=== PATIENT | male | born 1940 | race Caucasian/White ===

== ENCOUNTER 2018-06-11 14:05 | Emergency (ER) | payer OTHER ==
[~2018-06-11] VITALS: Ht 165.1 cm; Wt 79.4 kg
[~2018-06-11 14:05] MED LIST: ATOR10TA; CLOP75TA28; DOCU-94; DOXY150C2; ENOX30IN5; HYDR-1421
[2018-06-11] MEDS ORDERED: SODIUM CHLORIDE 0.9% 500 ML IVB ONE (14:16)
[2018-06-11] MEDS ORDERED: KETOROLAC TROMETH 30 MG/ML 1ML VIAL IV ONE (14:30)
[2018-06-11 14:33] LABS: Urine Bacteria FEW /hpf (None Seen); Urine Blood 3+ /uL (Negative); Urine Specific Gravity 1.007 (1.001-1.035); Urine WBC 1 /hpf (0 - 3)
[2018-06-11 14:42] LABS: Basophils # (auto) 0 uL; Basophils % (auto) 0.6 % (0.0-2.0); Eosinophils # (auto) 0.1 uL; Eosinophils % (auto) 1.5 % (0.0-7.0); Hematocrit 50.4 % (41.0-53.0); Hemoglobin 16.9 g/dL (13.5-17.5); Lymphocytes # (auto) 0.7 uL; Lymphocytes % (auto) 8.3 % (10.0-50.0); Mean Corpuscular Hemoglobin 31.2 pg (28.0-32.0); Mean Corpuscular Hgb Conc. 33.5 g/dL (32.0-36.0); Mean Corpuscular Volume 93.1 fL (80.0-100.0); Monocytes # (auto) 0.7 uL; Monocytes % (auto) 8.5 % (0.0-12.0); Neutrophils % (auto) 81.1 % (37.0-80.0); Nucleated Red Blood Cells % 0.1 %; Platelet Count (auto) 184 10^3/uL (140-450); Red Blood Cells 5.41 10^6/uL (4.5-5.90); Red Cell Distribution Width 13.6 % (11.8-14.3); White Blood Cell 8.7 10^3/uL (4.4-10.8)
[2018-06-11 14:59] LABS: Albumin 3.7 g/dL (3.4-5.0); BUN/Creatinine Ratio 11.9; Calcium 8.7 mg/dL (8.5-10.1); Potassium 4.3 mmol/L (3.5-5.1)
[2018-06-11 15:02] LABS: Bilirubin, Total 0.5 mg/dL (0.2-1.0); Total Protein 7.4 g/dL (6.4-8.2)
[2018-06-11 15:15] VITALS: BP 149/74
== END 2018-06-11 17:08 | disposition home or self-care (01) ==
LOC: ER 14:05
DX: N20.9 Urinary calculus, unspecified (principal); E78.5 Hyperlipidemia, unspecified; I10 Essential (primary) hypertension; Z79.01 Long term (current) use of anticoagulants; Z79.899 Other long term (current) drug therapy; Z86.73 Personal history of transient ischemic attack (TIA), and cerebral infarction without residual deficits; Z96.698 Presence of other orthopedic joint implants; Z96.643 Presence of artificial hip joint, bilateral
CPT/HCPCS: 36415; 74176; 80053; 81001; 82150; 83690; 85025; 94761; 96374; 99284; J1885; J7040; 96361

== ENCOUNTER 2020-09-28 10:26 | Inpatient (IN) | payer OTHER ==
[~2020-09-28] VITALS: Ht 165.1 cm; Wt 68.0 kg
[2020-09-28] MEDS ORDERED: ONDANSETRON HCL 4 MG/2 ML VIAL IV ONE (11:00)
[2020-09-28] MEDS ORDERED: KETOROLAC TROMETH 30 MG/ML 1ML VIAL IV ONE (11:00)
[2020-09-28] MEDS ORDERED: SODIUM CHLORIDE 0.9% 1,000 ML IVB ONE (11:00)
[2020-09-28 11:46] LABS: Albumin 3.8 g/dL (3.4-5.0); Calcium 8.2 mg/dL (8.5-10.1); Potassium 4.7 mmol/L (3.5-5.1)
[2020-09-28 11:50] LABS: Bilirubin, Total 0.7 mg/dL (0.2-1.0)
[2020-09-28 12:20] LABS: Basophils # (auto) 0 10 ^3/uL (0-0.2); Basophils % (auto) 0.3 % (0.0-2.0); Eosinophils # (auto) 0 10 ^3/uL (0-0.8); Eosinophils % (auto) 0.4 % (0.0-7.0); Hematocrit 46.5 % (41.0-53.0); Hemoglobin 16.5 g/dL (13.5-17.5); Lymphocytes % (auto) 10.2 % (10.0-50.0); Mean Corpuscular Hemoglobin 32.4 pg (28.0-32.0); Mean Corpuscular Hgb Conc. 35.5 g/dL (32.0-36.0); Mean Corpuscular Volume 91.3 fL (80.0-100.0); Monocytes # (auto) 0.9 10 ^3/uL (0-1.3); Monocytes % (auto) 8.8 % (0.0-12.0); Neutrophils % (auto) 80.3 % (37.0-80.0); Nucleated Red Blood Cells % 0.1 %; Platelet Count (auto) 158 10^3/uL (140-450); Red Blood Cells 5.09 10^6/uL (4.5-5.90); Red Cell Distribution Width 13.9 % (11.8-14.3); White Blood Cell 9.9 10^3/uL (4.4-10.8)
[2020-09-28 12:24] LABS: Urine Bacteria NONE SEEN /hpf (None Seen); Urine Blood 2+ /uL (Negative); Urine Specific Gravity 1.028 (1.001-1.035); Urine WBC 2 /hpf (0 - 3)
[2020-09-28] MEDS ORDERED: MORPHINE SULF INJ 2 MG/ML SYRINGE 1ML IV PRN ×2 (13:30)
[2020-09-28] MEDS ORDERED: ACETAMINOPHEN 325 MG TAB PO PRN (13:30)
[2020-09-28] MEDS ORDERED: HYDROcodone-ACET 5/325MG TAB PO PRN (13:30)
[2020-09-28] MEDS ORDERED: ONDANSETRON HCL 4 MG/2 ML VIAL IV PRN (13:30)
[2020-09-28] MEDS ORDERED: TAMSULOSIN HYDROCHLORIDE 0.4 MG CAP PO ONE (13:30)
[2020-09-28] MEDS ORDERED: NITROGLYCERIN 0.4 MG SL TAB SL PRN (13:30)
[2020-09-28] MEDS ORDERED: MANNITOL FTV 25% 12.5 GM/50 ML 50 ML IV ONE ×2 (13:30→14:45)
[2020-09-28] MEDS ORDERED: PHE100C PO (14:01)
[2020-09-28] MEDS: SODIUM CHLORIDE 0.9% 1,000 ML IV SCH ×2 (14:03→17:17)
[2020-09-28] MEDS ORDERED: TAM04C PO (17:09)
[2020-09-28] MEDS ORDERED: HYDR1TAB97 PO (17:09)
[2020-09-28] MEDS ORDERED: ACET325T10 PO (17:09)
[2020-09-28 17:20] VITALS: BP 129/75
[2020-09-28] MEDS ORDERED: ATORVASTATIN 20 MG TAB PO SCH (22:00)
[2020-09-29] MEDS ORDERED: PHENYTOIN SODIUM 100 MG CAP PO SCH (10:00)
[2020-09-29] MEDS ORDERED: CLOPIDOGREL BISULFATE 75 MG TAB PO SCH (10:00)
== END 2020-09-28 21:15 | disposition home or self-care (01) | DRG 694 ==
LOC: ER 10:26 → OVERFLOW 13:28 → CENTRAL 14:47
PROVIDERS: ADMIT Internal Medicine; ATTEND Internal Medicine
DX: N13.2 Hydronephrosis with renal and ureteral calculous obstruction (principal); J98.11 Atelectasis; N18.30 Chronic kidney disease, stage 3 unspecified; Z20.822 Contact with and (suspected) exposure to COVID-19; N40.0 Benign prostatic hyperplasia without lower urinary tract symptoms; I12.9 Hypertensive chronic kidney disease with stage 1 through stage 4 chronic kidney disease, or unspecified chronic kidney disease; G40.909 Epilepsy, unspecified, not intractable, without status epilepticus; K57.30 Diverticulosis of large intestine without perforation or abscess without bleeding; N28.1 Cyst of kidney, acquired; K44.9 Diaphragmatic hernia without obstruction or gangrene; Z90.89 Acquired absence of other organs; Z86.73 Personal history of transient ischemic attack (TIA), and cerebral infarction without residual deficits; Z79.02 Long term (current) use of antithrombotics/antiplatelets; Z79.899 Other long term (current) drug therapy
CPT/HCPCS: 36415; 74176; 80053; 81001; 83690; 85025; 85049; 87426; 96361; 96374; 96375; G0378; J1885; J2405

== ENCOUNTER 2022-06-25 12:21 | Inpatient (IN) | payer OTHER ==
[~2022-06-25] VITALS: Ht 172.7 cm; Wt 77.2 kg
[~2022-06-25 12:21] MED LIST changes: +ACET325T10 PO; -DOCU-94; -DOXY150C2; -ENOX30IN5; -HYDR-1421; +HYDR1TAB97 PO; +PHE100C PO; +TAM04C PO
[2022-06-25 13:03] LABS: Basophils # (auto) 0.1 10 ^3/uL (0-0.2); Basophils % (auto) 0.5 % (0.0-2.0); Eosinophils # (auto) 0 10 ^3/uL (0-0.8); Eosinophils % (auto) 0.3 % (0.0-7.0); Hematocrit 48.1 % (41.0-53.0); Hemoglobin 16.1 g/dL (13.5-17.5); Lymphocytes % (auto) 7.1 % (10.0-50.0); Mean Corpuscular Hemoglobin 31.4 pg (28.0-32.0); Mean Corpuscular Hgb Conc. 33.4 g/dL (32.0-36.0); Mean Corpuscular Volume 93.8 fL (80.0-100.0); Monocytes # (auto) 0.8 10 ^3/uL (0-1.3); Monocytes % (auto) 5.5 % (0.0-12.0); Neutrophils # (auto) 12.3 10 ^3/uL (1.6-8.6); Neutrophils % (auto) 86.6 % (37.0-80.0); Red Blood Cells 5.13 10^6/uL (4.5-5.90); Red Cell Distribution Width 14.7 % (11.8-14.3); White Blood Cell 14.2 10^3/uL (4.4-10.8)
[2022-06-25 13:24] LABS: INR 1.08 (0.9-1.15); Partial Thromboplastin Time 23.9 sec (24.6-33.4)
[2022-06-25 13:35] LABS: Albumin 3.6 g/dL (3.4-5.0); Calcium 8.6 mg/dL (8.5-10.1); Potassium 4.7 mmol/L (3.5-5.1)
[2022-06-25 13:40] LABS: BUN/Creatinine Ratio 29.6 (10.0-20.0); Bilirubin, Total 0.5 mg/dL (0.2-1.0); Total Protein 6.5 g/dL (6.4-8.2)
[2022-06-25] MEDS ORDERED: cefTRIAXone 1GM/50ML D5W 50 ML IV ONE (16:30)
[2022-06-25] MEDS ORDERED: ONDANSETRON HCL 4 MG/2 ML VIAL IV PRN (17:00)
[2022-06-25] MEDS ORDERED: ACETAMINOPHEN 500 MG TAB PO PRN (17:00)
[2022-06-25] MEDS ORDERED: NITROGLYCERIN 0.4 MG SL TAB SL PRN (17:00)
[2022-06-25] MEDS ORDERED: hydrALAZINE HCL 20 MG/ML VL IV PRN (17:00)
[2022-06-25] MEDS ORDERED: MORPHINE SULFATE INJ 2 MG/ml SYRG IV PRN (17:00)
[2022-06-25] MEDS ORDERED: ACETAMINOPHEN 325 MG TAB PO PRN (17:00)
[2022-06-25 18:24] LABS: Urine Bacteria MOD /hpf (None Seen); Urine Blood 3+ /uL (Negative); Urine WBC 10 /hpf (0 - 3)
[2022-06-25 18:28] LABS: Urine Specific Gravity 1.023 (1.001-1.035)
[2022-06-25] MEDS: D5W/SOD CHLO 0.9% 1,000 ML IV SCH (20:12)
[2022-06-26] MEDS: D5W/SOD CHLO 0.9% 1,000 ML IV SCH ×2 (06:20→09:36)
[2022-06-26] MEDS: FAMOTIDINE 20 MG TAB PO SCH (09:35)
[2022-06-26] MEDS: cefTRIAXone 1GM/50ML D5W 50 ML IV SCH (09:35)
[2022-06-26 11:23] LABS: Urine Bacteria FEW /hpf (None Seen); Urine Blood 3+ /uL (Negative); Urine Specific Gravity 1.009 (1.001-1.035); Urine WBC 6 /hpf (0 - 3)
[2022-06-26] MEDS ORDERED: IOHEXOL 300 MG/ML 100ML BOTTLE IJ ONE (13:19)
[2022-06-26] MEDS ORDERED: TAMSULOSIN HYDROCHLORIDE 0.4 MG CAP PO ONE (15:15)
[2022-06-26] MEDS ORDERED: FINASTERIDE 5 MG TAB PO ONE (15:15)
[2022-06-26] MEDS ORDERED: FINA5TAB4 PO (15:50)
[2022-06-26] MEDS ORDERED: MORPHINE SULFATE INJ 2 MG/ml SYRG IV PRN (17:15)
[2022-06-26] MEDS ORDERED: PHEN50CH4 OR (18:07)
[2022-06-26] MEDS: CARBIDOPA W LEVODOPA 10/100mg TABLET PO SCH (22:00)
[2022-06-26] MEDS ORDERED: LORazepam 2MG/ML-1ML VIAL IV ONE (23:30)
[2022-06-27] MEDS ORDERED: MELATONIN 5 MG TAB PO ONE (00:30)
[2022-06-27] MEDS ORDERED: diphenhdrAMINE HCL 50 MG/1 ML VL IV ONE (02:00)
[2022-06-27 07:44] LABS: Basophils # (auto) 0.1 10 ^3/uL (0-0.2); Basophils % (auto) 0.8 % (0.0-2.0); Eosinophils # (auto) 0.1 10 ^3/uL (0-0.8); Eosinophils % (auto) 1.6 % (0.0-7.0); Hematocrit 41.2 % (41.0-53.0); Hemoglobin 14.4 g/dL (13.5-17.5); Lymphocytes # (auto) 1.2 10 ^3/uL (0.4-5.4); Lymphocytes % (auto) 13.3 % (10.0-50.0); Mean Corpuscular Hemoglobin 32.1 pg (28.0-32.0); Mean Corpuscular Hgb Conc. 34.9 g/dL (32.0-36.0); Mean Corpuscular Volume 91.8 fL (80.0-100.0); Monocytes # (auto) 1.1 10 ^3/uL (0-1.3); Monocytes % (auto) 12.9 % (0.0-12.0); Neutrophils # (auto) 6.2 10 ^3/uL (1.6-8.6); Neutrophils % (auto) 71.4 % (37.0-80.0); Nucleated Red Blood Cells % 0.2 %; Red Blood Cells 4.49 10^6/uL (4.5-5.90); Red Cell Distribution Width 14.5 % (11.8-14.3); White Blood Cell 8.7 10^3/uL (4.4-10.8)
[2022-06-27 08:01] LABS: INR 1.12 (0.9-1.15); Partial Thromboplastin Time 27.5 sec (24.6-33.4)
[2022-06-27 08:05] LABS: Calcium 8.4 mg/dL (8.5-10.1); Potassium 4.1 mmol/L (3.5-5.1)
[2022-06-27] MEDS: D5W/SOD CHLO 0.9% 1,000 ML IV SCH (09:00)
[2022-06-27] MEDS: cefTRIAXone 1GM/50ML D5W 50 ML IV SCH (09:00)
[2022-06-27] MEDS: FAMOTIDINE 20 MG TAB PO SCH (09:30)
[2022-06-27] MEDS: CARBIDOPA W LEVODOPA 10/100mg TABLET PO SCH (09:30)
[2022-06-27 09:43] VITALS: BP 97/55
[2022-06-27] MEDS ORDERED: FINASTERIDE 5 MG TAB PO SCH (10:00)
[2022-06-27] MEDS ORDERED: KEP500T PO (13:11)
[2022-06-27] MEDS ORDERED: CIPR-173 PO (13:11)
[2022-06-27 14:05] VITALS: BP 116/74
== END 2022-06-27 16:28 | disposition home or self-care (01) | DRG 101 ==
LOC: EDBD 12:21 → ER 12:21 → EDSEX 12:21 → TELE 16:57 → TELE-WESTW 06-26 16:09
PROVIDERS: ADMIT Hospitalist; ATTEND Hospitalist
DX: G40.909 Epilepsy, unspecified, not intractable, without status epilepticus (principal); N39.0 Urinary tract infection, site not specified; S00.83XA Contusion of other part of head, initial encounter; F03.90 Unspecified dementia, unspecified severity, without behavioral disturbance, psychotic disturbance, mood disturbance, and anxiety; I10 Essential (primary) hypertension; E78.5 Hyperlipidemia, unspecified; G20 Parkinson's disease; I25.10 Atherosclerotic heart disease of native coronary artery without angina pectoris; Z96.643 Presence of artificial hip joint, bilateral; N40.1 Benign prostatic hyperplasia with lower urinary tract symptoms; M19.09 Primary osteoarthritis, other specified site; R32 Unspecified urinary incontinence; R29.6 Repeated falls; W19.XXXA Unspecified fall, initial encounter; X58.XXXA Exposure to other specified factors, initial encounter; Z82.49 Family history of ischemic heart disease and other diseases of the circulatory system; Z86.73 Personal history of transient ischemic attack (TIA), and cerebral infarction without residual deficits; Z87.442 Personal history of urinary calculi; Z79.899 Other long term (current) drug therapy; Y92.009 Unspecified place in unspecified non-institutional (private) residence as the place of occurrence of the external cause; Z87.891 Personal history of nicotine dependence
CPT/HCPCS: 36415; 70450; 70486; 70551; 71045; 72125; 72192; 74178; 80048; 80053; 80185; 81001; 84484; 85025; 85379; 85610; 85730; 87086; 87426; 93306; 97163; G0378; J0696; J7060

== ENCOUNTER 2022-08-11 13:53 | Inpatient (IN) | payer OTHER ==
[~2022-08-11] VITALS: Ht 165.1 cm; Wt 76.9 kg
[~2022-08-11 13:53] MED LIST changes: +CIPR-173 PO; +FINA5TAB4 PO; +KEP500T PO; -PHE100C PO
[2022-08-11 15:14] LABS: Basophils # (auto) 0 10 ^3/uL (0-0.2); Basophils % (auto) 0.6 % (0.0-2.0); Eosinophils # (auto) 0.3 10 ^3/uL (0-0.8); Eosinophils % (auto) 4.6 % (0.0-7.0); Hematocrit 47.6 % (41.0-53.0); Hemoglobin 15.9 g/dL (13.5-17.5); Lymphocytes # (auto) 1.1 10 ^3/uL (0.4-5.4); Lymphocytes % (auto) 16.7 % (10.0-50.0); Mean Corpuscular Hgb Conc. 33.4 g/dL (32.0-36.0); Mean Corpuscular Volume 92.7 fL (80.0-100.0); Monocytes # (auto) 0.7 10 ^3/uL (0-1.3); Monocytes % (auto) 11.4 % (0.0-12.0); Neutrophils # (auto) 4.4 10 ^3/uL (1.6-8.6); Neutrophils % (auto) 66.7 % (37.0-80.0); Nucleated Red Blood Cells % 0.1 %; Red Blood Cells 5.14 10^6/uL (4.5-5.90); Red Cell Distribution Width 13.3 % (11.8-14.3); White Blood Cell 6.6 10^3/uL (4.4-10.8)
[2022-08-11 15:34] LABS: Calcium 8.9 mg/dL (8.5-10.1); Magnesium 2.6 mg/dL (1.6-2.6); Potassium 4.9 mmol/L (3.5-5.1)
[2022-08-11 15:37] LABS: BUN/Creatinine Ratio 19.4 (10.0-20.0); Bilirubin, Total 0.8 mg/dL (0.2-1.0); Total Protein 7.2 g/dL (6.4-8.2)
[2022-08-11 15:41] LABS: INR 1.03 (0.9-1.15); Partial Thromboplastin Time 28.2 sec (24.6-33.4)
[2022-08-11] MEDS ORDERED: HYDROcodone-ACET 5/325MG TAB PO PRN (22:00)
[2022-08-11] MEDS ORDERED: ONDANSETRON HCL 4 MG/2 ML VIAL IV PRN (22:00)
[2022-08-11] MEDS ORDERED: ACETAMINOPHEN 500 MG TAB PO PRN (22:00)
[2022-08-11] MEDS ORDERED: DOCUSATE SOD 100 MG CAP PO PRN (22:00)
[2022-08-11] MEDS ORDERED: NITROGLYCERIN 0.4 MG SL TAB SL PRN (23:15)
[2022-08-11] MEDS ORDERED: MORPHINE SULFATE INJ 2 MG/ml SYRG IV PRN (23:15)
[2022-08-11] MEDS: SODIUM CHLORIDE 0.9% 1,000 ML IV SCH (23:32)
[2022-08-11] MEDS: ATORVASTATIN 20 MG TAB PO SCH (23:32)
[2022-08-12 06:15] LABS: Basophils # (auto) 0 10 ^3/uL (0-0.2); Basophils % (auto) 0.6 % (0.0-2.0); Eosinophils # (auto) 0.4 10 ^3/uL (0-0.8); Eosinophils % (auto) 5.9 % (0.0-7.0); Hematocrit 44.9 % (41.0-53.0); Hemoglobin 15.2 g/dL (13.5-17.5); Lymphocytes # (auto) 1.4 10 ^3/uL (0.4-5.4); Lymphocytes % (auto) 22.8 % (10.0-50.0); Mean Corpuscular Hemoglobin 31.3 pg (28.0-32.0); Mean Corpuscular Hgb Conc. 33.8 g/dL (32.0-36.0); Mean Corpuscular Volume 92.4 fL (80.0-100.0); Monocytes # (auto) 0.9 10 ^3/uL (0-1.3); Neutrophils # (auto) 3.5 10 ^3/uL (1.6-8.6); Neutrophils % (auto) 56.7 % (37.0-80.0); Nucleated Red Blood Cells % 0.3 %; Red Blood Cells 4.85 10^6/uL (4.5-5.90); Red Cell Distribution Width 12.8 % (11.8-14.3); White Blood Cell 6.2 10^3/uL (4.4-10.8)
[2022-08-12 06:40] LABS: Potassium 4.3 mmol/L (3.5-5.1)
[2022-08-12 06:48] LABS: Albumin 3.3 g/dL (3.4-5.0); Bilirubin, Total 0.6 mg/dL (0.2-1.0); Calcium 8.4 mg/dL (8.5-10.1); Total Protein 6.6 g/dL (6.4-8.2)
[2022-08-12] MEDS: ASPirin 81 mg TAB PO SCH (09:41)
[2022-08-12] MEDS: levETIRAcetam 500 MG TAB PO SCH ×2 (09:41→21:35)
[2022-08-12] MEDS: SODIUM CHLORIDE 0.9% 1,000 ML IV SCH (14:40)
[2022-08-12 17:35] VITALS: BP 124/74
[2022-08-12 19:14] LABS: Hepatitis C Antibody Negative (Negative)
[2022-08-12] MEDS: ATORVASTATIN 20 MG TAB PO SCH (21:35)
[2022-08-12 22:00] VITALS: BP 105/52
[2022-08-13 05:00] VITALS: BP 112/76
[2022-08-13] MEDS: SODIUM CHLORIDE 0.9% 1,000 ML IV SCH (07:20)
[2022-08-13 09:00] VITALS: BP 130/72
[2022-08-13] MEDS: levETIRAcetam 500 MG TAB PO SCH (09:06)
[2022-08-13] MEDS: ASPirin 81 mg TAB PO SCH (09:06)
[2022-08-13 13:00] VITALS: BP 103/62
== END 2022-08-13 14:28 | disposition home or self-care (01) | DRG 69 ==
LOC: ER 13:53 → TELE 23:10 → TELE-WESTW 08-12 15:29
PROVIDERS: ADMIT Nurse Practitioner Family; ATTEND Internal Medicine
DX: G45.9 Transient cerebral ischemic attack, unspecified (principal); I62.03 Nontraumatic chronic subdural hemorrhage; I10 Essential (primary) hypertension; G20 Parkinson's disease; E78.5 Hyperlipidemia, unspecified; G40.909 Epilepsy, unspecified, not intractable, without status epilepticus; R26.81 Unsteadiness on feet; Z86.73 Personal history of transient ischemic attack (TIA), and cerebral infarction without residual deficits; Z87.442 Personal history of urinary calculi
CPT/HCPCS: 36415; 70450; 71045; 80053; 82962; 83735; 83880; 84484; 85025; 85610; 85730; 86803; 87340; 93005; G0378

== ENCOUNTER 2022-08-24 19:41 | Emergency (ER) | payer OTHER ==
[~2022-08-24] VITALS: Ht 165.1 cm; Wt 74.9 kg
[~2022-08-24 19:41] MED LIST changes: -ACET325T10 PO; -CIPR-173 PO; -HYDR1TAB97 PO; -TAM04C PO
[2022-08-24 21:11] LABS: Albumin 3.5 g/dL (3.4-5.0); Calcium 8.5 mg/dL (8.5-10.1); Potassium 4.1 mmol/L (3.5-5.1)
[2022-08-24 21:15] LABS: BUN/Creatinine Ratio 19.6 (10.0-20.0); Bilirubin, Total 0.4 mg/dL (0.2-1.0); Total Protein 6.8 g/dL (6.4-8.2)
[2022-08-24 21:20] LABS: Basophils # (auto) 0 10 ^3/uL (0-0.2); Basophils % (auto) 0.5 % (0.0-2.0); Eosinophils # (auto) 0.3 10 ^3/uL (0-0.8); Eosinophils % (auto) 5.6 % (0.0-7.0); Hematocrit 46.2 % (41.0-53.0); Hemoglobin 15.7 g/dL (13.5-17.5); Lymphocytes # (auto) 1.6 10 ^3/uL (0.4-5.4); Lymphocytes % (auto) 25.8 % (10.0-50.0); Mean Corpuscular Hemoglobin 31.5 pg (28.0-32.0); Mean Corpuscular Hgb Conc. 34.1 g/dL (32.0-36.0); Mean Corpuscular Volume 92.3 fL (80.0-100.0); Monocytes % (auto) 15.9 % (0.0-12.0); Neutrophils # (auto) 3.3 10 ^3/uL (1.6-8.6); Neutrophils % (auto) 52.2 % (37.0-80.0); Nucleated Red Blood Cells % 0.2 %; Red Cell Distribution Width 12.8 % (11.8-14.3); White Blood Cell 6.2 10^3/uL (4.4-10.8)
[2022-08-24 21:32] LABS: INR 1.07 (0.9-1.15); Partial Thromboplastin Time 27.1 sec (24.6-33.4)
[2022-08-24 22:00] VITALS: BP 148/81
== END 2022-08-24 22:46 | disposition home or self-care (01) ==
LOC: ER 19:41
DX: I62.03 Nontraumatic chronic subdural hemorrhage (principal); E78.5 Hyperlipidemia, unspecified; I10 Essential (primary) hypertension; Z86.73 Personal history of transient ischemic attack (TIA), and cerebral infarction without residual deficits; Z87.442 Personal history of urinary calculi
CPT/HCPCS: 36415; 70450; 80053; 85025; 85610; 85730

== ENCOUNTER 2023-10-01 18:43 | Emergency (ER) | payer OTHER ==
[~2023-10-01] VITALS: Ht 165.1 cm; Wt 72.7 kg
[~2023-10-01 18:43] MED LIST changes: -ATOR10TA; +ATOR10TA PO; +AUG875T PO; +BACL10TA PO; -CLOP75TA28; +CLOP75TA28 PO; +TRAM50TA2 PO
[2023-10-01] MEDS ORDERED: MAGN100T6 OR (22:19)
[2023-10-01] MEDS ORDERED: DOCU-96 PO (22:24)
[2023-10-01] MEDS: FLEET ENEMA(ADULT) 135 ML PR ONE (23:08)
[2023-10-01 23:30] VITALS: BP 142/76; PULSE 76; RESP 18; TEMP 98.3; O2SAT 97
== END 2023-10-01 23:55 | disposition home or self-care (01) ==
LOC: EDBD 18:43 → ER 18:43
DX: K59.00 Constipation, unspecified (principal); I10 Essential (primary) hypertension; E78.5 Hyperlipidemia, unspecified; Z86.73 Personal history of transient ischemic attack (TIA), and cerebral infarction without residual deficits; Z87.442 Personal history of urinary calculi; Z98.890 Other specified postprocedural states; Z79.899 Other long term (current) drug therapy
CPT/HCPCS: 74018

== ENCOUNTER 2023-12-15 07:59 | Day surgery (SDC) | payer OTHER ==
[~2023-12-15] VITALS: Ht 165.1 cm; Wt 74.4 kg
[2023-12-15] VITALS (12 sets, daily range): BP systolic 109–139; BP diastolic 56–81; PULSE 55–74; RESP 12–18; TEMP 98.4; O2SAT 94–95
[~2023-12-15 07:59] MED LIST changes: -AUG875T PO; +DOCU-96 PO; +MAGN100T6 OR
[2023-12-15] MEDS ORDERED: IODIXANOL 320MG/ML 100ML BTL IV ONE (08:00)
[2023-12-15] MEDS ORDERED: HEPARIN SODIUM (PORCINE) 5000 UNITS/ML 1ML VIAL ONE (09:03)
[2023-12-15] MEDS ORDERED: ANGIOMAX 250 MG VIAL IV ONE (09:03)
[2023-12-15] MEDS ORDERED: LIDOCAINE 2%HCL (LOCAL ANESTH.) INJ 20ML MDV ONE (09:04)
[2023-12-15] MEDS ORDERED: VERAPAMIL 2.5MG/ML INJ 2ML VIAL IV ONE (09:04)
[2023-12-15] MEDS ORDERED: fentaNYL CITRATE 100 MCG/2 ML VL ONE (09:04)
[2023-12-15] MEDS ORDERED: MIDAZOLAM HCL 2MG/2ML 2ml VIAL (1mg/ml) ONE (09:04)
[2023-12-15] MEDS ORDERED: SODIUM CHL 0.9% 50 ML ONE (09:04)
[2023-12-19] MEDS ORDERED: ASPI81CH59 PO (13:35)
[2024-01-03] MEDS ORDERED: TAMS0.4C39 PO (13:35)
[2024-01-04] MEDS ORDERED: MET25T PO (13:35)
[2024-01-07] MEDS ORDERED: ATOR-507 PO (13:35)
== END 2023-12-15 15:00 | disposition home or self-care (01) ==
LOC: CATH 07:59
PROVIDERS: ATTEND Internal Medicine
DX: I25.10 Atherosclerotic heart disease of native coronary artery without angina pectoris (principal); R94.39 Abnormal result of other cardiovascular function study; E78.5 Hyperlipidemia, unspecified; Z79.01 Long term (current) use of anticoagulants; Z79.82 Long term (current) use of aspirin; Z79.899 Other long term (current) drug therapy
CPT/HCPCS: 93454; C1725; C1769; C1887; C1894; J0583; J2250; J3010; Q9967; 99152; 99153

== ENCOUNTER 2024-01-11 06:59 | Inpatient (IN) | payer OTHER ==
[~2024-01-11] VITALS: Ht 165.1 cm; Wt 72.6 kg
[2024-01-11 01:00] VITALS: BP 139/78; PULSE 73; RESP 20; TEMP 97; O2SAT 93
[~2024-01-11 06:59] MED LIST changes: +ASPI81CH59 PO; +ATOR-507 PO; +MET25T PO; +TAMS0.4C39 PO
[2024-01-11 07:37] LABS: Basophils # (auto) 0 10 ^3/uL (0-0.2); Basophils % (auto) 0.3 % (0.0-2.0); Eosinophils # (auto) 0.4 10 ^3/uL (0-0.8); Hematocrit 35.7 % (41.0-53.0); Lymphocytes # (auto) 1.7 10 ^3/uL (0.4-5.4); Lymphocytes % (auto) 18.5 % (10.0-50.0); Mean Corpuscular Hemoglobin 31.4 pg (28.0-32.0); Mean Corpuscular Hgb Conc. 33.6 g/dL (32.0-36.0); Mean Corpuscular Volume 93.4 fL (80.0-100.0); Neutrophils % (auto) 66.2 % (37.0-80.0); Platelet Count (auto) 271 10^3/uL (140-450); Red Blood Cells 3.82 10^6/uL (4.5-5.90); Red Cell Distribution Width 14.1 % (11.8-14.3); White Blood Cell 9.1 10^3/uL (4.4-10.8)
[2024-01-11] MEDS: IOHEXOL 350 MG/ML 100ML IJ ONE (08:06)
[2024-01-11] MEDS: FUROSEMIDE 40 MG/4 ML VIAL IV ONE (10:19)
[2024-01-11] MEDS ORDERED: ACETAMINOPHEN 325 MG TAB PO PRN (14:45)
[2024-01-11] MEDS ORDERED: MORPHINE SULFATE INJ 2 MG/ml SYRG IV PRN ×2 (14:45)
[2024-01-11] MEDS ORDERED: NITROGLYCERIN 0.4 MG SL TAB SL PRN (14:45)
[2024-01-11] MEDS ORDERED: ONDANSETRON HCL 4 MG/2 ML VIAL IV PRN (14:45)
[2024-01-11 14:55] LABS: Chloride 109 mmol/L (98-107); Potassium 4.1 mmol/L (3.5-5.1); Sodium 140 mmol/L (136-145)
[2024-01-11 14:56] LABS: Anion Gap 9 (5-15); Carbon Dioxide 22 mmol/L (20-31)
[2024-01-11 14:57] LABS: Calcium 9.4 mg/dL (8.7-10.4)
[2024-01-11 15:01] LABS: Glucose 111 mg/dL (74-106)
[2024-01-11 15:02] LABS: BUN/Creatinine Ratio 17.6 (10.0-20.0); Blood Urea Nitrogen 18 mg/dL (9-23)
[2024-01-11] MEDS: cefTRIAXone 1GM/50ML D5W 50 ML IV SCH (16:43)
[2024-01-11] MEDS: AZITHROMYCIN 500MG/ 250ML 250 ML IV ONE (16:44)
[2024-01-11] MEDS: FUROSEMIDE 40 MG/4 ML VIAL IV SCH (17:21)
[2024-01-11] MEDS: FINASTERIDE 5 MG TAB PO SCH (17:21)
[2024-01-11] MEDS: HYDROcodone-ACET 5/325MG TAB PO PRN (20:01)
[2024-01-11 21:45] VITALS: BP 129/79; PULSE 76; RESP 20; TEMP 97.6; O2SAT 94
[2024-01-12] VITALS (7 sets, daily range): BP systolic 109–139; BP diastolic 63–80; PULSE 70–83; RESP 16–20; TEMP 97–98; O2SAT 93–98
[2024-01-12] MEDS: ATORVASTATIN 20 MG TAB PO SCH (00:29)
[2024-01-12] MEDS: DOCUSATE SOD 100 MG CAP PO SCH (00:30)
[2024-01-12] MEDS: levETIRAcetam 500 MG TAB PO SCH (00:30)
[2024-01-12 05:55] LABS: Basophils # (auto) 0.1 10 ^3/uL (0-0.2); Basophils % (auto) 0.5 % (0.0-2.0); Eosinophils # (auto) 0.5 10 ^3/uL (0-0.8); Eosinophils % (auto) 4.7 % (0.0-7.0); Hematocrit 39.2 % (41.0-53.0); Hemoglobin 13.3 g/dL (13.5-17.5); Lymphocytes # (auto) 1.9 10 ^3/uL (0.4-5.4); Lymphocytes % (auto) 18.4 % (10.0-50.0); Mean Corpuscular Hemoglobin 31.6 pg (28.0-32.0); Monocytes # (auto) 1.1 10 ^3/uL (0-1.3); Monocytes % (auto) 10.4 % (0.0-12.0); Neutrophils # (auto) 6.8 10 ^3/uL (1.6-8.6); Nucleated Red Blood Cells % 0.1 %; Platelet Count (auto) 296 10^3/uL (140-450); Red Blood Cells 4.21 10^6/uL (4.5-5.90); Red Cell Distribution Width 14.1 % (11.8-14.3); White Blood Cell 10.4 10^3/uL (4.4-10.8)
[2024-01-12 06:08] LABS: INR 1.11 (0.9-1.15); Partial Thromboplastin Time 26.2 SEC (24.5-34.5); Prothrombin Time 11.7 sec (9.3-11.8)
[2024-01-12 06:16] LABS: Triglycerides 94 mg/dL (< 150)
[2024-01-12 06:17] LABS: LDL Cholesterol 60 mg/dL (< 100)
[2024-01-12 06:18] LABS: Cholesterol 124 mg/dL (< 200); HDL Cholesterol 50 mg/dL (40-59)
[2024-01-12 06:23] LABS: Alanine Aminotransferase 26 U/L (7-40); Albumin 4.3 g/dL (3.2-4.8); Alkaline Phosphatase 103 U/L (46-116); Anion Gap 10 (5-15); Aspartate Aminotransferase 24 U/L (13-40); BUN/Creatinine Ratio 16.7 (10.0-20.0); Blood Urea Nitrogen 17 mg/dL (9-23); Calcium 9.3 mg/dL (8.7-10.4); Carbon Dioxide 26 mmol/L (20-31); Chloride 105 mmol/L (98-107); Glucose 102 mg/dL (74-106); Magnesium 2.2 mg/dL (1.6-2.6); Potassium 3.6 mmol/L (3.5-5.1); Sodium 141 mmol/L (136-145)
[2024-01-12 06:24] LABS: Bilirubin, Total 0.9 mg/dL (0.2-1.0); Total Protein 6.8 g/dL (5.7-8.2)
[2024-01-12] MEDS: ENOXAPARIN SOD 40 MG/0.4 ML SYRINGE SC SCH (10:11)
[2024-01-12] MEDS: CLOPIDOGREL BISULFATE 75 MG TAB PO SCH (10:11)
[2024-01-12] MEDS: AZITHROMYCIN 500MG/ 250ML 250 ML IV SCH (10:12)
[2024-01-13] VITALS (8 sets, daily range): BP systolic 102–117; BP diastolic 63–75; PULSE 60–83; RESP 17–18; TEMP 97.9–99; O2SAT 92–96
[2024-01-13 03:34] LABS: Urine Bacteria None Seen /hpf (None Seen); Urine WBC None Seen /hpf (0 - 3)
[2024-01-13 03:39] LABS: Urine Blood Negative /uL (Negative); Urine Clarity Clear (Clear); Urine Color STRAW (Yellow); Urine Protein, UAD Negative (Negative); Urine Specific Gravity 1.008 (1.001-1.035); Urine Urobilinogen Normal (Negative)
[2024-01-13 03:53] LABS: Amphetamine Screen, Urine Neg (NEGATIVE); Barbiturate Scree,Urine Neg (NEGATIVE); Benzodiazephine Screen, Urine Neg (NEGATIVE); Cocaine Screen, Urine Neg (NEGATIVE); Opiate Scree,Urine Neg (NEGATIVE)
[2024-01-13 03:54] LABS: Cannabinoid Screen, Urine Neg (NEGATIVE); Phencyclidine Screen, Urine Neg (NEGATIVE)
[2024-01-13] MEDS ORDERED: AUG875T PO (16:02)
== END 2024-01-13 22:10 | disposition home health service (06) | DRG 177 ==
LOC: ER 06:59 → TELE 14:34 → TELE-WESTW 14:34
PROVIDERS: ADMIT Internal Medicine; ATTEND Internal Medicine
DX: J15.69 Pneumonia due to other Gram-negative bacteria (principal); I50.33 Acute on chronic diastolic (congestive) heart failure; I11.0 Hypertensive heart disease with heart failure; J15.9 Unspecified bacterial pneumonia; I25.10 Atherosclerotic heart disease of native coronary artery without angina pectoris; G40.909 Epilepsy, unspecified, not intractable, without status epilepticus; E78.5 Hyperlipidemia, unspecified; F03.90 Unspecified dementia, unspecified severity, without behavioral disturbance, psychotic disturbance, mood disturbance, and anxiety; Z95.1 Presence of aortocoronary bypass graft; Z86.73 Personal history of transient ischemic attack (TIA), and cerebral infarction without residual deficits; Z85.828 Personal history of other malignant neoplasm of skin; Z87.442 Personal history of urinary calculi; Z96.649 Presence of unspecified artificial hip joint; Z79.899 Other long term (current) drug therapy
CPT/HCPCS: 36415; 71045; 71275; 80048; 80053; 80061; 80307; 81001; 82306; 82607; 83036; 83735; 83880; 84443; 84484; 85025; 85379; 85610; 85730; 93005; 93306; 96365; 96366; 96375; 97110; 97116; 97163; 97530; 99291; G0378

== ENCOUNTER 2024-01-29 05:36 | Inpatient (IN) | payer OTHER ==
[2024-01-28 20:00] VITALS: PULSE 87; RESP 18; O2SAT 95
[~2024-01-29] VITALS: Ht 165.1 cm; Wt 73.6 kg
[~2024-01-29 05:36] MED LIST changes: -ATOR10TA PO; +AUG875T PO; -MAGN100T6 OR
[2024-01-29 06:18] LABS: Basophils # (auto) 0 10 ^3/uL (0-0.2); Basophils % (auto) 0.5 % (0.0-2.0); Eosinophils # (auto) 0.5 10 ^3/uL (0-0.8); Eosinophils % (auto) 6.6 % (0.0-7.0); Hematocrit 41.6 % (41.0-53.0); Hemoglobin 13.7 g/dL (13.5-17.5); Lymphocytes # (auto) 1.8 10 ^3/uL (0.4-5.4); Lymphocytes % (auto) 25.1 % (10.0-50.0); Mean Corpuscular Hemoglobin 29.8 pg (28.0-32.0); Mean Corpuscular Volume 90.4 fL (80.0-100.0); Monocytes % (auto) 14.5 % (0.0-12.0); Neutrophils # (auto) 3.7 10 ^3/uL (1.6-8.6); Neutrophils % (auto) 53.3 % (37.0-80.0); Platelet Count (auto) 265 10^3/uL (140-450); Red Cell Distribution Width 14.1 % (11.8-14.3)
[2024-01-29 06:37] LABS: Alanine Aminotransferase 13 U/L (7-40); Albumin 4.4 g/dL (3.2-4.8); Alkaline Phosphatase 138 U/L (46-116); Anion Gap 9 (5-15); Aspartate Aminotransferase 19 U/L (13-40); BUN/Creatinine Ratio 21.4 (10.0-20.0); Bilirubin, Total 0.6 mg/dL (0.2-1.0); Blood Urea Nitrogen 22 mg/dL (9-23); Calcium 9.6 mg/dL (8.7-10.4); Carbon Dioxide 25 mmol/L (20-31); Chloride 106 mmol/L (98-107); Glucose 117 mg/dL (74-106); Potassium 4.5 mmol/L (3.5-5.1); Sodium 140 mmol/L (136-145); Total Protein 7.1 g/dL (5.7-8.2)
[2024-01-29] MEDS: MORPHINE SULFATE 4 MG/ML SYR/VIAL ONE (06:59)
[2024-01-29] MEDS: ONDANSETRON HCL 4 MG/2 ML VIAL ONE (06:59)
[2024-01-29] MEDS: ONDANSETRON HCL 4 MG/2 ML VIAL IV ONE (07:00)
[2024-01-29] MEDS: MORPHINE SULFATE 4 MG/ML SYR/VIAL IV ONE (07:01)
[2024-01-29 07:08] VITALS: PULSE 83; RESP 17; O2SAT 94
[2024-01-29 07:30] VITALS: PULSE 78; RESP 14; O2SAT 96
[2024-01-29] MEDS: MAALOX PLUS or MAALOX 30 ML PO ONE (10:11)
[2024-01-29] MEDS: LIDOCAINE VISCOUS 2% 15ML UD PO ONE (10:11)
[2024-01-29] MEDS: DONNATAL 5ml ORAL Elix (BELLADONNA ALK-PHENOBARB) PO ONE (10:12)
[2024-01-29] MEDS ORDERED: NITROGLYCERIN 0.4 MG SL TAB SL PRN (13:15)
[2024-01-29] MEDS ORDERED: MORPHINE SULFATE INJ 2 MG/ml SYRG IV PRN (13:15)
[2024-01-29] MEDS: IOHEXOL 300 MG/ML 100ML BOTTLE IJ ONE (14:05)
[2024-01-29 17:32] VITALS: BP 131/81; PULSE 90; RESP 18; O2SAT 94
[2024-01-29] MEDS: TAMSULOSIN HYDROCHLORIDE 0.4 MG CAP PO SCH (17:59)
[2024-01-29] MEDS: FINASTERIDE 5 MG TAB PO SCH (17:59)
[2024-01-29 20:00] VITALS: PULSE 85; PULSE 87; RESP 18; O2SAT 95
[2024-01-29] MEDS: ONDANSETRON HCL 4 MG/2 ML VIAL IV PRN (20:09)
[2024-01-29] MEDS: MORPHINE SULFATE INJ 2 MG/ml SYRG IV PRN (20:17)
[2024-01-29 21:00] VITALS: BP 118/81; PULSE 87; RESP 18; TEMP 98.1; O2SAT 95
[2024-01-29] MEDS: levETIRAcetam 500 MG TAB PO SCH (21:31)
[2024-01-29] MEDS: METOPROLOL TARTRATE 25 MG TAB PO SCH (21:42)
[2024-01-30 01:00] VITALS: BP 118/75; PULSE 85; RESP 18; TEMP 98.2; O2SAT 95
[2024-01-30 05:00] VITALS: BP 115/73; PULSE 78; RESP 18; TEMP 97.7; O2SAT 95
[2024-01-30 09:00] VITALS: BP 104/72; PULSE 87; RESP 18; TEMP 97.7; O2SAT 94
[2024-01-30] MEDS: ATORVASTATIN 20 MG TAB PO SCH (10:15)
[2024-01-30] MEDS: ASPirin 81 mg TAB PO SCH (10:17)
[2024-01-30] MEDS: ENOXAPARIN SOD 40 MG/0.4 ML SYRINGE SC SCH (10:18)
[2024-01-30] MEDS: FAMOTIDINE (10MG/ML) 2ML VL IV SCH (10:18)
[2024-01-30 13:00] VITALS: BP 96/63; PULSE 74; RESP 18; TEMP 97.4; O2SAT 93
[2024-01-30] MEDS ORDERED: GASTROGRAFIN 120 ML SOL ONE (13:39)
[2024-01-30 17:00] VITALS: BP 104/75; PULSE 78; RESP 17; TEMP 97.5; O2SAT 92
[2024-01-30 21:00] VITALS: BP 111/71; PULSE 84; RESP 16; TEMP 98.4; O2SAT 97
[2024-01-30] MEDS: GOLYTELY 4L KIT PO ONE (23:01)
[2024-01-31] VITALS (7 sets, daily range): BP systolic 104–124; BP diastolic 57–81; PULSE 72–82; RESP 18–20; TEMP 36.4; O2SAT 93–96
[2024-01-31 06:23] LABS: Anion Gap 4 (5-15); Carbon Dioxide 27 mmol/L (20-31); Chloride 109 mmol/L (98-107); Potassium 4.7 mmol/L (3.5-5.1); Sodium 140 mmol/L (136-145)
[2024-01-31 06:24] LABS: Calcium 8.9 mg/dL (8.7-10.4)
[2024-01-31 06:29] LABS: BUN/Creatinine Ratio 13.1 (10.0-20.0); Blood Urea Nitrogen 13 mg/dL (9-23); Glucose 88 mg/dL (74-106)
== END 2024-01-31 17:15 | disposition home or self-care (01) | DRG 390 ==
LOC: ER 05:36 → OVERFLOW 13:06 → WEST WING 17:15
PROVIDERS: ADMIT Hospitalist; ATTEND Hospitalist
DX: K56.600 Partial intestinal obstruction, unspecified as to cause (principal); K59.00 Constipation, unspecified; I10 Essential (primary) hypertension; I25.10 Atherosclerotic heart disease of native coronary artery without angina pectoris; Z87.442 Personal history of urinary calculi; Z79.02 Long term (current) use of antithrombotics/antiplatelets; Z79.82 Long term (current) use of aspirin; Z95.1 Presence of aortocoronary bypass graft; Z86.73 Personal history of transient ischemic attack (TIA), and cerebral infarction without residual deficits; Z82.49 Family history of ischemic heart disease and other diseases of the circulatory system; Z79.899 Other long term (current) drug therapy
CPT/HCPCS: 36415; 71045; 74176; 74177; 74250; 80048; 80053; 83690; 84484; 85025; 93005; 99291; G0378; J2405; J3490

== ENCOUNTER 2024-03-26 18:55 | Inpatient (IN) | payer MEDICARE, OTHER ==
[~2024-03-26] VITALS: Ht 165.1 cm; Wt 76.8 kg
[~2024-03-26 18:55] MED LIST changes: -AUG875T PO; -BACL10TA PO
[2024-03-26] MEDS: SODIUM CHLORIDE 0.9% 1,000 ML IVB ONE (19:30)
[2024-03-26 20:03] LABS: Basophils # (auto) 0 10 ^3/uL (0-0.2); Basophils % (auto) 0.5 % (0.0-2.0); Eosinophils # (auto) 0.1 10 ^3/uL (0-0.8); Eosinophils % (auto) 1.6 % (0.0-7.0); Hematocrit 43.3 % (41.0-53.0); Hemoglobin 14.2 g/dL (13.5-17.5); Lymphocytes # (auto) 1.5 10 ^3/uL (0.4-5.4); Lymphocytes % (auto) 27.9 % (10.0-50.0); Mean Corpuscular Hemoglobin 27.3 pg (28.0-32.0); Mean Corpuscular Hgb Conc. 32.8 g/dL (32.0-36.0); Mean Corpuscular Volume 83.1 fL (80.0-100.0); Monocytes # (auto) 0.7 10 ^3/uL (0-1.3); Monocytes % (auto) 12.8 % (0.0-12.0); Neutrophils # (auto) 3.1 10 ^3/uL (1.6-8.6); Neutrophils % (auto) 57.2 % (37.0-80.0); Nucleated Red Blood Cells % 0.4 %; Platelet Count (auto) 225 10^3/uL (140-450); Red Blood Cells 5.21 10^6/uL (4.5-5.90); Red Cell Distribution Width 16.1 % (11.8-14.3); White Blood Cell 5.5 10^3/uL (4.4-10.8)
--- NOTE | 2024-03-26 20:16 | ED.PDOC ---
GI ASSESSMENT HPI Comments 83-year-old male who came to ER due to abdominal pain. Patient has history of hernia repair, states few hours ago ago he developed diffuse abdominal pain with bilateral pains associated with the nausea and vomiting. Persistence and worsening of abdominal pain prompted patient to come to the ER. Chief Complaint: Abdominal Pain Time Seen by MD: 20:15 Primary Care Provider: JAZZ Barnes Notes: Nurses Notes Allergies: Coded Allergies: NO KNOWN ALLERGIES (Unverified , 12/10/23) Home Meds Active Scripts Docusate Sodium (Dulcolax Stool Softener) 100 Mg Cap, 100 MG PO BID for 3 Days, #6 CAP Prov:JAMIN BETH MD 10/01/23 Levetiracetam (KEPPRA TABLET) 500 Mg Tb, 500 MG PO BID, #120 TAB Prov:CORDELIA BARON MD 06/27/22 Finasteride (Finasteride) 5 Mg Tab, 1 TAB PO QPM, #90 TAB 1 Refill Prov:CORDELIA BARON MD 06/26/22 Reported Medications Aspirin (Aspirin Low Dose) 81 Mg Chw, 1 TAB PO DAILY for 90 Days, #90 01/12/24 Tamsulosin Hcl (Tamsulosin Hcl) 0.4 Mg Cap, 1 CAP PO DAILY for 90 Days, #90 01/12/24 Metoprolol Tartrate (Lopressor) 25 Mg Tb, 1 TAB PO BID for 30 Days, #60 0 Refills 01/12/24 Atorvastatin Calcium (Lipitor) 40 Mg Tab, 1 TAB PO DAILY for 90 Days, #90 01/12/24 Tramadol Hcl (Tramadol Hcl) 50 Mg Tab, 50 MG PO TID PRN for PAIN SCALE 1 THRU 6, MG 01/24/23 Clopidogrel Bisulfate (Plavix) 75 Mg Tab, 75 MG PO DAILY for CHEST PAIN 10/12/11 Information Source: Patient Mode of Arrival: Wheelchair Duration: Since onset Prehospital treatment: None Quality: Aching Vomitus: Watery Stool: Normal Severity: Moderate Recent: None Recent Hx of: Abdominal Surgery Pain Location: Diffuse Associated sign and symptoms: Nausea, Vomiting, Abdominal Pain Past Medical History PAST MEDICAL HISTORY: Cancer, CVA, High Lipids, HTN, Kidney Stones, [place], Seizures, TIA Surgical History: CABG, Hernia Repair, Tonsillectomy Family History Family History: Reviewed,noncontributory to illness, Family hx of Kidney maira Social History Smoker: Non-Smoker Alcohol: Rarely Drugs: Denies Drug Use Lives In: Home Constitutional: denies: chills, diaphoresis, fatigue, fever, malaise, sweats, weakness, others EENTM: denies: blurred vision, double vision, ear bleeding, ear discharge, ear drainage, ear pain, ear ringing, eye pain, eye redness, hearing loss, mouth pain, mouth swelling, nasal discharge, nose bleeding, nose congestion, nose pain, photophobia, tearing, throat pain, throat swelling, voice changes, others Respiratory: denies: cough, hemoptysis, orthopnea, SOB at rest, shortness of breath, SOB with excertion, stridor, wheezing, others Cardiovascular: denies: chest pain, dizzy spells, diaphoresis, Dyspnea on exert ion, edema, irregular heart beat, left arm pain, lightheadedness, palpitations, PND, syncope, others Gastrointestinal: reports: abdominal pain, nausea, vomiting; denies: abdomen distended, blood streaked bowels, constipated, diarrhea, dysphagia, difficulty swallowing, hematemesis, melena, poor appetite, poor fluid intake, rectal bleeding, rectal pain, others Genitourinary: reports: flank pain; denies: burning, dysuria, frequency, hematuria, incontinence, penile discharge, penile sore, pain, testicle pain, t esticle swelling, urgency, others Neurological: denies: dizziness, fainting, headache, left sided numbness, left sided weakness, numbness, paresthesia, pre-existing deficit, right sided numbness, right sided weakness, seizure, speech problems, tingling, tremors, weakness, others Musculoskeletal: denies: back pain, gout, joint pain, joint swelling, muscle pain, muscle stiffness, neck pain, others Integumetry: denies: bruises, change in color, change in hair/nails, dryness, laceration, lesions, lumps, rash, wounds, others Allergic/Immunocompromised: denies: Difficulty Healing, Frequent Infections, Hives, Itching, others Hematologic/Lymphatic: denies: anemia, blood clots, easy bleeding, easy bruising, swollen glands, others Endocrine: denies: excessive hunger, excessive sweating, excessive thirst, excessive urination, flushing, intolerance to cold, intolerance to heat, unexplained weight gain, unexplained weight loss, others Psychiatric: denies: anxiety, bipolar disorder, depression, hopeless, panic disorder, schizophrenia, sleepless, suicidal, others Physical Exam General Appearance: No Apparent Distress, Normal HEENT: Normal ENT Inspection, Pharynx Normal, TMs Normal Neck: Full Range of Motion, Non-Tender, Normal, Normal Inspection Respiratory: Chest Non-Tender, Lungs Clear, No Accessory Muscle Use, No Respiratory Distress, Normal Breath Sounds Cardiovascular: No Edema, No JVD, No Murmur, No Gallop, Normal Peripheral Pulses, Regular Rate/Rhythm Breast Exam: Deferred Gastrointestinal: No Organomegaly, Non Tender, No Pulsatile Mass, Normal Bowel Sounds, Soft Genitalia: Deferred Pelvic: Deferred Rectal: Deferred Extremities: No calf tenderness, Normal capillary refill, Normal inspection, Normal range of motion, Non-tender, No pedal edema Musculoskeletal : Apperance: Normal Neurologic: Alert, clay roaster II-XII nml as Tested, No Motor Deficits, Normal Affect, Normal Mood, No Sensory Deficits Cerebellar Function: Normal Reflexes: Normal Skin: Dry, Normal Color, Warm Lymphatic: No Adenopathy Was a procedure done? Was a procedure done?: No GI differential Dx Differential Diagnosis: Constipation, Diverticular disease, Gastritis/PUD, Gastroenteritis, Hernia, Pancreatitis, Urinary Obstruction, UTI, Urolithiasis, Electrolyte Imbalance X-Ray, Labs, Meds, VS Vital Signs Date Time Temp Pulse Resp B/P (MAP) Pulse Ox O2 Delivery O2 Flow Rate FiO2 03/26/24 23:12 80 16 139/79 03/26/24 21:45 80 18 147/83 03/26/24 20:53 97.6 77 20 147/83 (104) 96 97.6 03/26/24 19:47 97.5 75 16 119/74 (89) 98 Lab Test 03/26/24 20:30 03/26/24 19:44 Range/Units Urine Color Yellow Yellow Urine Clarity Clear Clear Urine pH 5.0 5.0-9.0 Urine Specific [place] 1.021 1.001-1.035 Urine Protein Trace H Negative Urine Ketones Trace Negative Urine Blood Negative Negative /uL Urine Nitrite Negative Negative Urine Bilirubin Negative Negative Urine Urobilinogen Normal Negative mg/dL Urine Leukocyte Esterase Negative Negative /uL Urine RBC <1 0 - 3 /hpf Urine WBC 1 0 - 3 /hpf Urine Squamous Epithelial Cells Few <5 /hpf Urine Bacteria None seen None Seen /hpf Urine Mucus Few None Seen Urine Glucose Normal Normal mg/dL White Blood Count 5.5 4.4-10.8 10^3/uL Red Blood Count 5.21 4.5-5.90 10^6/uL Hemoglobin 14.2 13.5-17.5 g/dL Hematocrit 43.3 41.0-53.0 % Mean Corpuscular Volume 83.1 80.0-100.0 fL Mean Corpuscular Hemoglobin 27.3 L 28.0-32.0 pg Mean Corpuscular Hemoglobin Concent 32.8 32.0-36.0 g/dL Red Cell Distribution Width 16.1 H 11.8-14.3 % Platelet Count 225 140-450 10^3/uL Mean Platelet Volume 8.0 6.9-10.8 fL Neutrophils (%) (Auto) 57.2 37.0-80.0 % Lymphocytes (%) (Auto) 27.9 10.0-50.0 % Monocytes (%) (Auto) 12.8 H 0.0-12.0 % Eosinophils (%) (Auto) 1.6 0.0-7.0 % Basophils (%) (Auto) 0.5 0.0-2.0 % Neutrophils # (Auto) 3.1 1.6-8.6 10 ^3/uL Lymphocytes # (Auto) 1.5 0.4-5.4 10 ^3/uL Monocytes # (Auto) 0.7 0-1.3 10 ^3/uL Eosinophils # (Auto) 0.1 0-0.8 10 ^3/uL Basophils # (Auto) 0 0-0.2 10 ^3/uL Nucleated Red Blood Cells 0.4 % Sodium Level 135 L 136-145 mmol/L Potassium Level 4.0 3.5-5.1 mmol/L Chloride Level 100 98-107 mmol/L Carbon Dioxide Level 25 20-31 mmol/L Anion Gap 10 5-15 Blood Urea Nitrogen 21 9-23 mg/dL Creatinine 1.11 0.700-1.30 mg/dL Glomerular Filtration Rate Calc 66 >90 mL/min BUN/Creatinine Ratio 18.9 10.0-20.0 Serum Glucose 161 H 74-106 mg/dL Calcium Level 9.7 8.7-10.4 mg/dL Total Bilirubin 1.0 0.2-1.0 mg/dL Aspartate Amino Transferase (AST) 24 13-40 U/L Alanine Aminotransferase (ALT) 26 7-40 U/L Alkaline Phosphatase 113 46-116 U/L Total Protein 7.1 5.7-8.2 g/dL Albumin 4.6 3.2-4.8 g/dL Lipase 54 H 12-53 U/L Current Medications Medications (Trade) Dose Ordered Sig/Edin Route Start Time Stop Time Status Last Admin Sodium Chloride 1,000 ml @ 1,000 mls/hr Q1H ONCE IVB 03/26/24 19:30 03/26/24 20:29 DC 03/26/24 19:30 Morphine Sulfate 4 mg ONCE ONCE IV 03/26/24 20:00 03/26/24 20:01 DC 03/26/24 21:45 Ondansetron HCl (Zofran) 4 mg ONCE ONCE IV 03/26/24 20:00 03/26/24 20:01 DC 03/26/24 21:45 ORDERING PHYSICIAN: BEKA CASTRO MD PROCEDURE(s): ABPLIV - CT AB PEL WITH IV CON ONLY REASON: abd pain ORDER NUMBER(s): [id number], ACCESSION NUMBER(s): [id number] CLINICAL HISTORY: abd pain TECHNIQUE: CT of the abdomen and pelvis was performed with intravenous contrast. This exam was performed according to our departmental dose optimization program. Up-to-date CT equipment and radiation dose reduction techniques are utilized as appropriate. COMPARISON: CT CT AB PEL WITH IV CON ONLY on DOS: 01/29/24 FINDINGS: Lower Thorax: Linear bibasilar scarring and/or atelectasis. Mild elevation of the left hemidiaphragm. Wall thickening of the lower esophagus. Prior median sternotomy partially imaged. At least [id number] coronary artery calcifications partially imaged. Normal-sized heart. Liver and Biliary system: Very mild nodular contour of the liver. Major portal veins are patent. Normal-sized liver. Linear hypodense scarring in the right lobe of the liver is unchanged. Gallbladder is normal caliber. No biliary ductal dilatation. Spleen: Unremarkable. Adrenal Glands and Kidneys: Normal adrenal glands. Tiny nonobstructing bilateral renal calculi. There is scarring in the lower pole left kidney. There are bilateral renal cysts. There are left renal sinus cysts. No hydronephrosis. Pancreas and Retroperitoneum: Mildly atrophic pancreas. A few mildly prominent left retroperitoneal lymph nodes. Aorta and Major Vessels: Mild ectasia of the abdominal aorta. Aortoiliac vessels are patent containing [id number] mixed atherosclerotic plaque. Bowel, Mesentery and Peritoneal space: Normal caliber large bowel. Mild ascites. Disproportionate fluid distention of a left and central small bowel loop measuring up to 3.3 cm on series 2, image 39. . There Appears to be 2 segments of decompressed/ kinked small-bowel adjacent to each other in the left abdomen near a calcification on series 2, image 48. There is edema of the supplying mesentery of the dilated small bowel loops. There is mild ascites. The bowel loops proximal and distal to this segment is decompressed. There is mesh repair of the left anterior abdominal wall. There is no free air or drainable abscess. No pneumatosis intestinalis. Pelvis: Bilateral hip arthroplasties demonstrate hardware artifact which limited evaluation of the pelvis. Urinary bladder is mildly distended. No grossly enlarged pelvic lymph nodes. Abdominal wall and Osseous Structures: Bilateral hip arthroplasties in place. Chronic right inferior pubic ramus fracture deformity. There is bony demineralization. Moderate multilevel lower thoracic and lumbar spondylosis. No destructive osseous lesion. IMPRESSION: 1. Disproportionate fluid distention of a proximal to mid small bowel loop in the left and mid abdomen. There appears to be 2 segments of decompressed/ kinked small-bowel adjacent to each other in the left abdomen near a calcific ation in the mesentery. Concern for small bowel obstruction, which could be closed loop. 2. Edema of the supplying mesentery of the dilated small bowel loops and mild ascites. Developing ischemia not excluded. No free air or pneumatosis intestinalis. 3. Tiny nonobstructing bilateral renal calculi. 4. Mild wall thickening of the lower esophagus which could reflect esophagitis. Time of 1ST Reevaluation: 20:13 Reevaluation 1ST: Unchanged Time of 2ND Reevaluation: 23:16 Reevaluation 2ND: Unchanged Patient Education/Counseling: Diagnosis, Treatment Family Education/Counseling: No Family Present Departure 1 Departure Time of Disposition: 23:17 Impression: Primary Impression: SBO (small bowel obstruction) Disposition: ADMITTED INPATIENT Admit to: Med Surg Condition: Guarded Critical Care Note Critical Care Time?: Yes (35 min-critical care time only) Critical care comment: Total critical care time: Approximately 36 minutes Due to a high probability of clinically significant, life threatening deterioration, the patient required my highest level of preparedness to intervene emergently and I personally spent this critical care time directly and personally managing the patient. This critical care time included obtaining a history; examining the patient; pulse oximetry; ordering and review of studies; arranging urgent treatment with development of a management plan; evaluation of patient's response to treatment; frequent reassessment; and, discussions with other providers. This critical care time was performed to assess and manage the high probability of imminent, life-threatening deterioration that could result in multi-organ failure. It was exclusive of separately billable procedures and treating other patients. Stability Stability form required: No Heart Score Heart Score: Heart Score Response (Comments) Value History N/A 0 EKG N/A 0 Age N/A 0 Risk Factors N/A 0 Troponin N/A 0 Total 0 I personally scribed for BEKA CASTRO MD ([email or web address]) on 03/26/24 at 20:16. Electronically submitted by Rito Martinez ([email or web address]). I personally scribed for BEKA CASTRO MD ([email or web address]) on 03/26/24 at 23:15. Electronically submitted by Rito Martinez ([email or web address]). BEKA CASTRO MD Mar 26, 2024 20:16
[2024-03-26 20:21] LABS: Alanine Aminotransferase 26 U/L (7-40); Albumin 4.6 g/dL (3.2-4.8); Alkaline Phosphatase 113 U/L (46-116); Anion Gap 10 (5-15); Aspartate Aminotransferase 24 U/L (13-40); BUN/Creatinine Ratio 18.9 (10.0-20.0); Blood Urea Nitrogen 21 mg/dL (9-23); Calcium 9.7 mg/dL (8.7-10.4); Carbon Dioxide 25 mmol/L (20-31); Chloride 100 mmol/L (98-107); Total Protein 7.1 g/dL (5.7-8.2)
[2024-03-26 20:32] LABS: Urine Bacteria None Seen /hpf (None Seen)
[2024-03-26 21:02] LABS: Glucose 161 mg/dL (74-106); Lipase 54 U/L (12-53); Sodium 135 mmol/L (136-145)
[2024-03-26 21:04] LABS: Urine Blood Negative /uL (Negative); Urine Clarity Clear (Clear); Urine Color Yellow (Yellow); Urine Mucus FEW (None Seen); Urine Protein, UAD TRACE (Negative); Urine Specific Gravity 1.021 (1.001-1.035); Urine Squamous Epithelial Cell FEW /hpf (<5); Urine Urobilinogen Normal (Negative); Urine WBC 1 /hpf (0 - 3)
[2024-03-26] MEDS: MORPHINE SULFATE 4 MG/ML SYR/VIAL IV ONE (21:45)
[2024-03-26] MEDS: ONDANSETRON HCL 4 MG/2 ML VIAL IV ONE (21:45)
[2024-03-26] MEDS: IOHEXOL 300 MG/ML 100ML BOTTLE IJ ONE (22:28)
--- NOTE | 2024-03-26 23:12 | DVH ---
CLINICAL HISTORY: abd pain TECHNIQUE: CT of the abdomen and pelvis was performed with intravenous contrast. This exam was perfor med according to our departmental dose optimization program. Up-to-date CT equipment and radiation do se reduction techniques are utilized as appropriate. COMPARISON: CT CT AB PEL WITH IV CON ONLY on DOS: 01/29/24 FINDINGS: Lower Thorax: Linear bibasilar scarring and/or atelectasis. Mild elevation of the left hemidiaphragm. Wall thickening of the lower esophagus. Prior median sternotomy partially imaged. At least mild-to-m oderate coronary artery calcifications partially imaged. Normal-sized heart. Liver and Biliary system: Very mild nodular contour of the liver. Major portal veins are patent. Nor mal-sized liver. Linear hypodense scarring in the right lobe of the liver is unchanged. Gallbladder i s normal caliber. No biliary ductal dilatation. Spleen: Unremarkable. Adrenal Glands and Kidneys: Normal adrenal glands. Tiny nonobstructing bilateral renal calculi. There is scarring in the lower pole left kidney. There are bilateral renal cysts. There are left renal si nus cysts. No hydronephrosis. Pancreas and Retroperitoneum: Mildly atrophic pancreas. A few mildly prominent left retroperitoneal l ymph nodes. Aorta and Major Vessels: Mild ectasia of the abdominal aorta. Aortoiliac vessels are patent containi ng vctd-di-sbygyroc mixed atherosclerotic plaque. Bowel, Mesentery and Peritoneal space: Normal caliber large bowel. Mild ascites. Disproportionate flu id distention of a left and central small bowel loop measuring up to 3.3 cm on series 2, image 39. . There Appears to be 2 segments of decompressed/ kinked small-bowel adjacent to each other in the lef t abdomen near a calcification on series 2, image 48. There is edema of the supplying mesentery of th e dilated small bowel loops. There is mild ascites. The bowel loops proximal and distal to this segm ent is decompressed. There is mesh repair of the left anterior abdominal wall. There is no free air o r drainable abscess. No pneumatosis intestinalis. Pelvis: Bilateral hip arthroplasties demonstrate hardware artifact which limited evaluation of the pe lvis. Urinary bladder is mildly distended. No grossly enlarged pelvic lymph nodes. Abdominal wall and Osseous Structures: Bilateral hip arthroplasties in place. Chronic right inferior pubic ramus fracture deformity. There is bony demineralization. Moderate multilevel lower thoracic an d lumbar spondylosis. No destructive osseous lesion. IMPRESSION: 1. Disproportionate fluid distention of a proximal to mid small bowel loop in the left and mid abdome n. There appears to be 2 segments of decompressed/ kinked small-bowel adjacent to each other in the left abdomen near a calcification in the mesentery. Concern for small bowel obstruction, which could be closed loop. 2. Edema of the supplying mesentery of the dilated small bowel loops and mild ascites. Developing isc hemia not excluded. No free air or pneumatosis intestinalis. 3. Tiny nonobstructing bilateral renal calculi. 4. Mild wall thickening of the lower esophagus which could reflect esophagitis. Critical Result: Small-bowel obstruction, possible closed loop Awaiting call back from BEKA CASTRO at 03/26/2024 11:08 PM ..
[2024-03-27 01:43] LABS: Lactic Acid w/Reflex 2.3 mmol/L (0.4-2.0)
[2024-03-27] MEDS: MORPHINE SULFATE 4 MG/ML SYR/VIAL IV ONE (05:00)
[2024-03-27] MEDS: ONDANSETRON HCL 4 MG/2 ML VIAL IV ONE (05:01)
[2024-03-27 06:50] VITALS: PULSE 86; RESP 23; O2SAT 98
[2024-03-27 08:00] VITALS: PULSE 76; RESP 18; O2SAT 92
--- NOTE | 2024-03-27 08:43 | DVH ---
CHEST RADIOGRAPH Indication: NGT placement Technique: Single frontal view of the chest was obtained Comparison: XY CHEST PORTABLE on DOS: 01/29/24 FINDINGS: Lines and Tubes: There is an enteric catheter which courses below the left hemidiaphragm and terminat es in the region of the proximal stomach. Lungs: Left basilar opacity. Pleura: No effusion. No pneumothorax. Cardiomediastinal contours: Unremarkable Bones: No acute osseous abnormality. The patient is status post median sternotomy. IMPRESSION: 1. Enteric catheter terminates in the region of the proximal stomach. 2. Left basilar opacity.
[2024-03-27] MEDS: MORPHINE SULFATE INJ 2 MG/ml SYRG IV PRN (13:02)
--- NOTE | 2024-03-27 13:34 | DVHINCON2 ---
Date of service: Mar 27, 2024 Family History: Alcoholism G8 FATHER FH: chronic kidney disease G8 MOTHER Allergies: Coded Allergies: NO KNOWN ALLERGIES (Unverified , 12/10/23) Home Meds Active Scripts Docusate Sodium (Dulcolax Stool Softener) 100 Mg Cap, 100 MG PO BID for 3 Days, #6 CAP Prov:JAMIN BETH MD 10/01/23 Levetiracetam (KEPPRA TABLET) 500 Mg Tb, 500 MG PO BID, #120 TAB Prov:CORDELIA BARON MD 06/27/22 Finasteride (Finasteride) 5 Mg Tab, 1 TAB PO QPM, #90 TAB 1 Refill Prov:CORDELIA BARON MD 06/26/22 Reported Medications Aspirin (Aspirin Low Dose) 81 Mg Chw, 1 TAB PO DAILY for 90 Days, #90 01/12/24 Tamsulosin Hcl (Tamsulosin Hcl) 0.4 Mg Cap, 1 CAP PO DAILY for 90 Days, #90 01/12/24 Metoprolol Tartrate (Lopressor) 25 Mg Tb, 1 TAB PO BID for 30 Days, #60 0 Refills 01/12/24 Atorvastatin Calcium (Lipitor) 40 Mg Tab, 1 TAB PO DAILY for 90 Days, #90 01/12/24 Tramadol Hcl (Tramadol Hcl) 50 Mg Tab, 50 MG PO TID PRN for PAIN SCALE 1 THRU 6, MG 01/24/23 Clopidogrel Bisulfate (Plavix) 75 Mg Tab, 75 MG PO DAILY for CHEST PAIN 10/12/11 Current Medications Current Medications Medications (Trade) Dose Ordered Sig/Edin Route PRN Reason Start Time Stop Time Status Last Admin Morphine Sulfate 2 mg Q3HPRN PRN IV SEVERE PAIN (7-10 PAIN SCALE) 03/27/24 12:45 03/27/24 13:02 Vital Signs Vital Signs Date Time Temp Pulse Resp B/P (MAP) Pulse Ox O2 Delivery O2 Flow Rate FiO2 03/27/24 13:02 80 19 147/87 03/27/24 06:50 98 Room Air* 0 21 03/26/24 20:53 97.6 97.6 Labs/Diagnostic Data Labs Test 03/27/24 02:47 03/26/24 20:30 03/26/24 19:44 Range/Units Lactic Acid Level 2.0 0.4-2.0 mmol/L Urine Color Yellow Yellow Urine Clarity Clear Clear Urine pH 5.0 5.0-9.0 Urine Specific [place] 1.021 1.001-1.035 Urine Protein Trace H Negative Urine Ketones Trace Negative Urine Blood Negative Negative /uL Urine Nitrite Negative Negative Urine Bilirubin Negative Negative Urine Urobilinogen Normal Negative mg/dL Urine Leukocyte Esterase Negative Negative /uL Urine RBC <1 0 - 3 /hpf Urine WBC 1 0 - 3 /hpf Urine Squamous Epithelial Cells Few <5 /hpf Urine Bacteria None seen None Seen /hpf Urine Mucus Few None Seen Urine Glucose Normal Normal mg/dL White Blood Count 5.5 4.4-10.8 10^3/uL Red Blood Count 5.21 4.5-5.90 10^6/uL Hemoglobin 14.2 13.5-17.5 g/dL Hematocrit 43.3 41.0-53.0 % Mean Corpuscular Volume 83.1 80.0-100.0 fL Mean Corpuscular Hemoglobin 27.3 L 28.0-32.0 pg Mean Corpuscular Hemoglobin Concent 32.8 32.0-36.0 g/dL Red Cell Distribution Width 16.1 H 11.8-14.3 % Platelet Count 225 140-450 10^3/uL Mean Platelet Volume 8.0 6.9-10.8 fL Neutrophils (%) (Auto) 57.2 37.0-80.0 % Lymphocytes (%) (Auto) 27.9 10.0-50.0 % Monocytes (%) (Auto) 12.8 H 0.0-12.0 % Eosinophils (%) (Auto) 1.6 0.0-7.0 % Basophils (%) (Auto) 0.5 0.0-2.0 % Neutrophils # (Auto) 3.1 1.6-8.6 10 ^3/uL Lymphocytes # (Auto) 1.5 0.4-5.4 10 ^3/uL Monocytes # (Auto) 0.7 0-1.3 10 ^3/uL Eosinophils # (Auto) 0.1 0-0.8 10 ^3/uL Basophils # (Auto) 0 0-0.2 10 ^3/uL Nucleated Red Blood Cells 0.4 % Sodium Level 135 L 136-145 mmol/L Potassium Level 4.0 3.5-5.1 mmol/L Chloride Level 100 98-107 mmol/L Carbon Dioxide Level 25 20-31 mmol/L Anion Gap 10 5-15 Blood Urea Nitrogen 21 9-23 mg/dL Creatinine 1.11 0.700-1.30 mg/dL Glomerular Filtration Rate Calc 66 >90 mL/min BUN/Creatinine Ratio 18.9 10.0-20.0 Serum Glucose 161 H 74-106 mg/dL Calcium Level 9.7 8.7-10.4 mg/dL Total Bilirubin 1.0 0.2-1.0 mg/dL Aspartate Amino Transferase (AST) 24 13-40 U/L Alanine Aminotransferase (ALT) 26 7-40 U/L Alkaline Phosphatase 113 46-116 U/L Total Protein 7.1 5.7-8.2 g/dL Albumin 4.6 3.2-4.8 g/dL Lipase 54 H 12-53 U/L Assessment [id number] R/O SBO, ILEUS NO BM FLATUS+ KEEP NPO NG CLOSE OBSERVATION CONSIDER EMERGENT SURGERY BASED ON ONGOING EVAL CARDIAC CLEARANCE HIGH RISK FOR SURGERY Plan discussed with: Other RUFUS CHOE MD Mar 27, 2024 13:33
[2024-03-27] MEDS ORDERED: NITROGLYCERIN 0.4 MG SL TAB SL PRN (16:00)
[2024-03-27] MEDS: SODIUM CHLORIDE 0.9% 1,000 ML IV SCH (16:00)
[2024-03-27] MEDS ORDERED: MORPHINE SULFATE INJ 2 MG/ml SYRG IV PRN ×2 (16:00)
--- NOTE | 2024-03-27 16:28 | DVHHP2 ---
History of Present Illness Reason for Visit: No pain nausea vomiting for 1 day History of Present Illness 83-year-old male with known history of coronary artery disease status post one- vessel CABG, previous history of recurrent abdominal hernia and inguinal hernia surgery x4, seizure disorder who initially presented to the hospital with abdominal pain nausea vomiting found to have small-bowel obstruction. Surgical evaluation was done by Dr. French there is no evidence of any ischemia clinically. Medicine team was asked to admit the patient. Patient denies any fever chills, complaining of abdominal pain. Patient and patient's stated morphine is not working. Patient stated that he has BM and passing flatus. 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 Allergies: Coded Allergies: NO KNOWN ALLERGIES (Unverified , 12/10/23) Medications Current Medications Medications Dose Ordered Sig/Edin Route Start Time Stop Time Status Last Admin Dose Admin Morphine Sulfate 2 mg Q3HPRN PRN IV 03/27/24 12:45 03/27/24 15:36 2 MG Sodium Chloride 1,000 ml @ 60 mls/hr [id number] IV 03/27/24 16:00 UNV Ondansetron HCl 4 mg Q4HP PRN IV 03/27/24 16:00 UNV Enoxaparin Sodium 40 mg DAILY SC 03/28/24 10:00 UNV Morphine Sulfate 2 mg Q4HPRN PRN IV 03/27/24 16:00 UNV Nitroglycerin 0.4 mg Q5MINP PRN SL 03/27/24 16:00 UNV Morphine Sulfate 2 mg Q30M PRN IV 03/27/24 16:00 UNV Piperacillin Sod/ Tazobactam Sod 100 ml @ 25 mls/hr Q6HR IV 03/27/24 18:00 UNV Exam Vital Signs Vital Signs Date Time Temp Pulse Resp B/P (MAP) Pulse Ox O2 Delivery O2 Flow Rate FiO2 03/27/24 16:06 85 16 157/90 03/27/24 14:00 98 03/27/24 08:00 97.7 97.7 03/27/24 08:00 Room Air* 0 21 Exam HEENT pupils are reactive Neck is supple CV is S1-S2 regular rate and rhythm Respiratory diminished BS on bases GI sluggish bowel sounds , positive distention positive tenderness with minimal guarding no rigidity Extremity no edema 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 Labs/Xrays Labs Test 03/27/24 02:47 03/26/24 20:30 03/26/24 19:44 Range/Units Lactic Acid Level 2.0 0.4-2.0 mmol/L Urine Color Yellow Yellow Urine Clarity Clear Clear Urine pH 5.0 5.0-9.0 Urine Specific [place] 1.021 1.001-1.035 Urine Protein Trace H Negative Urine Ketones Trace Negative Urine Blood Negative Negative /uL Urine Nitrite Negative Negative Urine Bilirubin Negative Negative Urine Urobilinogen Normal Negative mg/dL Urine Leukocyte Esterase Negative Negative /uL Urine RBC <1 0 - 3 /hpf Urine WBC 1 0 - 3 /hpf Urine Squamous Epithelial Cells Few <5 /hpf Urine Bacteria None seen None Seen /hpf Urine Mucus Few None Seen Urine Glucose Normal Normal mg/dL White Blood Count 5.5 4.4-10.8 10^3/uL Red Blood Count 5.21 4.5-5.90 10^6/uL Hemoglobin 14.2 13.5-17.5 g/dL Hematocrit 43.3 41.0-53.0 % Mean Corpuscular Volume 83.1 80.0-100.0 fL Mean Corpuscular Hemoglobin 27.3 L 28.0-32.0 pg Mean Corpuscular Hemoglobin Concent 32.8 32.0-36.0 g/dL Red Cell Distribution Width 16.1 H 11.8-14.3 % Platelet Count 225 140-450 10^3/uL Mean Platelet Volume 8.0 6.9-10.8 fL Neutrophils (%) (Auto) 57.2 37.0-80.0 % Lymphocytes (%) (Auto) 27.9 10.0-50.0 % Monocytes (%) (Auto) 12.8 H 0.0-12.0 % Eosinophils (%) (Auto) 1.6 0.0-7.0 % Basophils (%) (Auto) 0.5 0.0-2.0 % Neutrophils # (Auto) 3.1 1.6-8.6 10 ^3/uL Lymphocytes # (Auto) 1.5 0.4-5.4 10 ^3/uL Monocytes # (Auto) 0.7 0-1.3 10 ^3/uL Eosinophils # (Auto) 0.1 0-0.8 10 ^3/uL Basophils # (Auto) 0 0-0.2 10 ^3/uL Nucleated Red Blood Cells 0.4 % Sodium Level 135 L 136-145 mmol/L Potassium Level 4.0 3.5-5.1 mmol/L Chloride Level 100 98-107 mmol/L Carbon Dioxide Level 25 20-31 mmol/L Anion Gap 10 5-15 Blood Urea Nitrogen 21 9-23 mg/dL Creatinine 1.11 0.700-1.30 mg/dL Glomerular Filtration Rate Calc 66 >90 mL/min BUN/Creatinine Ratio 18.9 10.0-20.0 Serum Glucose 161 H 74-106 mg/dL Calcium Level 9.7 8.7-10.4 mg/dL Total Bilirubin 1.0 0.2-1.0 mg/dL Aspartate Amino Transferase (AST) 24 13-40 U/L Alanine Aminotransferase (ALT) 26 7-40 U/L Alkaline Phosphatase 113 46-116 U/L Total Protein 7.1 5.7-8.2 g/dL Albumin 4.6 3.2-4.8 g/dL Lipase 54 H 12-53 U/L Assessment/Plan Assessment/Plan 83-year-old male with known history of coronary artery disease status post one- vessel CABG, seizure disorder, previous history of multiple inguinal hernia surgery presented to the hospital with the abdominal pain nausea vomiting found to have 1. Small bowel obstruction 2. Abdominal pain nausea vomiting discontinue 1. 3. Coronary artery disease status post one-vessel CABG 4. Seizure disorder 5. Hypertension -NPO, NG tube to low wall suctioning, broad-spectrum IV antibiotics, IV fluids -cardiac evaluation for preop for possibly surgical intervention for SBO. -general surgical consultation appreciated. Plan discussed with: Patient, Spouse My Orders Orders - CHEIKH GUIDRY MD Procedure Category Date Status Time Morphine Sulfate PHA 03/27/24 In Process Injection 12:45 Admit ADMIT 03/27/24 Transmitted 15:57 Code Status CODE 03/27/24 Transmitted 15:57 Sodium Chloride 0.9% PHA 03/27/24 Logged 16:00 Ondansetron Hcl PHA 03/27/24 Logged (Zofran) 16:00 Enoxaparin Sodium PHA 03/28/24 Logged (Lovenox) 10:00 Complete Blood Count LAB 03/28/24 Verified 04:00 Comprehensive LAB 03/28/24 Verified Metabolic Panel 04:00 Npo (Nothing By DIET 03/27/24 Transmitted Mouth) Diet Dinner Condition: Stable [facility] 03/27/24 In Process 15:57 Morphine Sulfate [facility] 03/27/24 Logged Injection 16:00 Nitroglycerin [facility] 03/27/24 Logged Sublingual (Ntrostat 16:00 Morphine Sulfate [facility] 03/27/24 Logged Injection 16:00 Notify Of Changes [facility] 03/27/24 In Process From Base 15:57 Hand Outside Cutter For [facility] 03/27/24 In Process 24 Hours 15:57 Emergency Dysrhythmia [facility] 03/27/24 In Process Protocol 15:57 Rhythm Strips Once [facility] 03/27/24 In Process Every Shift 15:57 Oxygen By Nasal RT 03/27/24 Transmitted Cannula 15:57 Piperacillin-Tazob [facility] 03/27/24 Logged 3.375gm (Zosyn 3.375g 18:00 Levetiracetam 500 [facility] 03/27/24 Logged Mg/100ml (Levetiraceta 22:00 Date of Service: Mar 27, 2024 Billing Provider: CHEIKH GUIDRY MD Common Visit Codes: NOT BILLABLE CHEIKH GUIDRY MD Mar 27, 2024 16:28
[2024-03-27] MEDS ORDERED: ONDANSETRON HCL 4 MG/2 ML VIAL IV PRN (16:30)
--- NOTE | 2024-03-27 16:55 | DVHINCON2 ---
Date Seen: Mar 27, [address] French Reason for Consultation Cardiac clearance requested History of Present Illness 83-year-old gentleman well known to this institution. Comes in with a history of abdominal pain. He was found to have what appears to be a small bowel obstruction. Given features that were notably abnormal he has been also being ruled out for mesenteric ischemia. Possible emergency surgery will be performed for which cardiac evaluation was requested.He denies any history of chest pain or shortness of breath. Past Medical History He has past medical history is clearly delineated. He is status post coronary bypass grafting of a single-vessel back in November. He was transferred to [place] after a failed PCI to the LAD. He also has a past medical history of hypertension hyperlipidemia history of seizure disorder. History of previous hernia repair.No recent episodes of chest pain angina or congestive heart failure Past Surgical History Hernia repair. Bypass surgery. Family History: Alcoholism G8 FATHER FH: chronic kidney disease G8 MOTHER Allergies: Coded Allergies: NO KNOWN ALLERGIES (Unverified , 12/10/23) Home Meds Active Scripts Docusate Sodium (Dulcolax Stool Softener) 100 Mg Cap, 100 MG PO BID for 3 Days, #6 CAP Prov:JAMIN BETH MD 10/01/23 Levetiracetam (KEPPRA TABLET) 500 Mg Tb, 500 MG PO BID, #120 TAB Prov:CORDELIA BARON MD 06/27/22 Finasteride (Finasteride) 5 Mg Tab, 1 TAB PO QPM, #90 TAB 1 Refill Prov:CORDELIA BARON MD 06/26/22 Reported Medications Aspirin (Aspirin Low Dose) 81 Mg Chw, 1 TAB PO DAILY for 90 Days, #90 01/12/24 Tamsulosin Hcl (Tamsulosin Hcl) 0.4 Mg Cap, 1 CAP PO DAILY for 90 Days, #90 01/12/24 Metoprolol Tartrate (Lopressor) 25 Mg Tb, 1 TAB PO BID for 30 Days, #60 0 Refills 01/12/24 Atorvastatin Calcium (Lipitor) 40 Mg Tab, 1 TAB PO DAILY for 90 Days, #90 01/12/24 Tramadol Hcl (Tramadol Hcl) 50 Mg Tab, 50 MG PO TID PRN for PAIN SCALE 1 THRU 6, MG 01/24/23 Clopidogrel Bisulfate (Plavix) 75 Mg Tab, 75 MG PO DAILY for CHEST PAIN 10/12/11 Current Medications Current Medications Medications (Trade) Dose Ordered Sig/Edin Route PRN Reason Start Time Stop Time Status Last Admin Morphine Sulfate 2 mg Q3HPRN PRN IV SEVERE PAIN (7-10 PAIN SCALE) 03/27/24 12:45 03/27/24 16:28 DC 03/27/24 15:36 Sodium Chloride 1,000 ml @ 60 mls/hr [id number] IV 03/27/24 16:00 UNV Ondansetron HCl (Zofran) 4 mg Q4HP PRN IV NAUSEA / VOMITING 03/27/24 16:00 UNV Enoxaparin Sodium (Lovenox) 40 mg DAILY SC 03/28/24 10:00 UNV Morphine Sulfate 2 mg Q4HPRN PRN IV SEVERE PAIN (7-10 PAIN SCALE) 03/27/24 16:00 UNV Nitroglycerin (Ntrostat Sublingual) 0.4 mg Q5MINP PRN SL FOR CHEST PAIN 03/27/24 16:00 UNV Morphine Sulfate 2 mg Q30M PRN IV FOR CHEST PAIN 03/27/24 16:00 UNV Piperacillin Sod/ Tazobactam Sod 100 ml @ 25 mls/hr Q6HR IV 03/27/24 18:00 UNV Levetiracetam 100 ml @ 400 mls/hr BID IV 03/27/24 22:00 UNV Hydromorphone HCl (Dilaudid Injection) 0.25 mg Q4HPRN PRN IV SEVERE PAIN (7-10 PAIN SCALE) 03/27/24 16:30 UNV Ondansetron HCl (Zofran) 4 mg Q4HPRN PRN IV NAUSEA / VOMITING 03/27/24 16:30 UNV Review of Systems No constitutional symptoms of fevers chills or weight loss. Cardiac and respiratory as noted above. ENT with a noted history of previous strokes and seizure disorders. GI negative. Musculoskeletal endocrine hematologic and oncologic negative. Dermatologic negative. Vital Signs Vital Signs Date Time Temp Pulse Resp B/P (MAP) Pulse Ox O2 Delivery O2 Flow Rate FiO2 03/27/24 16:06 85 16 157/90 03/27/24 14:00 98 03/27/24 08:00 97.7 97.7 03/27/24 08:00 Room Air* 0 21 Physical Exam Vital signs are as noted. On physical examination he is awake and responsive no acute distress. HEENT examination is otherwise unremarkable orally well hydrated. No jugular distention no bruits. Lungs reveal good air entry no rales or rhonchi. Heart exam reveals regular S1-S2 soft S4. Abdominal examination reveals a tender abdomen. Diminished bowel sounds. Extremities reveal adequate perfusion without clubbing cyanosis no edema. Neurologically intact. Integumentary is otherwise within normal limits. Labs/Diagnostic Data Labs Test 03/27/24 02:47 03/26/24 20:30 03/26/24 19:44 Range/Units Lactic Acid Level 2.0 0.4-2.0 mmol/L Urine Color Yellow Yellow Urine Clarity Clear Clear Urine pH 5.0 5.0-9.0 Urine Specific [place] 1.021 1.001-1.035 Urine Protein Trace H Negative Urine Ketones Trace Negative Urine Blood Negative Negative /uL Urine Nitrite Negative Negative Urine Bilirubin Negative Negative Urine Urobilinogen Normal Negative mg/dL Urine Leukocyte Esterase Negative Negative /uL Urine RBC <1 0 - 3 /hpf Urine WBC 1 0 - 3 /hpf Urine Squamous Epithelial Cells Few <5 /hpf Urine Bacteria None seen None Seen /hpf Urine Mucus Few None Seen Urine Glucose Normal Normal mg/dL White Blood Count 5.5 4.4-10.8 10^3/uL Red Blood Count 5.21 4.5-5.90 10^6/uL Hemoglobin 14.2 13.5-17.5 g/dL Hematocrit 43.3 41.0-53.0 % Mean Corpuscular Volume 83.1 80.0-100.0 fL Mean Corpuscular Hemoglobin 27.3 L 28.0-32.0 pg Mean Corpuscular Hemoglobin Concent 32.8 32.0-36.0 g/dL Red Cell Distribution Width 16.1 H 11.8-14.3 % Platelet Count 225 140-450 10^3/uL Mean Platelet Volume 8.0 6.9-10.8 fL Neutrophils (%) (Auto) 57.2 37.0-80.0 % Lymphocytes (%) (Auto) 27.9 10.0-50.0 % Monocytes (%) (Auto) 12.8 H 0.0-12.0 % Eosinophils (%) (Auto) 1.6 0.0-7.0 % Basophils (%) (Auto) 0.5 0.0-2.0 % Neutrophils # (Auto) 3.1 1.6-8.6 10 ^3/uL Lymphocytes # (Auto) 1.5 0.4-5.4 10 ^3/uL Monocytes # (Auto) 0.7 0-1.3 10 ^3/uL Eosinophils # (Auto) 0.1 0-0.8 10 ^3/uL Basophils # (Auto) 0 0-0.2 10 ^3/uL Nucleated Red Blood Cells 0.4 % Sodium Level 135 L 136-145 mmol/L Potassium Level 4.0 3.5-5.1 mmol/L Chloride Level 100 98-107 mmol/L Carbon Dioxide Level 25 20-31 mmol/L Anion Gap 10 5-15 Blood Urea Nitrogen 21 9-23 mg/dL Creatinine 1.11 0.700-1.30 mg/dL Glomerular Filtration Rate Calc 66 >90 mL/min BUN/Creatinine Ratio 18.9 10.0-20.0 Serum Glucose 161 H 74-106 mg/dL Calcium Level 9.7 8.7-10.4 mg/dL Total Bilirubin 1.0 0.2-1.0 mg/dL Aspartate Amino Transferase (AST) 24 13-40 U/L Alanine Aminotransferase (ALT) 26 7-40 U/L Alkaline Phosphatase 113 46-116 U/L Total Protein 7.1 5.7-8.2 g/dL Albumin 4.6 3.2-4.8 g/dL Lipase 54 H 12-53 U/L CT scans already delineated reveal thickening of the mesentery suggestive of possible ischemia with dilated loops of bowel. EKG shows sinus rhythm with nonspecific changes. Recent echocardiogram shows normal LV function with moderate aortic and mitral insufficiency. No evidence for heart failure at this time. Assessment Small-bowel obstruction. Rule out ischemic bowel. Coronary artery disease status post coronary bypass grafting. Hyperlipidemia. History of seizure disorder. History of stroke. Plan/Recommendation Given his history of asymptomatic cardiac status without angina congestive heart failure and/or progression of CAD status post recent coronary bypass grafting of a single-vessel consisting of a left internal mammary artery to the LAD, he should be well protected from a cardiac standpoint. Monitor perioperatively his blood pressure and fluid status. patient appears to be at least at moderate risk For surgery given his history of CAD and current general condition albeit left ventricular function is normal.Under the circumstances I would suggest proceeding with surgery as deemed necessary by Gastroenterology for the treatment of small-bowel obstruction/ischemic bowel. Thank you for the opportunity of evaluating this patient I will be glad to follow along with you. Plan discussed with: Patient, Spouse Date of Service: Mar 27, 2024 Billing Provider: RACQUEL DIAZ Sr., MD Cardiology Common Codes: [id number] INP/OBS CARE (High) RACQUEL DIAZ Sr., MD Mar 27, 2024 16:55
[2024-03-27] MEDS: ONDANSETRON HCL 4 MG/2 ML VIAL IV PRN (17:23)
[2024-03-27] MEDS: HYDROMORPHONE HCL 1 MG/ML INJ IV PRN (17:24)
[2024-03-27] MEDS: PIPERACILLIN-TAZOB 3.375GM 100 ML IV ONE (17:55)
[2024-03-27 19:30] VITALS: PULSE 86; RESP 17; O2SAT 97
--- NOTE | 2024-03-27 19:58 | DVHINCON2 ---
DATE OF CONSULTATION: 03/27/2024 HISTORY OF PRESENT ILLNESS: This patient is 83 years old, unable to give adequate history. He is unable to remember his issues, but the main thing is he is complaining of abdominal pain that is ongoing. It was very sharp yesterday, he came to the hospital and being admitted for observation. He also had nausea, vomiting. No hematemesis or melena. No bleeding per rectum. PAST MEDICAL HISTORY: Significant for constipation. Also includes cancer, CEA, high lipids, hypertension, kidney stones, history of DE, seizures, TIA. PAST SURGICAL HISTORY: Significant for abdominal hernia surgery. Details are not clear and he does not remember where it was done, and he also has had maybe a knee surgery done in the past. Also includes CABG and as I mentioned, hernia repair, and tonsillectomy. PHYSICAL EXAMINATION: VITAL SIGNS: Currently, he is afebrile with stable signs. HEENT: With no evidence of pallor, cyanosis, or jaundice. NECK: Supple, nontender with no thyromegaly, lymphadenopathy. CHEST AND LUNGS: Clear. HEART: Within normal limits. ABDOMEN: Soft, but tender and difficult to evaluate because of his clinical condition, but apparently there is no rebound. NEUROLOGIC: Not assessed. EXTREMITIES: Unremarkable. CLINICAL IMPRESSION: Rule out bowel obstruction. CAT scan is suggesting a small-bowel obstruction and no free air or pneumatosis is noticed and clinical impression is possibly secondary to his previous surgeries, but the etiology is not clear. PLAN: Will be to keep him n.p.o., place him on NG to low continuous suction, close observation, and consider cardiac clearance in case surgery is indicated emergently based upon ongoing evaluation. MD GILDARDO Rios/JEAN-PAUL/PADILLA TID: [id number] RECEIPT: [id number] cc: Tee Roy MD
[2024-03-27] MEDS: levETIRAcetam 500 mg/100ml 100 ML IV SCH (21:43)
[2024-03-28] VITALS (8 sets, daily range): BP systolic 128–174; BP diastolic 81–96; PULSE 87–107; RESP 16–22; TEMP 97.5–98.5; O2SAT 92–97
[2024-03-28] MEDS: PIPERACILLIN-TAZOB 3.375GM 100 ML IV SCH (00:10)
[2024-03-28 06:57] LABS: Basophils # (auto) 0 10 ^3/uL (0-0.2); Eosinophils # (auto) 0 10 ^3/uL (0-0.8); Hemoglobin 13.9 g/dL (13.5-17.5); Mean Corpuscular Hemoglobin 26.6 pg (28.0-32.0); Mean Corpuscular Volume 82.5 fL (80.0-100.0); Neutrophils # (auto) 4.3 10 ^3/uL (1.6-8.6); Platelet Count (auto) 236 10^3/uL (140-450)
[2024-03-28 06:59] LABS: Basophils % (auto) 0.4 % (0.0-2.0); Hematocrit 43.2 % (41.0-53.0); Lymphocytes # (auto) 0.8 10 ^3/uL (0.4-5.4); Lymphocytes % (auto) 12.7 % (10.0-50.0); Mean Corpuscular Hgb Conc. 32.3 g/dL (32.0-36.0); Monocytes # (auto) 1.1 10 ^3/uL (0-1.3); Monocytes % (auto) 17.7 % (0.0-12.0); Neutrophils % (auto) 69.2 % (37.0-80.0); Red Blood Cells 5.23 10^6/uL (4.5-5.90); Red Cell Distribution Width 15.6 % (11.8-14.3); White Blood Cell 6.2 10^3/uL (4.4-10.8)
[2024-03-28 07:11] LABS: Alanine Aminotransferase 19 U/L (7-40); Albumin 4.4 g/dL (3.2-4.8); Alkaline Phosphatase 91 U/L (46-116); Anion Gap 11 (5-15); Aspartate Aminotransferase 19 U/L (13-40); BUN/Creatinine Ratio 16.8 (10.0-20.0); Bilirubin, Total 1.1 mg/dL (0.2-1.0); Blood Urea Nitrogen 20 mg/dL (9-23); Calcium 9.6 mg/dL (8.7-10.4); Carbon Dioxide 23 mmol/L (20-31); Chloride 104 mmol/L (98-107); Sodium 138 mmol/L (136-145); Total Protein 6.8 g/dL (5.7-8.2)
[2024-03-28 07:35] LABS: Glucose 188 mg/dL (74-106)
[2024-03-28] MEDS: ENOXAPARIN SOD 40 MG/0.4 ML SYRINGE SC SCH (11:07)
--- NOTE | 2024-03-28 13:54 | DVHPN2 ---
Progress Note Date Seen: Mar 28, 2024 Medical Necessity Reason Pt with a Central, PICC or Fol: No Objective vital signs Vital Sign Date Time Temp Pulse Resp B/P (MAP) Pulse Ox O2 Delivery O2 Flow Rate FiO2 03/28/24 13:05 98 19 134/84 03/28/24 09:00 98.4 96 98.4 03/28/24 08:00 Room Air* 0 96 21 Total Intake and Output 03/27/24 03/27/24 03/28/24 15:00 23:00 07:00 Intake Total 100 ml Output Total 600 ml 375 ml Balance -600 ml -275 ml medications Current Medications Medications Dose Ordered Sig/Edin Route Start Time Stop Time Status Last Admin Dose Admin Sodium Chloride 1,000 ml @ 60 mls/hr [id number] IV 03/27/24 16:00 03/27/24 16:00 60 MLS/HR Ondansetron HCl 4 mg Q4HP PRN IV 03/27/24 16:00 03/28/24 07:32 4 MG Enoxaparin Sodium 40 mg DAILY SC 03/28/24 10:00 03/28/24 11:07 40 MG Nitroglycerin 0.4 mg Q5MINP PRN SL 03/27/24 16:00 Piperacillin Sod/ Tazobactam Sod 100 ml @ 25 mls/hr Q8H IV 03/28/24 00:00 03/28/24 00:10 25 MLS/HR Levetiracetam 100 ml @ 400 mls/hr BID IV 03/27/24 22:00 03/28/24 11:09 400 MLS/HR Hydromorphone HCl 0.25 mg Q4HPRN PRN IV 03/27/24 16:45 03/28/24 13:05 0.25 MG Ondansetron HCl 4 mg Q4HPRN PRN IV 03/27/24 16:30 UNV laboratory and microbiology Laboratory Tests 03/28/24 06:00 Test 03/28/24 06:00 Range/Units Serum Glucose 188 H 74-106 mg/dL Problem List/Assessment/Plan Problem List/Assessment/Plan AFEBRILE VSS ABD SOFT LESS DISTENDED, LESS TENDER NO BM FLATUS + WBC WNL LACTATE DOWN PT PULLED NG TUBE REFUSING TO HAVE IT PUT BACK IN GASTROGRAFIN STUDY SMALL BOWEL FOLLOW MAT TO DETERMINE THE NEED FOR SURGERY CLEARED BY CARDIOLOGY FAMILY AND NURSE AT BEDSIDE Plan discussed with: Patient RUFUS CHOE MD Mar 28, 2024 13:54
--- NOTE | 2024-03-28 15:09 | DVH ---
Procedure: XY KUB ABDOMEN SINGLE VIEW Study Date and Requested Time: 03/28/2024 02:45 PM History: SBO Technique: 2 views of the abdomen pelvis available for evaluation. Comparison: XY KUB ABDOMEN SINGLE VIEW on DOS: 10/01/23 Findings/ Impression: Gas-filled distended small bowel loops measuring up to 5 cm. Correlate for bowel obstruction /ileus. No abnormal calcifications are noted. Surgical clips are noted over the left upper abdominal quadrant with postsurgical changes of hernia r epair overlying the left pelvis. Interstitial prominence of the lung bases. Partially visualized midline sternotomy wires with surgic al clips consistent with prior history of CABG. Moderate to severe degenerative changes of the lumbar spine.
--- NOTE | 2024-03-28 16:41 | DVHPN2 ---
Subjective Overnight events noted. Patient's NG tube is out. 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 Medications Current Medications Medications Dose Ordered Sig/Edin Route Start Time Stop Time Status Last Admin Dose Admin Sodium Chloride 1,000 ml @ 60 mls/hr [id number] IV 03/27/24 16:00 03/27/24 16:00 60 MLS/HR Ondansetron HCl 4 mg Q4HP PRN IV 03/27/24 16:00 03/28/24 07:32 4 MG Enoxaparin Sodium 40 mg DAILY SC 03/28/24 10:00 03/28/24 11:07 40 MG Nitroglycerin 0.4 mg Q5MINP PRN SL 03/27/24 16:00 Piperacillin Sod/ Tazobactam Sod 100 ml @ 25 mls/hr Q8H IV 03/28/24 00:00 03/28/24 00:10 25 MLS/HR Levetiracetam 100 ml @ 400 mls/hr BID IV 03/27/24 22:00 03/28/24 11:09 400 MLS/HR Hydromorphone HCl 0.25 mg Q4HPRN PRN IV 03/27/24 16:45 03/28/24 13:05 0.25 MG Ondansetron HCl 4 mg Q4HPRN PRN IV 03/27/24 16:30 UNV Laboratory Results Laboratory Tests 03/28/24 06:00 Chemistry Test 03/28/24 06:00 Albumin 4.4 g/dL (3.2-4.8) Calcium Level 9.6 mg/dL (8.7-10.4) Total Protein 6.8 g/dL (5.7-8.2) LFT Test 03/28/24 06:00 Alanine Aminotransferase (ALT) 19 U/L (7-40) Alkaline Phosphatase 91 U/L (46-116) Aspartate Amino Transferase (AST) 19 U/L (13-40) Total Bilirubin 1.1 mg/dL (0.2-1.0) H Urinalysis Test 03/26/24 20:30 Urine Color Yellow (Yellow) Urine Clarity Clear (Clear) Urine pH 5.0 (5.0-9.0) Urine Specific [place] 1.021 (1.001-1.035) Urine Protein Trace (Negative) H Urine Ketones Trace (Negative) Urine Blood Negative /uL (Negative) Urine Nitrite Negative (Negative) Urine Bilirubin Negative (Negative) Urine Urobilinogen Normal mg/dL (Negative) Urine Leukocyte Esterase Negative /uL (Negative) Urine RBC <1 /hpf (0 - 3) Urine WBC 1 /hpf (0 - 3) Urine Squamous Epithelial Cells Few /hpf (<5) Urine Bacteria None seen /hpf (None Seen) Urine Mucus Few (None Seen) Urine Glucose Normal mg/dL (Normal) Assessment/Plan Assessment/Plan 83-year-old male with known history of coronary artery disease status post one- vessel CABG, seizure disorder, previous history of multiple inguinal hernia surgery presented to the hospital with the abdominal pain nausea vomiting found to have 1. Small bowel obstruction 2. Abdominal pain nausea vomiting discontinue 1. 3. Coronary artery disease status post one-vessel CABG 4. Seizure disorder 5. Hypertension -NPO, NG tube to low wall suctioning, broad-spectrum IV antibiotics, IV fluids -cardiac evaluation for preop for possibly surgical intervention for SBO. -general surgical consultation appreciated. Plan discussed with: Patient, Other Date of Service: Mar 28, 2024 Billing Provider: CHEIKH GUIDRY MD Common Visit Codes: NOT BILLABLE CHEIKH GUIDRY MD Mar 28, 2024 16:41
[2024-03-29] VITALS (58 sets, daily range): BP systolic 80–209; BP diastolic 49–98; PULSE 80–95; RESP 15–22; TEMP 97.6–98.9; O2SAT 92–96
[2024-03-29] MEDS ORDERED: DexAMETHasone SOD PHOS 10MG/1ML VIAL INJ ONE (07:28)
[2024-03-29] MEDS ORDERED: fentaNYL CITRATE 100 MCG/2 ML VL ONE (07:28)
[2024-03-29] MEDS ORDERED: MIDAZOLAM HCL 2MG/2ML 2ml VIAL (1mg/ml) ONE (07:28)
[2024-03-29] MEDS ORDERED: GLYCOPYRROLATE 0.2 MG/ML 1ML VIAL ONE (07:28)
[2024-03-29] MEDS ORDERED: ePHEDrine SULFATE 50 MG/ML AMP ONE (07:28)
[2024-03-29] MEDS ORDERED: ROCURONIUM 10MG/ML 10ML VIAL IV ONE (07:28)
[2024-03-29] MEDS ORDERED: LIDOCAINE 2% (LOCAL ANESTH.) PF 5ml SDV ONE (07:28)
[2024-03-29] MEDS ORDERED: ONDANSETRON HCL 4 MG/2 ML VIAL ONE (07:28)
[2024-03-29] MEDS ORDERED: ETOMIDATE (2MG/ML) 20ML VIAL IV ONE (07:28)
[2024-03-29] MEDS ORDERED: PHENYLEPHRINE HCL 10 MG/ML VL ONE (07:28)
[2024-03-29 07:52] LABS: INR 1.31 (0.9-1.15); Prothrombin Time 13.6 sec (9.3-11.8)
[2024-03-29] MEDS: ceFAZolin 2 GM/D5W100ml 100 ML IV ONE (08:25)
[2024-03-29] MEDS ORDERED: fentaNYL CITRATE 5 ML ONE (09:08)
[2024-03-29] MEDS: NOREPINEPHRINE 8 MG/250ML KIT 250 ML IV ONE (09:14)
[2024-03-29] MEDS ORDERED: HYDROmorphone HCL 2 MG/ML VL/or syr ONE (09:40)
--- NOTE | 2024-03-29 10:37 | DVHOP2 ---
Operative Report [id number] SBO SEC ADHESIONS, SMALL BOWEL STRICTURE BOWEL ISCHEMIA E LAP SMALL BOWEL RESECTION AND ANASTOMOSIS LYSIS OF ADHESIONS EBL 50 CC NO DRAINS NO COMPLICATIONS SURG ASSIST [place] CONDITION CRITICAL TRANSFERRED TO ICU FAMILY AWARE RUFUS CHOE MD Mar 29, 2024 10:37
[2024-03-29] MEDS ORDERED: HYDROmorphone HCL 2 MG/ML VL/or syr IV PRN (11:00)
[2024-03-29] MEDS ORDERED: MIDAZOLAM HCL 2MG/2ML 2ml VIAL (1mg/ml) IV PRN (11:00)
[2024-03-29] MEDS ORDERED: fentaNYL CITRATE 100 MCG/2 ML VL IV PRN (11:00)
--- NOTE | 2024-03-29 11:22 | DVHOP ---
DATE OF SURGERY: 03/29/2024 PREOPERATIVE DIAGNOSIS: Bowel obstruction secondary to adhesions with small bowel stricturing as well located where the obstruction was. POSTOPERATIVE DIAGNOSIS: Bowel obstruction secondary to adhesions with small bowel stricturing as well located where the obstruction was. PROCEDURE: Exploratory laparotomy with bowel resection and primary anastomosis. SURGEON: Eran French MD. LICENSED MASS REAL ESTATE APPRAISER: Deejay. ANESTHESIA: General. BLOOD LOSS: Close to 50 mL. DRAINS: No drains were used. COMPLICATIONS: No complications were encountered. DESCRIPTION OF PROCEDURE: The patient was prepped and draped in the usual sterile fashion in a supine position and a vertical midline incision was applied, was taken down to the fascia. The abdomen was entered. There was a dark intra-abdominal bleed that was noted that was suctioned out and ischemic bowel was noted. A loop of ischemic bowel was noted close to the ileocecal junction and it was realized there was an adhesion of the omental tissue in the left upper quadrant that had allowed this to happen, and because of that, there was restriction of the small bowel in that location as well and even though that the obstruction was released and there was some circulation that was evident in the small bowel segment that had gotten ischemic, it was realized that because of the stricture, resection had to be undertaken and to be on the safe side, the ischemic portion of the small bowel also was included in the resection. A SAHRA stapling device was used to transect the proximal side, making sure it was done on the healthy bowel location and then distally also healthy small bowel location was found for transection using the Endo-SAHRA stapling device. The mesenteric tissues were taken down using LigaSure device as well as the stapling device as well and then the [id number] primary anastomosis was carried out using the stapling device as well after bringing the proximal and the distal bowel loops together. Suturing of the staple line on both sides with the silk suture and the openings were made proximally and distally to allow the stapling device to be introduced and it was then fired. The final opening was also secured with a stapling device as well, thereby establishing an adequate viable nonbleeding anastomosis. With this being done, reinforcing 3-0 silk suture was applied close to the anastomosis distal to the staple line and then the proximal was decompressed into the stomach. The NG tube was palpated and positioned properly and the fluid was seen going from the proximal bowel to the distal collapsed bowel as well, thereby ensuring adequacy of the anastomosis. With this being done, no further intervention was necessary. The entire abdominal cavity was thoroughly irrigated. Old blood that was seen, presumably from the mesenteric tissue from the ischemia, was removed as well. With this being done, the small bowel was replaced back into the abdomen in its anatomic location, with the anastomosis secured and the mesenteric tissue was brought together using Vicryl suture in a continuous running fashion and then the bowel was replaced back into the abdomen. Sponge count and needle count was reported correct. The fascia was brought together using a Maxon suture in a continuous running fashion and the skin incision was brought together using a stapling device. Dressing was applied. The patient tolerated the procedure well and was taken back to the recovery room in a stable condition. MD GILDARDO Rios/HERNAN/ARLEY TID: [id number] RECEIPT: [id number] cc: Tee Roy MD
[2024-03-29] MEDS: fentaNYL Drip 2500mCg/250mlNS 250 ML IV SCH (11:24)
[2024-03-29] MEDS: MIDAZOLAM DRIP 50 mg/50mL 50 ML IV SCH (11:38)
[2024-03-29 13:58] LABS: Base Excess -4.2 mmol/L (-2.0-3.0)
[2024-03-29] MEDS: NOREPINEPHRINE 8 MG/250ML KIT 250 ML IV SCH (15:34)
--- NOTE | 2024-03-29 16:40 | DVHPN2 ---
Subjective Overnight events noted. Patient is status post exploratory laparotomy with a bowel resection remains intubated and sedated. Reviewed: Care Plan Changes from previous H/P or p: No Changes Objective Vitals Vital Signs Date Time Temp Pulse Resp B/P (MAP) Pulse Ox O2 Delivery O2 Flow Rate FiO2 03/29/24 16:06 76/48 03/29/24 13:13 86 17 95 50 03/29/24 10:43 97.8 97.8 03/29/24 10:43 Mechanical Ventilator 03/29/24 08:00 0 Intake/Output Intake and Output 03/29/24 07:00 Intake Total 400 ml Output Total 500 ml Balance -100 ml Intake Oral 0 ml IV Total 400 ml Output Urine Total 500 ml Exam HEENT pupils are reactive Neck is supple CV is S1-S2 regular rate and rhythm Respiratory diminished breath sounds bases GI positive bowel sounds sluggish extremities no edema 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 Medications Current Medications Medications Dose Ordered Sig/Edin Route Start Time Stop Time Status Last Admin Dose Admin Sodium Chloride 1,000 ml @ 60 mls/hr [id number] IV 03/27/24 16:00 03/27/24 16:00 60 MLS/HR Ondansetron HCl 4 mg Q4HP PRN IV 03/27/24 16:00 03/28/24 07:32 4 MG Enoxaparin Sodium 40 mg DAILY SC 03/28/24 10:00 03/28/24 11:07 40 MG Nitroglycerin 0.4 mg Q5MINP PRN SL 03/27/24 16:00 Piperacillin Sod/ Tazobactam Sod 100 ml @ 25 mls/hr Q8H IV 03/28/24 00:00 03/29/24 00:16 25 MLS/HR Levetiracetam 100 ml @ 400 mls/hr BID IV 03/27/24 22:00 03/28/24 21:38 400 MLS/HR Hydromorphone HCl 0.25 mg Q4HPRN PRN IV 03/27/24 16:45 03/28/24 22:31 0.25 MG Ondansetron HCl 4 mg Q4HPRN PRN IV 03/27/24 16:30 UNV Midazolam HCl 50 ml @ 1 mls/hr Q24H IV 03/29/24 11:00 03/29/24 11:38 1 MLS/HR Fentanyl Citrate 250 ml @ 2.5 mls/hr Q24H IV 03/29/24 11:00 03/29/24 11:24 2.5 MLS/HR Norepinephrine Bitartrate 250 ml @ 3.75 mls/hr Q24H IV 03/29/24 13:45 03/29/24 15:34 3.75 MLS/HR Laboratory Results Laboratory Tests 03/28/24 06:00 Coagulation Test 03/29/24 07:22 Prothrombin Time 13.6 sec (9.3-11.8) H Prothrombin Time INR 1.31 (0.9-1.15) H Urinalysis Test 03/26/24 20:30 Urine Color Yellow (Yellow) Urine Clarity Clear (Clear) Urine pH 5.0 (5.0-9.0) Urine Specific [place] 1.021 (1.001-1.035) Urine Protein Trace (Negative) H Urine Ketones Trace (Negative) Urine Blood Negative /uL (Negative) Urine Nitrite Negative (Negative) Urine Bilirubin Negative (Negative) Urine Urobilinogen Normal mg/dL (Negative) Urine Leukocyte Esterase Negative /uL (Negative) Urine RBC <1 /hpf (0 - 3) Urine WBC 1 /hpf (0 - 3) Urine Squamous Epithelial Cells Few /hpf (<5) Urine Bacteria None seen /hpf (None Seen) Urine Mucus Few (None Seen) Urine Glucose Normal mg/dL (Normal) Blood Gas Results Test 03/29/24 13:45 Arterial Blood pH 7.374 (7.350-7.450) FiO2 % 50.0 Assessment/Plan Assessment/Plan 83-year-old male with known history of coronary artery disease status post one- vessel CABG, seizure disorder, previous history of multiple inguinal hernia surgery presented to the hospital with the abdominal pain nausea vomiting found to have 1. Small bowel obstruction with adhesions at the previous operative site status post exploratory laparotomy with bowel resection and primary end-to-end anastomosis 2. Acute hypoxic respiratory failure postop remain intubated and sedated 3. Coronary artery disease status post one-vessel CABG 4. Seizure disorder 5. Hypertension -continue vent support, daily ABG, chest x-ray broad-spectrum IV antibiotics, IV fluids -follow up Pulmonary recommendation -follow up General surgery -plan of care discussed with the patient's bedside RN. Plan discussed with: Other My Orders Orders - CHEIKH GUIDRY MD Procedure Category Date Status Time Norepinephrine 8 PHA 03/29/24 In Process Mg/250ml Kit 13:45 * Picc Line Consult CONS 03/29/24 Transmitted 13:46 PTPTT LAB 03/29/24 Logged 13:46 Date of Service: Mar 29, 2024 Billing Provider: CHEIKH GUIDRY MD Common Visit Codes: NOT BILLABLE CHEIKH GUIDRY MD Mar 29, 2024 16:40
[2024-03-29 18:58] LABS: INR 1.23 (0.9-1.15); Prothrombin Time 12.8 sec (9.3-11.8)
--- NOTE | 2024-03-29 23:51 | DVHINCON2 ---
Date of service: Mar 29, 2024 Referring Physician Tee Roy MD Reason for Consultation Ventilator management History of Present Illness An 83-year-old male with known PMHx including coronary artery disease status post one-vessel CABG, previous history of recurrent abdominal hernia and in guinal hernia surgery x4, seizure disorder who initially presented to ED on 03/27/24 with abdominal pain, nausea and vomiting; was found to have small-bowel obstruction. Surgical evaluation by Dr. French showed no evidence of ischemia clinically. Patient denied any fever or chills, c/o abdominal pain,stating morphine is not working. Patient stated he has BM and passing flatus. Patient was admitted for further care and pulmonary consultation is requested for evaluation and management of acute hypoxic respiratory failure requiring mechanical ventilator. Review of Systems: 14-point review of systems negative unless otherwise noted above. Past Medical History: CAD, HTN, hyperlipidemia, seizures. Past Surgical History: CABG, recurrent abdominal hernia and inguinal hernia surgery x4 Medications: Reviewed. Allergies: No known drug allergies. Family History: CKD, alcoholism. Social History: Nonsmoker. No alcohol or illicit drug use. Family History: Alcoholism G8 FATHER FH: chronic kidney disease G8 MOTHER Allergies: Coded Allergies: NO KNOWN ALLERGIES (Unverified , 12/10/23) Home Meds Active Scripts Docusate Sodium (Dulcolax Stool Softener) 100 Mg Cap, 100 MG PO BID for 3 Days, #6 CAP Prov:JAMIN BETH MD 10/01/23 Levetiracetam (KEPPRA TABLET) 500 Mg Tb, 500 MG PO BID, #120 TAB Prov:CORDELIA BARON MD 06/27/22 Finasteride (Finasteride) 5 Mg Tab, 1 TAB PO QPM, #90 TAB 1 Refill Prov:CORDELIA BARON MD 06/26/22 Reported Medications Aspirin (Aspirin Low Dose) 81 Mg Chw, 1 TAB PO DAILY for 90 Days, #90 01/12/24 Tamsulosin Hcl (Tamsulosin Hcl) 0.4 Mg Cap, 1 CAP PO DAILY for 90 Days, #90 01/12/24 Metoprolol Tartrate (Lopressor) 25 Mg Tb, 1 TAB PO BID for 30 Days, #60 0 Refills 01/12/24 Atorvastatin Calcium (Lipitor) 40 Mg Tab, 1 TAB PO DAILY for 90 Days, #90 01/12/24 Tramadol Hcl (Tramadol Hcl) 50 Mg Tab, 50 MG PO TID PRN for PAIN SCALE 1 THRU 6, MG 01/24/23 Clopidogrel Bisulfate (Plavix) 75 Mg Tab, 75 MG PO DAILY for CHEST PAIN 10/12/11 Current Medications Current Medications Medications (Trade) Dose Ordered Sig/Edin Route PRN Reason Start Time Stop Time Status Last Admin Midazolam HCl (Versed Injection) 1 mg Q10M PRN IV ANXIETY 03/29/24 11:00 03/29/24 11:41 DC Fentanyl Citrate 25 mcg Q1HP PRN IV BREAKTHROUGH PAIN (7-10) 03/29/24 11:00 03/29/24 11:13 DC Hydromorphone HCl (Dilaudid Injection) 0.5 mg Q10M PRN IV SEVERE PAIN (7-10 PAIN SCALE) 03/29/24 11:00 03/29/24 11:41 DC Midazolam HCl 50 ml @ 1 mls/hr Q24H IV 03/29/24 11:00 03/29/24 11:38 Fentanyl Citrate 250 ml @ 2.5 mls/hr Q24H IV 03/29/24 11:00 03/29/24 11:24 Norepinephrine Bitartrate 250 ml @ 3.75 mls/hr Q24H IV 03/29/24 13:45 03/29/24 15:34 Vital Signs Vital Signs Date Time Temp Pulse Resp B/P (MAP) Pulse Ox O2 Delivery O2 Flow Rate FiO2 03/29/24 22:53 88 18 89/53 94 40 03/29/24 18:00 Mechanical Ventilator+ 03/29/24 16:00 98.8 98.8 03/29/24 08:00 0 Physical Exam Gen.: Patient lying in bed in medical ICU. Sedated, intubated on mechanical ventilator. Head: Normocephalic, atraumatic. Eyes: PERRLA. Ears: Normal external anatomy. Throat: Endotracheal tube and orogastric tube in place. Neck: Supple, trachea midline. Chest: Transmitted breath sounds bilaterally. Decreased air entry bilaterally. No wheezing. Bibasilar crackles. Cardiovascular: Positive S1, positive S2. Regular rate and rhythm. Abdomen: Positive bowel sounds in all 4 quadrants. Soft, nontender, nondistended. : Childs in place. Normal external genitalia. Rectal: Deferred. Skin: Warm, dry. Intact. Extremities: 2+ radial pulses bilaterally. No lower extremity edema. Neuro: Sedated. Labs/Diagnostic Data Labs Test 03/29/24 16:55 03/29/24 13:45 03/28/24 06:00 03/27/24 02:47 Range/Units Prothrombin Time 12.8 H 9.3-11.8 sec Prothrombin Time INR 1.23 H 0.9-1.15 Activated Partial Thromboplast Time 29.0 24.5-34.5 SEC Blood Gas Specimen Type Arterial Blood Gas Sample Site Right radial Blood Gas Patient Temperature 37.0 Arterial Blood Date Drawn [id number] Arterial Blood pH 7.374 7.350-7.450 Arterial Blood Partial Pressure CO2 35.7 35.0-48.0 mmHg Arterial Blood Partial Pressure O2 79.5 L 83.0-108.0 mmHg Arterial Blood HCO3 20.4 L 21.0-28.0 mmol/L Arterial Blood Oxygen Saturation 94.4 94.0-98.0 % Arterial Blood Base Excess -4.2 L -2.0-3.0 mmol/L Arterial Blood Oxyhemoglobin 93.5 L 94.0-98.0 % Arterial Blood Carboxyhemoglobin 0.9 0.5-1.5 % Arterial Blood Methemoglobin 0.1 0.0-1.5 % Jesse Test Modified Blood Gas Total Hemoglobin 13.90 13.5-17.5 g/dL Blood Gas Set Respiration Rate 16.0 Blood Gas Modality Vent - ac FiO2 % 50.0 Blood Gas Tidal Volume 500.0 Blood Gas PEEP or CPAP 5.0 White Blood Count 6.2 4.4-10.8 10^3/uL Red Blood Count 5.23 4.5-5.90 10^6/uL Hemoglobin 13.9 13.5-17.5 g/dL Hematocrit 43.2 41.0-53.0 % Mean Corpuscular Volume 82.5 80.0-100.0 fL Mean Corpuscular Hemoglobin 26.6 L 28.0-32.0 pg Mean Corpuscular Hemoglobin Concent 32.3 32.0-36.0 g/dL Red Cell Distribution Width 15.6 H 11.8-14.3 % Platelet Count 236 140-450 10^3/uL Mean Platelet Volume 8.6 6.9-10.8 fL Neutrophils (%) (Auto) 69.2 37.0-80.0 % Lymphocytes (%) (Auto) 12.7 10.0-50.0 % Monocytes (%) (Auto) 17.7 H 0.0-12.0 % Eosinophils (%) (Auto) 0.0 0.0-7.0 % Basophils (%) (Auto) 0.4 0.0-2.0 % Neutrophils # (Auto) 4.3 1.6-8.6 10 ^3/uL Lymphocytes # (Auto) 0.8 0.4-5.4 10 ^3/uL Monocytes # (Auto) 1.1 0-1.3 10 ^3/uL Eosinophils # (Auto) 0 0-0.8 10 ^3/uL Basophils # (Auto) 0 0-0.2 10 ^3/uL Nucleated Red Blood Cells 0.0 % Sodium Level 138 136-145 mmol/L Potassium Level 4.0 3.5-5.1 mmol/L Chloride Level 104 98-107 mmol/L Carbon Dioxide Level 23 20-31 mmol/L Anion Gap 11 5-15 Blood Urea Nitrogen 20 9-23 mg/dL Creatinine 1.19 0.700-1.30 mg/dL Glomerular Filtration Rate Calc 61 >90 mL/min BUN/Creatinine Ratio 16.8 10.0-20.0 Serum Glucose 188 H 74-106 mg/dL Calcium Level 9.6 8.7-10.4 mg/dL Total Bilirubin 1.1 H 0.2-1.0 mg/dL Aspartate Amino Transferase (AST) 19 13-40 U/L Alanine Aminotransferase (ALT) 19 7-40 U/L Alkaline Phosphatase 91 46-116 U/L Total Protein 6.8 5.7-8.2 g/dL Albumin 4.4 3.2-4.8 g/dL Lactic Acid Level 2.0 0.4-2.0 mmol/L Test 03/26/24 20:30 03/26/24 19:44 Range/Units Urine Color Yellow Yellow Urine Clarity Clear Clear Urine pH 5.0 5.0-9.0 Urine Specific [place] 1.021 1.001-1.035 Urine Protein Trace H Negative Urine Ketones Trace Negative Urine Blood Negative Negative /uL Urine Nitrite Negative Negative Urine Bilirubin Negative Negative Urine Urobilinogen Normal Negative mg/dL Urine Leukocyte Esterase Negative Negative /uL Urine RBC <1 0 - 3 /hpf Urine WBC 1 0 - 3 /hpf Urine Squamous Epithelial Cells Few <5 /hpf Urine Bacteria None seen None Seen /hpf Urine Mucus Few None Seen Urine Glucose Normal Normal mg/dL Lipase 54 H 12-53 U/L Assessment Impression: Acute hypoxic respiratory failure On mechanical ventilator Shock Aspiration pneumonia Bowel ischemia, s/p resection Severe mitral regurgitation Plan: s/p intubation on mechanical ventilator. CXR image and report reviewed. Devices in place. Pulmonary vascular congestion. No pneumothorax. No pleural effusion. ABG reviewed, compensated. On AC mode; RR 16, VT 500, PEEP 5, FiO2 50% Titrate FIO2 to keep O2 saturation above 90%. VAP bundle. Daily ABG and CXR while intubated Sedate for ventilator synchrony Continue antibiotics. Pressors for hemodynamic support Titrate to keep mean arterial pressure greater than 65 mmHg. Monitor renal function Monitor electrolytes. Supplement as necessary. Monitor ins and outs. Maintain euvolemia. GI prophylaxis. DVT prophylaxis. Prognosis: Poor given patient's multiple co-morbidities. Condition: Critical Rest of plan per hospitalist and other consultants. A total of 35 minutes of critical care time was spent reviewing the patient record, examining the patient, making a diagnostic and therapeutic plan, disc ussing this plan with the medical personnel, following up on diagnostic studies and following the patient for clinical stability excluding any and all procedures. At least 50% of this time was spent in direct, [id number] contact. Thank you Dr. Roy for allowing me to participate in this patient's care. Further recommendations will depend on the patient's clinical course. Please do not hesitate to contact me if you have any questions or concerns. This medical document was created using an electronic medical record system with [employer] dictation system. Although these documentations are being carefully reviewed, there may still be some phonetic and typographical changes. The errors are purely typographical, due to imperfection on the software program, and do not reflect any compromise in the patient's medical care. Plan discussed with: Other (RN, RT, MD) CLARISA ARCHULETA MD Mar 29, 2024 23:51
[2024-03-30] VITALS (103 sets, daily range): BP systolic 89–153; BP diastolic 43–86; PULSE 60–92; RESP 10–21; TEMP 96.8–98.9; O2SAT 94–99
[2024-03-30 04:13] LABS: Basophils # (auto) 0 10 ^3/uL (0-0.2); Eosinophils # (auto) 0 10 ^3/uL (0-0.8); Mean Corpuscular Hemoglobin 26.6 pg (28.0-32.0); Neutrophils # (auto) 6.3 10 ^3/uL (1.6-8.6); Red Cell Distribution Width 15.8 % (11.8-14.3)
[2024-03-30 04:17] LABS: Hematocrit 36.6 % (41.0-53.0); Hemoglobin 11.9 g/dL (13.5-17.5); Lymphocytes # (auto) 0.7 10 ^3/uL (0.4-5.4); Lymphocytes % (auto) 8.9 % (10.0-50.0); Mean Corpuscular Hgb Conc. 32.6 g/dL (32.0-36.0); Mean Corpuscular Volume 81.6 fL (80.0-100.0); Monocytes # (auto) 1.2 10 ^3/uL (0-1.3); Monocytes % (auto) 14.9 % (0.0-12.0); Neutrophils % (auto) 76.2 % (37.0-80.0); Platelet Count (auto) 200 10^3/uL (140-450); Red Blood Cells 4.49 10^6/uL (4.5-5.90); White Blood Cell 8.3 10^3/uL (4.4-10.8)
[2024-03-30 04:23] LABS: Anion Gap 10 (5-15); Carbon Dioxide 22 mmol/L (20-31); Potassium 4.4 mmol/L (3.5-5.1); Sodium 142 mmol/L (136-145)
[2024-03-30 04:29] LABS: Blood Urea Nitrogen 34 mg/dL (9-23); Calcium 8.5 mg/dL (8.7-10.4); Chloride 110 mmol/L (98-107); Glucose 166 mg/dL (74-106)
--- NOTE | 2024-03-30 05:06 | DVH ---
CHEST RADIOGRAPH Indication: intubated Technique: Single frontal view of the chest was obtained COMPARISON: XY CHEST XRAY 1 VIEW on DOS: 03/27/24, XY CHEST PORTABLE on DOS: 01/29/24, XY CHEST PRICILLA BLE on DOS: 01/11/24, XY CHEST PORTABLE on DOS: 04/04/23, XY CHEST XRAY 1 VIEW on DOS: 08/11/22 FINDINGS: Lines and Tubes: Endotracheal tube and enteric catheter in satisfactory position. Median sternotomy. Lungs: Diffuse congestion. Pleura: No effusion. No pneumothorax. Cardiomediastinal contours: Unremarkable Bones: Unremarkable IMPRESSION: Lines and tubes in satisfactory position. No significant interval change.
--- NOTE | 2024-03-30 08:50 | DVH ---
CHEST RADIOGRAPH Indication: ET TUBE PLACEMENT Technique: Single frontal view of the chest was obtained COMPARISON: XY CHEST XRAY 1 VIEW on DOS: 03/27/24, XY CHEST PORTABLE on DOS: 01/29/24, XY CHEST PRICILLA BLE on DOS: 01/11/24, XY CHEST PORTABLE on DOS: 04/04/23, XY CHEST XRAY 1 VIEW on DOS: 08/11/22 FINDINGS: Lines and Tubes: Endotracheal tube and enteric catheter in satisfactory position. Median sternotomy. Lungs: Congestion Pleura: No effusion. No pneumothorax. Cardiomediastinal contours: Unremarkable Bones: Unremarkable IMPRESSION: Lines and tubes in satisfactory position. No significant interval change.
[2024-03-30] MEDS: FUROSEMIDE 20 MG/2 ML VIAL IV ONE (11:27)
[2024-03-30] MEDS ORDERED: TPN PER PHARMACY 0 ML IV SCH (11:45)
--- NOTE | 2024-03-30 12:08 | DVHPN2 ---
Progress Note Date Seen: Mar 30, 2024 Medical Necessity Reason Pt with a Central, PICC or Fol: No Objective vital signs Vital Sign Date Time Temp Pulse Resp B/P (MAP) Pulse Ox O2 Delivery O2 Flow Rate FiO2 03/30/24 11:45 69 18 94/52 (66) 97 30 03/30/24 10:00 97.4 97.4 03/30/24 10:00 Mechanical Ventilator+ 03/29/24 08:00 0 Total Intake and Output 03/29/24 03/29/24 03/30/24 15:00 23:00 07:00 Intake Total 315.5 ml 533.75 ml 732.0 ml Output Total 225 ml 450 ml Balance 90.5 ml 533.75 ml 282.0 ml medications Current Medications Medications Dose Ordered Sig/Edin Route Start Time Stop Time Status Last Admin Dose Admin Sodium Chloride 1,000 ml @ 60 mls/hr [id number] IV 03/27/24 16:00 03/29/24 17:59 60 MLS/HR Ondansetron HCl 4 mg Q4HP PRN IV 03/27/24 16:00 03/28/24 07:32 4 MG Enoxaparin Sodium 40 mg DAILY SC 03/28/24 10:00 03/30/24 11:27 40 MG Nitroglycerin 0.4 mg Q5MINP PRN SL 03/27/24 16:00 Piperacillin Sod/ Tazobactam Sod 100 ml @ 25 mls/hr Q8H IV 03/28/24 00:00 03/30/24 07:32 25 MLS/HR Levetiracetam 100 ml @ 400 mls/hr BID IV 03/27/24 22:00 03/30/24 10:11 400 MLS/HR Hydromorphone HCl 0.25 mg Q4HPRN PRN IV 03/27/24 16:45 03/28/24 22:31 0.25 MG Ondansetron HCl 4 mg Q4HPRN PRN IV 03/27/24 16:30 UNV Midazolam HCl 50 ml @ 1 mls/hr Q24H IV 03/29/24 11:00 03/30/24 07:30 4 MLS/HR Fentanyl Citrate 250 ml @ 2.5 mls/hr Q24H IV 03/29/24 11:00 03/29/24 11:24 2.5 MLS/HR Norepinephrine Bitartrate 250 ml @ 3.75 mls/hr Q24H IV 03/29/24 13:45 03/29/24 15:34 3.75 MLS/HR Amino Acids 0 ml @ 0 mls/hr PER PHARMACY IV 03/30/24 11:45 UNV laboratory and microbiology Laboratory Tests 03/30/24 03:33 Test 03/30/24 03:33 Range/Units Serum Glucose 166 H 74-106 mg/dL Problem List/Assessment/Plan Problem List/Assessment/Plan AFEBRILE VSS INTUBATED ABD SOFT LESS DISTENDED NO BM FLATUS WOUND DRESSING IN PLACE CONTINUE CLOSE OBSERVATION OP FINDINGS DISCUSSED WITH FAMILY PROGNOSIS GUARDED PULM EVAL FOR POSSIBLE BRONCH NURSE AT BEDSIDE Plan discussed with: Other My Orders My Orders Orders - RUFUS CHOE MD Procedure Category Date Status Time Abg W/ Co-Ox RT 03/29/24 Logged 13:00 RUFUS CHOE MD Mar 30, 2024 12:08
--- NOTE | 2024-03-30 12:10 | DVHPN2 ---
Progress Note - Dictate Date Seen: Mar 30, 2024 Medical Necessity Reason Pt with a Central, PICC or Fol: No Subjective Remains intubated. Apparently patient has opacification in the lungs felt may have aspirated or mucus plugging. He is on FiO2 30%. vital signs Vital Sign Date Time Temp Pulse Resp B/P (MAP) Pulse Ox O2 Delivery O2 Flow Rate FiO2 03/30/24 11:45 69 18 94/52 (66) 97 30 03/30/24 10:00 97.4 97.4 03/30/24 10:00 Mechanical Ventilator+ 03/29/24 08:00 0 Total Intake and Output 03/29/24 03/29/24 03/30/24 15:00 23:00 07:00 Intake Total 315.5 ml 533.75 ml 732.0 ml Output Total 225 ml 450 ml Balance 90.5 ml 533.75 ml 282.0 ml medications Current Medications Medications Dose Ordered Sig/Edin Route Start Time Stop Time Status Last Admin Dose Admin Sodium Chloride 1,000 ml @ 60 mls/hr [id number] IV 03/27/24 16:00 03/29/24 17:59 60 MLS/HR Ondansetron HCl 4 mg Q4HP PRN IV 03/27/24 16:00 03/28/24 07:32 4 MG Enoxaparin Sodium 40 mg DAILY SC 03/28/24 10:00 03/30/24 11:27 40 MG Nitroglycerin 0.4 mg Q5MINP PRN SL 03/27/24 16:00 Piperacillin Sod/ Tazobactam Sod 100 ml @ 25 mls/hr Q8H IV 03/28/24 00:00 03/30/24 07:32 25 MLS/HR Levetiracetam 100 ml @ 400 mls/hr BID IV 03/27/24 22:00 03/30/24 10:11 400 MLS/HR Hydromorphone HCl 0.25 mg Q4HPRN PRN IV 03/27/24 16:45 03/28/24 22:31 0.25 MG Ondansetron HCl 4 mg Q4HPRN PRN IV 03/27/24 16:30 UNV Midazolam HCl 50 ml @ 1 mls/hr Q24H IV 03/29/24 11:00 03/30/24 07:30 4 MLS/HR Fentanyl Citrate 250 ml @ 2.5 mls/hr Q24H IV 03/29/24 11:00 03/29/24 11:24 2.5 MLS/HR Norepinephrine Bitartrate 250 ml @ 3.75 mls/hr Q24H IV 03/29/24 13:45 03/29/24 15:34 3.75 MLS/HR Amino Acids 0 ml @ 0 mls/hr PER PHARMACY IV 03/30/24 11:45 UNV objective Sedated comfortable on ventilator. HEENT neck supple no JVD. Heart regular rate and rhythm S1-S2. Lungs fair air movement without any audible wheezing. Chest tube will expansion. Abdomen soft hypoactive bowel sounds. Extremities no edema. laboratory and microbiology Laboratory Tests 03/30/24 03:33 Test 03/30/24 03:33 Range/Units Serum Glucose 166 H 74-106 mg/dL Assessment/Plan Acute hypoxemic respiratory failure postop Status post large bowel resection with end-to-end anastomosis due to bowel obstruction Postop hypotension on pressor Given the patient's lung issues he will probably not extubated/CPAP trials anytime soon. Therefore advised the nurse to start him on TPN for IV nutrition given her recent bowel surgery. Meantime pulmonary to evaluate and possibly consider bronchoscopy. Otherwise continue current pressor support rest of supportive care and treatment as he is on. DVT GI prophylaxis. Follow clinical management per clinical course and recommendations from consultants. Discussed with the nurse at bedside regarding care plan. Problems(with codes): (1) SBO (small bowel obstruction) (2) Acute abdominal pain Plan discussed with: Other CORDELIA BARON MD Mar 30, 2024 12:10
[2024-03-30] MEDS ORDERED: DEXTROSE (50%) 50ML SYRG IV SCH (15:45)
--- NOTE | 2024-03-30 16:40 | DVHNC2 ---
Procedure - Bronchoscopy procedure note: Indications: Possible mucous plugging. Aspiration pneumonia Medicines: See INSPECTOR [employer]ASSEMBLY notes. Complications: None Procedure: Patient medications and allergies reviewed. The risks and benefits of the procedure and the sedation options and risk were discussed with the patient's healthcare proxy. All questions were answered and informed consent was obtained. Patient identification and proposed procedure were verified prior to the procedure by the physician, and a nurse, and the respiratory therapist in ICU room. The heart rate, respiratory rate, oxygen saturations, blood pressure, adequacy of pulmonary ventilation, and response to care were monitored th roughout the procedure. The physical status of the patient was reassessed after the procedure. After obtaining informed consent, the bronchoscope was introduced through the endotracheal tube and advanced into the trachea bronchial tree of both lungs. The procedure was accomplished without difficulty. The patient tolerated the procedure well. Findings: The trachea is in normal caliber. The caryn is sharp. The tracheobronchial tree of the right lung was examined to at least the first subsegmental level. The bronchial mucosa and anatomy in the right lung are normal. There are no endobronchial lesions. There was copious brownish secretions from right main stem bronchus onward throughout R1-R10. Right middle lobe (RML) Bronchoalveolar lavage (BAL) obtained. RML BAL sent for gram stain and culture. The left upper lobe, lingula, and left lower lobe were examined to at least the first subsegmental level. Bronchial mucosa and anatomy in the left upper lobe and lingula are normal. There were no endobronchial lesions. There was copious brownish secretions from left main stem bronchus onward throughout L1-L10. M ucous plugging removed from L6-L10. There was no active bleeding at the completion of the procedure. Estimated blood loss: Less than 5 mL. Impression: Copious aspirated contents bilaterally, these were removed Mucous plugging from L6-L10 RML BAL performed Recommendation: Follow-up RML BAL results. Procedure codes: 96880, bronchoscopy, rigid and flexible, including fluoroscopic guidance, one performed; with bronchial endobronchial broncho-alveolar lavage, single or multiple sites CLARISA ARCHULETA MD Mar 30, 2024 16:40
[2024-03-30] MEDS: LIDOCAINE 1% (LOCAL ANESTH.) PF 5ml SDV ID ONE (17:38)
[2024-03-30] MEDS: InsuLIN REG 1unit/0.01ml Soln (100units/ml) SC SCH (18:00)
[2024-03-30] MEDS: ACCU-CHEK COMFORT CURVE STRIP VI SCH (18:34)
[2024-03-30] MEDS: AMINO ACID INFUSION IN D5W 1,000 ML IV SCH (22:19)
[2024-03-30] MEDS: SODIUM CHLOR 0.9% PF (SALINE LOCK) 10ML VIAL/SYR IV SCH (22:20)
--- NOTE | 2024-03-30 23:36 | DVHPN2 ---
Progress Note - Dictate Date Seen: Mar 30, 2024 Medical Necessity Reason Pt with a Central, PICC or Fol: No Subjective Patient seen and examined at bedside. Sedated, intubated on mechanical ventilator. Overnight events reviewed vital signs Vital Sign Date Time Temp Pulse Resp B/P (MAP) Pulse Ox O2 Delivery O2 Flow Rate FiO2 03/30/24 21:33 62 16 91/50 (64) 94 30 03/30/24 18:00 Mechanical Ventilator+ 03/30/24 16:00 98.4 98.4 03/29/24 08:00 0 Total Intake and Output 03/29/24 03/29/24 03/30/24 14:59 22:59 06:59 Intake Total 311.0 ml 359.25 ml 832.0 ml Output Total 225 ml 450 ml Balance 86.0 ml 359.25 ml 382.0 ml medications Current Medications Medications Dose Ordered Sig/Edin Route Start Time Stop Time Status Last Admin Dose Admin Sodium Chloride 1,000 ml @ 60 mls/hr [id number] IV 03/27/24 16:00 03/30/24 22:40 60 MLS/HR Ondansetron HCl 4 mg Q4HP PRN IV 03/27/24 16:00 03/28/24 07:32 4 MG Enoxaparin Sodium 40 mg DAILY SC 03/28/24 10:00 03/30/24 11:27 40 MG Nitroglycerin 0.4 mg Q5MINP PRN SL 03/27/24 16:00 Piperacillin Sod/ Tazobactam Sod 100 ml @ 25 mls/hr Q8H IV 03/28/24 00:00 03/30/24 22:39 25 MLS/HR Levetiracetam 100 ml @ 400 mls/hr BID IV 03/27/24 22:00 03/30/24 22:19 400 MLS/HR Hydromorphone HCl 0.25 mg Q4HPRN PRN IV 03/27/24 16:45 03/28/24 22:31 0.25 MG Ondansetron HCl 4 mg Q4HPRN PRN IV 03/27/24 16:30 UNV Midazolam HCl 50 ml @ 1 mls/hr Q24H IV 03/29/24 11:00 03/30/24 18:44 4 MLS/HR Fentanyl Citrate 250 ml @ 2.5 mls/hr Q24H IV 03/29/24 11:00 03/30/24 19:23 7.5 MLS/HR Norepinephrine Bitartrate 250 ml @ 3.75 mls/hr Q24H IV 03/29/24 13:45 03/29/24 15:34 3.75 MLS/HR Amino Acids 0 ml @ 0 mls/hr PER PHARMACY IV 03/30/24 11:45 Amino Acids 1,000 ml @ 41 mls/hr DAILY@2200 IV 03/30/24 22:00 03/31/24 21:59 03/30/24 22:19 41 MLS/HR Diagnostic Test (Pha) 1 strip Q6HR 03/30/24 18:00 03/30/24 22:38 1 STRIP Insulin Human Regular FOLLOW SLIDING SCALE Q6HR SC 03/30/24 18:00 Dextrose 50 ml UD IV 03/30/24 15:45 Sodium Chloride 10 ml QSHIFT@10,22 IV 03/30/24 22:00 03/30/24 22:20 10 ML objective Gen.: Patient lying in bed in medical ICU. Sedated, intubated on mechanical ventilator. Head: Normocephalic, atraumatic. Eyes: PERRLA. Ears: Normal external anatomy. Throat: Endotracheal tube and orogastric tube in place. Neck: Supple, trachea midline. Chest: Transmitted breath sounds bilaterally. Decreased air entry bilaterally. No wheezing. Bibasilar crackles. Cardiovascular: Positive S1, positive S2. Regular rate and rhythm. Abdomen: Positive bowel sounds in all 4 quadrants. Soft, nontender, nondistended. : Childs in place. Normal external genitalia. Rectal: Deferred. Skin: Warm, dry. Intact. Extremities: 2+ radial pulses bilaterally. No lower extremity edema. Neuro: Sedated. laboratory and microbiology Laboratory Tests 03/30/24 03:33 Test 03/30/24 03:33 Range/Units Serum Glucose 166 H 74-106 mg/dL Assessment/Plan Impression: Acute hypoxic respiratory failure On mechanical ventilator Shock Aspiration pneumonia Bowel ischemia, s/p resection Severe mitral regurgitation Events: Remains on vent support Sedated on Versed, Fentanyl ABG reviewed, compensated. Metabolic acidosis w/ respiratory compensation Off Levophed, hemodynamically stable Continue abx IVF at 60 ml/hr TPN for nutritional support Plan for bronchoscopy to remove aspirated secretions and clear mucous plugs. Labs and imaging reviewed. Rest of plan as noted below. Plan: s/p intubation on mechanical ventilator. CXR image and report reviewed. Devices in place. Pulmonary vascular congestion. No pneumothorax. No pleural effusion. ABG reviewed, compensated. On AC mode; RR 16, VT 500, PEEP 5, FiO2 50% Titrate FIO2 to keep O2 saturation above 90%. VAP bundle. Daily ABG and CXR while intubated Sedate for ventilator synchrony Continue antibiotics. Pressors if necessary for hemodynamic support Titrate to keep mean arterial pressure greater than 65 mmHg. Monitor renal function Monitor electrolytes. Supplement as necessary. Monitor ins and outs. Maintain euvolemia. GI prophylaxis. DVT prophylaxis. Prognosis: Poor given patient's multiple co-morbidities. Condition: Critical Rest of plan per hospitalist and other consultants. A total of 35 minutes of critical care time was spent reviewing the patient record, examining the patient, making a diagnostic and therapeutic plan, discussing this plan with the medical personnel, following up on diagnostic studies and following the patient for clinical stability excluding any and all procedures. At least 50% of this time was spent in direct, [id number] contact. Thank you Dr. Roy for allowing me to participate in this patient's care. Further recommendations will depend on the patient's clinical course. Please do not hesitate to contact me if you have any questions or concerns. This medical document was created using an electronic medical record system with [employer] dictation system. Although these documentations are being carefully reviewed, there may still be some phonetic and typographical changes. The errors are purely typographical, due to imperfection on the software program, and do not reflect any compromise in the patient's medical care. Plan discussed with: Other (ANNAMARIE Boggs) Critical Care Time(min): 35 CLARISA ARCHULETA MD Mar 30, 2024 23:36
[2024-03-31] VITALS (103 sets, daily range): BP systolic 91–148; BP diastolic 42–85; PULSE 57–86; RESP 14–21; TEMP 97.7–99.5; O2SAT 95–100
[2024-03-31 03:27] LABS: Basophils # (auto) 0 10 ^3/uL (0-0.2); Eosinophils # (auto) 0 10 ^3/uL (0-0.8); Mean Corpuscular Volume 81.6 fL (80.0-100.0); Monocytes # (auto) 0.8 10 ^3/uL (0-1.3); Monocytes % (auto) 14.4 % (0.0-12.0); Neutrophils # (auto) 4.2 10 ^3/uL (1.6-8.6); Red Cell Distribution Width 15.8 % (11.8-14.3); White Blood Cell 5.8 10^3/uL (4.4-10.8)
[2024-03-31 03:29] LABS: Basophils % (auto) 0.1 % (0.0-2.0); Eosinophils % (auto) 0.2 % (0.0-7.0); Hematocrit 30.2 % (41.0-53.0); Lymphocytes # (auto) 0.7 10 ^3/uL (0.4-5.4); Lymphocytes % (auto) 12.7 % (10.0-50.0); Mean Corpuscular Hemoglobin 27.1 pg (28.0-32.0); Mean Corpuscular Hgb Conc. 33.2 g/dL (32.0-36.0); Neutrophils % (auto) 72.6 % (37.0-80.0); Platelet Count (auto) 155 10^3/uL (140-450)
[2024-03-31 03:38] LABS: Alanine Aminotransferase 10 U/L (7-40); Anion Gap 6 (5-15); BUN/Creatinine Ratio 31.2 (10.0-20.0); Carbon Dioxide 26 mmol/L (20-31); Magnesium 2.4 mg/dL (1.6-2.6); Phosphorus 2.6 mg/dL (2.4-5.1); Sodium 144 mmol/L (136-145); Triglycerides 100 mg/dL (< 150)
[2024-03-31 03:39] LABS: Bilirubin, Total 0.5 mg/dL (0.2-1.0)
[2024-03-31 03:40] LABS: Alkaline Phosphatase 45 U/L (46-116); Aspartate Aminotransferase 12 U/L (13-40); Blood Urea Nitrogen 39 mg/dL (9-23); Calcium 8.3 mg/dL (8.7-10.4); Chloride 112 mmol/L (98-107); Glucose 144 mg/dL (74-106); Total Protein 4.8 g/dL (5.7-8.2)
--- NOTE | 2024-03-31 06:25 | DVH ---
CHEST RADIOGRAPH Indication: vent Technique: Single frontal view of the chest was obtained Comparison: XY CHEST PORTABLE on DOS: 03/30/24, XY CHEST XRAY 1 VIEW on DOS: 03/29/24, XY CHEST XRAY 1 VIEW on DOS: 03/27/24 IMPRESSION: There is cardiomegaly with median sternotomy wires. Support lines and tubes appear unchanged. There has been overall improvement in pulmonary vascular congestion with persistent atelectasis in the left mid lung. Possible trace left pleural effusion. No pneumothorax.
[2024-03-31 08:15] LABS: Base Excess -2.7 mmol/L (-2.0-3.0)
--- NOTE | 2024-03-31 14:51 | DVHPN2 ---
Progress Note Date Seen: Mar 31, 2024 Medical Necessity Reason Pt with a Central, PICC or Fol: No Objective vital signs Vital Sign Date Time Temp Pulse Resp B/P (MAP) Pulse Ox O2 Delivery O2 Flow Rate FiO2 03/31/24 13:26 80 17 140/77 (98) 98 30 03/31/24 08:00 98.7 98.7 03/31/24 08:00 Mechanical Ventilator+ 03/29/24 08:00 0 Total Intake and Output 03/30/24 03/30/24 03/31/24 15:00 23:00 07:00 Intake Total 1090.75 ml 837.0 ml 877.0 ml Output Total 910 ml 460 ml Balance 1090.75 ml -73.0 ml 417.0 ml medications Current Medications Medications Dose Ordered Sig/Edin Route Start Time Stop Time Status Last Admin Dose Admin Sodium Chloride 1,000 ml @ 60 mls/hr [id number] IV 03/27/24 16:00 03/30/24 22:40 60 MLS/HR Ondansetron HCl 4 mg Q4HP PRN IV 03/27/24 16:00 03/28/24 07:32 4 MG Enoxaparin Sodium 40 mg DAILY SC 03/28/24 10:00 03/31/24 09:21 40 MG Nitroglycerin 0.4 mg Q5MINP PRN SL 03/27/24 16:00 Piperacillin Sod/ Tazobactam Sod 100 ml @ 25 mls/hr Q8H IV 03/28/24 00:00 03/31/24 08:31 25 MLS/HR Levetiracetam 100 ml @ 400 mls/hr BID IV 03/27/24 22:00 03/31/24 09:18 400 MLS/HR Hydromorphone HCl 0.25 mg Q4HPRN PRN IV 03/27/24 16:45 03/28/24 22:31 0.25 MG Ondansetron HCl 4 mg Q4HPRN PRN IV 03/27/24 16:30 UNV Midazolam HCl 50 ml @ 1 mls/hr Q24H IV 03/29/24 11:00 03/30/24 18:44 4 MLS/HR Fentanyl Citrate 250 ml @ 2.5 mls/hr Q24H IV 03/29/24 11:00 03/30/24 19:23 7.5 MLS/HR Norepinephrine Bitartrate 250 ml @ 3.75 mls/hr Q24H IV 03/29/24 13:45 03/29/24 15:34 3.75 MLS/HR Amino Acids 0 ml @ 0 mls/hr PER PHARMACY IV 03/30/24 11:45 Amino Acids 1,000 ml @ 41 mls/hr DAILY@2200 IV 03/30/24 22:00 03/31/24 21:59 03/30/24 22:19 41 MLS/HR Diagnostic Test (Pha) 1 strip Q6HR 03/30/24 18:00 03/31/24 11:55 1 STRIP Insulin Human Regular FOLLOW SLIDING SCALE Q6HR SC 03/30/24 18:00 Dextrose 50 ml UD IV 03/30/24 15:45 Sodium Chloride 10 ml QSHIFT@10,22 IV 03/30/24 22:00 03/31/24 09:18 10 ML Fat Emulsion Intravenous 100 ml/Potassium Phosphate 44 meq/ Multivitamins 10 ml/Chromium/ Copper/Manganese/ Zinc 1 ml/Amino Acids/Dextrose/ Purified Water 1,221 ml @ 51 mls/hr [id number] IV 03/31/24 22:00 04/01/24 21:59 laboratory and microbiology Laboratory Tests 03/31/24 03:00 Test 03/31/24 03:00 Range/Units Serum Glucose 144 H 74-106 mg/dL Microbiology Date/Time Source Procedure Growth Status 03/30/24 16:30 Bronchial Washings Gram Stain - Final Resulted 03/30/24 16:30 Bronchial Washings Respiratory Culture - Preliminary Resulted Problem List/Assessment/Plan Problem List/Assessment/Plan AFEBRILE VSS INTUBATED ABD SOFT LESS DISTENDED NO BM FLATUS WOUND DRESSING IN PLACE CONTINUE CLOSE OBSERVATION PROGNOSIS GUARDED NURSE AT BEDSIDE Plan discussed with: Other Dietary Evaluation Review Recommendations by RD: Increase Calorie Intake Comments: 1) Increase TPN to provide at least 75% daily estimated energy neeeds 2) Advance to cardiac diet when medically feasible, per [employer]A COLUMN OPERATOR approval. 3) Continue to monitor I&O and patient's weight. 4) Continue to monitor nutrition-related labs. Expected Outcomes/Goals: 1) TPN to meet at least 75% daily estimated energy needs 2) diet to advance 3) labs to improve 4) f/u in 2-3 days RUFUS CHOE MD Mar 31, 2024 14:51
--- NOTE | 2024-03-31 16:37 | DVHPN2 ---
Progress Note - Dictate Date Seen: Mar 31, 2024 Medical Necessity Reason Pt with a Central, PICC or Fol: No Subjective Remains intubated. Having said history and vacation and CPAP trials at present. vital signs Vital Sign Date Time Temp Pulse Resp B/P (MAP) Pulse Ox O2 Delivery O2 Flow Rate FiO2 03/31/24 16:05 80 17 125/70 (88) 98 30 03/31/24 12:00 98.9 98.9 03/31/24 08:00 Mechanical Ventilator+ 03/29/24 08:00 0 Total Intake and Output 03/30/24 03/30/24 03/31/24 15:00 23:00 07:00 Intake Total 1090.75 ml 837.0 ml 877.0 ml Output Total 910 ml 460 ml Balance 1090.75 ml -73.0 ml 417.0 ml medications Current Medications Medications Dose Ordered Sig/Edin Route Start Time Stop Time Status Last Admin Dose Admin Sodium Chloride 1,000 ml @ 60 mls/hr [id number] IV 03/27/24 16:00 03/30/24 22:40 60 MLS/HR Ondansetron HCl 4 mg Q4HP PRN IV 03/27/24 16:00 03/28/24 07:32 4 MG Enoxaparin Sodium 40 mg DAILY SC 03/28/24 10:00 03/31/24 09:21 40 MG Nitroglycerin 0.4 mg Q5MINP PRN SL 03/27/24 16:00 Piperacillin Sod/ Tazobactam Sod 100 ml @ 25 mls/hr Q8H IV 03/28/24 00:00 03/31/24 08:31 25 MLS/HR Levetiracetam 100 ml @ 400 mls/hr BID IV 03/27/24 22:00 03/31/24 09:18 400 MLS/HR Hydromorphone HCl 0.25 mg Q4HPRN PRN IV 03/27/24 16:45 03/28/24 22:31 0.25 MG Ondansetron HCl 4 mg Q4HPRN PRN IV 03/27/24 16:30 UNV Midazolam HCl 50 ml @ 1 mls/hr Q24H IV 03/29/24 11:00 03/30/24 18:44 4 MLS/HR Fentanyl Citrate 250 ml @ 2.5 mls/hr Q24H IV 03/29/24 11:00 03/30/24 19:23 7.5 MLS/HR Norepinephrine Bitartrate 250 ml @ 3.75 mls/hr Q24H IV 03/29/24 13:45 03/29/24 15:34 3.75 MLS/HR Amino Acids 0 ml @ 0 mls/hr PER PHARMACY IV 03/30/24 11:45 Amino Acids 1,000 ml @ 41 mls/hr DAILY@2200 IV 03/30/24 22:00 03/31/24 21:59 03/30/24 22:19 41 MLS/HR Diagnostic Test (Pha) 1 strip Q6HR 03/30/24 18:00 03/31/24 11:55 1 STRIP Insulin Human Regular FOLLOW SLIDING SCALE Q6HR SC 03/30/24 18:00 Dextrose 50 ml UD IV 03/30/24 15:45 Sodium Chloride 10 ml QSHIFT@10,22 IV 03/30/24 22:00 03/31/24 09:18 10 ML Fat Emulsion Intravenous 100 ml/Potassium Phosphate 44 meq/ Multivitamins 10 ml/Chromium/ Copper/Manganese/ Zinc 1 ml/Amino Acids/Dextrose/ Purified Water 1,221 ml @ 51 mls/hr [id number] IV 03/31/24 22:00 04/01/24 21:59 objective comfortable on ventilator with CPAP trials without any significant distress. HEENT neck supple no JVD. Heart regular rate and rhythm S1-S2. Lungs fair air movement without any audible wheezing. Chest tube will expansion. Abdomen soft hypoactive bowel sounds. Extremities no edema. 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 Continue CPAP trials and extubate per pulmonary recommendations. Patient is on Clinimix and we will start on TPN for pharmacy tonight. Discussed with the nurse at bedside regarding care plan. Dietary Evaluation Review Recommendations by RD: Increase Calorie Intake Comments: 1) Increase TPN to provide at least 75% daily estimated energy neeeds 2) Advance to cardiac diet when medically feasible, per DISPLAY SCREEN FABRICATOR approval. 3) Continue to monitor I&O and patient's weight. 4) Continue to monitor nutrition-related labs. Expected Outcomes/Goals: 1) TPN to meet at least 75% daily estimated energy needs 2) diet to advance 3) labs to improve 4) f/u in 2-3 days Plan discussed with: Other CORDELIA BARON MD Mar 31, 2024 16:37
[2024-03-31] MEDS: PANTOPRAZOLE 40 MG/10 ML VIAL INJ IV ONE (17:44)
[2024-03-31] MEDS: PANTOPRAZOLE 40 MG/10 ML VIAL INJ IV SCH (22:43)
[2024-03-31] MEDS: TPN PER PHARMACY IV NR (22:45)
--- NOTE | 2024-03-31 23:28 | DVHPN2 ---
Progress Note - Dictate Date Seen: Mar 31, 2024 Medical Necessity Reason Pt with a Central, PICC or Fol: No Subjective Patient seen and examined at bedside. intubated on mechanical ventilator. Overnight events reviewed vital signs Vital Sign Date Time Temp Pulse Resp B/P (MAP) Pulse Ox O2 Delivery O2 Flow Rate FiO2 03/31/24 23:00 99.1 75 19 124/70 (88) 97 99.1 133/69 (90) 03/31/24 22:46 30 03/31/24 22:00 Mechanical Ventilator+ 03/29/24 08:00 0 Total Intake and Output 03/30/24 03/30/24 03/31/24 15:00 23:00 07:00 Intake Total 1090.75 ml 837.0 ml 978.0 ml Output Total 910 ml 460 ml Balance 1090.75 ml -73.0 ml 518.0 ml medications Current Medications Medications Dose Ordered Sig/Edin Route Start Time Stop Time Status Last Admin Dose Admin Sodium Chloride 1,000 ml @ 60 mls/hr [id number] IV 03/27/24 16:00 03/31/24 17:16 60 MLS/HR Ondansetron HCl 4 mg Q4HP PRN IV 03/27/24 16:00 03/28/24 07:32 4 MG Enoxaparin Sodium 40 mg DAILY SC 03/28/24 10:00 03/31/24 09:21 40 MG Nitroglycerin 0.4 mg Q5MINP PRN SL 03/27/24 16:00 Piperacillin Sod/ Tazobactam Sod 100 ml @ 25 mls/hr Q8H IV 03/28/24 00:00 03/31/24 23:05 25 MLS/HR Levetiracetam 100 ml @ 400 mls/hr BID IV 03/27/24 22:00 03/31/24 22:45 400 MLS/HR Hydromorphone HCl 0.25 mg Q4HPRN PRN IV 03/27/24 16:45 03/28/24 22:31 0.25 MG Ondansetron HCl 4 mg Q4HPRN PRN IV 03/27/24 16:30 UNV Midazolam HCl 50 ml @ 1 mls/hr Q24H IV 03/29/24 11:00 03/30/24 18:44 4 MLS/HR Fentanyl Citrate 250 ml @ 2.5 mls/hr Q24H IV 03/29/24 11:00 03/30/24 19:23 7.5 MLS/HR Norepinephrine Bitartrate 250 ml @ 3.75 mls/hr Q24H IV 03/29/24 13:45 03/29/24 15:34 3.75 MLS/HR Amino Acids 0 ml @ 0 mls/hr PER PHARMACY IV 03/30/24 11:45 Diagnostic Test (Pha) 1 strip Q6HR 03/30/24 18:00 03/31/24 23:00 1 STRIP Insulin Human Regular FOLLOW SLIDING SCALE Q6HR SC 03/30/24 18:00 Dextrose 50 ml UD IV 03/30/24 15:45 Sodium Chloride 10 ml QSHIFT@10,22 IV 03/30/24 22:00 03/31/24 22:43 10 ML Fat Emulsion Intravenous 100 ml/Potassium Phosphate 44 meq/ Multivitamins 10 ml/Chromium/ Copper/Manganese/ Zinc 1 ml/Amino Acids/Dextrose/ Purified Water 1,221 ml @ 51 mls/hr [id number] IV 03/31/24 22:00 04/01/24 21:59 03/31/24 22:45 51 MLS/HR Pantoprazole Sodium 40 mg BID IV 03/31/24 22:00 03/31/24 22:43 40 MG objective Gen.: Patient lying in bed in medical ICU. Intubated on mechanical ventilator. Head: Normocephalic, atraumatic. Eyes: PERRLA. Ears: Normal external anatomy. Throat: Endotracheal tube and orogastric tube in place. Neck: Supple, trachea midline. Chest: Transmitted breath sounds bilaterally. Decreased air entry bilaterally. No wheezing. Bibasilar crackles. Cardiovascular: Positive S1, positive S2. Regular rate and rhythm. Abdomen: Positive bowel sounds in all 4 quadrants. Soft, nontender, nondistended. : Childs in place. Normal external genitalia. Rectal: Deferred. Skin: Warm, dry. Intact. Extremities: 2+ radial pulses bilaterally. No lower extremity edema. Neuro: Off sedation laboratory and microbiology Laboratory Tests 03/31/24 03:00 Test 03/31/24 03:00 Range/Units Serum Glucose 144 H 74-106 mg/dL Assessment/Plan Impression: Acute hypoxic respiratory failure On mechanical ventilator Shock Aspiration pneumonia Bowel ischemia, s/p resection Severe mitral regurgitation Events: Remains on vent support On AC mode; RR 16, VT 500, PEEP 5, FiO2 30% Off Versed, Fentanyl Off Levophed, hemodynamically stable ABG reviewed, compensated. CXR reviewed. Devices in place. Improvement in pulmonary vascular congestion with persistent atelectasis in the left mid lung. Possible trace left pleural effusion. No pneumothorax. Continue abx IVF at 60 ml/hr Clinimix for nutritional support Patient tolerated CPAP, not following commands. Off sedation Plan CPAP in AM Start Precedex for agitation. S/p therapeutic bronchoscopy on 03/30/24 - Mucous plugging from L6-L10; See separate procedure note for details. Labs and imaging reviewed. Rest of plan as noted below. Plan: s/p intubation on mechanical ventilator. On AC mode; RR 16, VT 500, PEEP 5, FiO2 30% Titrate FIO2 to keep O2 saturation above 90%. VAP bundle. Daily ABG and CXR while intubated Off sedation Continue antibiotics. Pressors if necessary for hemodynamic support Titrate to keep mean arterial pressure greater than 65 mmHg. Monitor renal function Monitor electrolytes. Supplement as necessary. Monitor ins and outs. Maintain euvolemia. GI prophylaxis. DVT prophylaxis. Prognosis: Poor given patient's multiple co-morbidities. Condition: Critical Rest of plan per hospitalist and other consultants. A total of 35 minutes of critical care time was spent reviewing the patient record, examining the patient, making a diagnostic and therapeutic plan, discussing this plan with the medical personnel, following up on diagnostic studies and following the patient for clinical stability excluding any and all procedures. At least 50% of this time was spent in direct, [id number] contact. Thank you Dr. Roy for allowing me to participate in this patient's care. Further recommendations will depend on the patient's clinical course. Please do not hesitate to contact me if you have any questions or concerns. This medical document was created using an electronic medical record system with [employer] system. Although these documentations are being carefully reviewed, there may still be some phonetic and typographical changes. The errors are purely typographical, due to imperfection on the software program, and do not reflect any compromise in the patient's medical care. Dietary Evaluation Review Recommendations by RD: Increase Calorie Intake Comments: 1) Increase TPN to provide at least 75% daily estimated energy neeeds 2) Advance to cardiac diet when medically feasible, per MAINTENANCE GROUNDMAN approval. 3) Continue to monitor I&O and patient's weight. 4) Continue to monitor nutrition-related labs. Expected Outcomes/Goals: 1) TPN to meet at least 75% daily estimated energy needs 2) diet to advance 3) labs to improve 4) f/u in 2-3 days Plan discussed with: Other (ANNAMARIE Dorado) Critical Care Time(min): 35 CLARISA ARCHULETA MD Mar 31, 2024 23:28
[2024-04-01] VITALS (107 sets, daily range): BP systolic 101–208; BP diastolic 56–193; PULSE 68–93; RESP 8–29; TEMP 98.1–99.5; O2SAT 92–100
[2024-04-01 04:14] LABS: Alanine Aminotransferase 10 U/L (7-40); Anion Gap 6 (5-15); BUN/Creatinine Ratio 39.8 (10.0-20.0); Bilirubin, Total 0.4 mg/dL (0.2-1.0); Carbon Dioxide 24 mmol/L (20-31); Magnesium 2.1 mg/dL (1.6-2.6); Potassium 3.6 mmol/L (3.5-5.1); Sodium 144 mmol/L (136-145)
[2024-04-01 04:35] LABS: Alkaline Phosphatase 44 U/L (46-116); Aspartate Aminotransferase 10 U/L (13-40); Blood Urea Nitrogen 33 mg/dL (9-23); Calcium 8.1 mg/dL (8.7-10.4); Chloride 114 mmol/L (98-107); Glucose 125 mg/dL (74-106); Phosphorus 1.9 mg/dL (2.4-5.1); Total Protein 4.7 g/dL (5.7-8.2)
--- NOTE | 2024-04-01 05:41 | DVH ---
CHEST RADIOGRAPH Indication: intubated Technique: Single frontal view of the chest was obtained Comparison: XY CHEST PORTABLE on DOS: 03/31/24 FINDINGS: Lines and Tubes: The endotracheal tube 2.8 cm above the caryn. Left PICC terminates in the superior vena cava. The enteric tube courses below the left hemidiaphragm and the tip extends outside the fie ld of view. Lungs: Left basilar atelectasis. Pleura: No effusion. No pneumothorax. Cardiomediastinal contours: Cardiomegaly. Bones: No acute osseous abnormality. Status post median sternotomy. IMPRESSION: 1. Left basilar atelectasis.
--- NOTE | 2024-04-01 05:46 | DVH ---
Exam: US US GUIDED VASCULAR ACCESS Clinical History: PICC LINE INSERTION Comparison: None Findings: Targeted sonographic evaluation of the arm vein was obtained utilizing grayscale and color Doppler im aging. IMPRESSION: Sonographic assistance for peripheral central line placement. Please refer to procedural report for d etailed findings.
[2024-04-01 06:31] LABS: Hemoglobin 9.2 g/dL (13.5-17.5); White Blood Cell 7.2 10^3/uL (4.4-10.8)
[2024-04-01 06:34] LABS: Hematocrit 29.1 % (41.0-53.0); Mean Corpuscular Hemoglobin 26.2 pg (28.0-32.0); Mean Corpuscular Hgb Conc. 31.6 g/dL (32.0-36.0); Mean Corpuscular Volume 82.7 fL (80.0-100.0); Platelet Count (auto) 151 10^3/uL (140-450); Red Blood Cells 3.52 10^6/uL (4.5-5.90); Red Cell Distribution Width 16.3 % (11.8-14.3)
[2024-04-01 07:27] LABS: Basophils % (manual) 0 (0.0-2.0); Blast Cells 0; Myelocytes % 0; Promyelocytes % 0; Reactive Lymphocytes 0
[2024-04-01 09:31] LABS: Base Excess -1.3 mmol/L (-2.0-3.0)
[2024-04-01 09:37] LABS: Band Neutrophils % (manual) 6; Eosinophils % (manual) 5 (0-7); Lymphocytes % (manual) 16 (10.0-50.0); Metamyelocytes % 2; Monocytes % (manual) 11 (0-12)
[2024-04-01 09:38] LABS: Platelet Estimate Adequate
--- NOTE | 2024-04-01 10:08 | DVHPN2 ---
Progress Note Date Seen: Apr 01, 2024 Medical Necessity Reason Pt with a Central, PICC or Fol: No Objective vital signs Vital Sign Date Time Temp Pulse Resp B/P (MAP) Pulse Ox O2 Delivery O2 Flow Rate FiO2 04/01/24 10:00 80 22 143/81 (101) 98 146/64 (91) 04/01/24 08:00 99.3 99.3 04/01/24 08:00 Mechanical Ventilator+ 30 30 Total Intake and Output 03/31/24 03/31/24 04/01/24 15:00 23:00 07:00 Intake Total 953.0 ml 534 ml 1018 ml Output Total 1180 ml 750 ml Balance 953.0 ml -646 ml 268 ml medications Current Medications Medications Dose Ordered Sig/Edin Route Start Time Stop Time Status Last Admin Dose Admin Sodium Chloride 1,000 ml @ 60 mls/hr [id number] IV 03/27/24 16:00 04/01/24 08:17 60 MLS/HR Ondansetron HCl 4 mg Q4HP PRN IV 03/27/24 16:00 03/28/24 07:32 4 MG Enoxaparin Sodium 40 mg DAILY SC 03/28/24 10:00 04/01/24 08:18 40 MG Nitroglycerin 0.4 mg Q5MINP PRN SL 03/27/24 16:00 Piperacillin Sod/ Tazobactam Sod 100 ml @ 25 mls/hr Q8H IV 03/28/24 00:00 04/01/24 08:01 25 MLS/HR Levetiracetam 100 ml @ 400 mls/hr BID IV 03/27/24 22:00 04/01/24 08:17 400 MLS/HR Hydromorphone HCl 0.25 mg Q4HPRN PRN IV 03/27/24 16:45 03/28/24 22:31 0.25 MG Ondansetron HCl 4 mg Q4HPRN PRN IV 03/27/24 16:30 UNV Midazolam HCl 50 ml @ 1 mls/hr Q24H IV 03/29/24 11:00 03/30/24 18:44 4 MLS/HR Fentanyl Citrate 250 ml @ 2.5 mls/hr Q24H IV 03/29/24 11:00 03/30/24 19:23 7.5 MLS/HR Norepinephrine Bitartrate 250 ml @ 3.75 mls/hr Q24H IV 03/29/24 13:45 03/29/24 15:34 3.75 MLS/HR Amino Acids 0 ml @ 0 mls/hr PER PHARMACY IV 03/30/24 11:45 Diagnostic Test (Pha) 1 strip Q6HR 03/30/24 18:00 04/01/24 05:54 1 STRIP Insulin Human Regular FOLLOW SLIDING SCALE Q6HR SC 03/30/24 18:00 Dextrose 50 ml UD IV 03/30/24 15:45 Sodium Chloride 10 ml QSHIFT@10,22 IV 03/30/24 22:00 04/01/24 08:18 10 ML Fat Emulsion Intravenous 100 ml/Potassium Phosphate 44 meq/ Multivitamins 10 ml/Chromium/ Copper/Manganese/ Zinc 1 ml/Amino Acids/Dextrose/ Purified Water 1,221 ml @ 51 mls/hr [id number] IV 03/31/24 22:00 04/01/24 21:59 03/31/24 22:45 51 MLS/HR Pantoprazole Sodium 40 mg BID IV 03/31/24 22:00 04/01/24 08:17 40 MG Dexmedetomidine HCl 400 mcg/ Dextrose 100 ml @ 3.57 mls/hr Q24H IV 04/01/24 05:00 laboratory and microbiology Laboratory Tests 04/01/24 03:40 Test 04/01/24 03:40 Range/Units Serum Glucose 125 H 74-106 mg/dL Microbiology Date/Time Source Procedure Growth Status 03/30/24 16:30 Bronchial Washings Gram Stain - Final Resulted 03/30/24 16:30 Bronchial Washings Respiratory Culture - Preliminary Resulted Problem List/Assessment/Plan Problem List/Assessment/Plan AFEBRILE VSS INTUBATED ABD SOFT LESS DISTENDED NO BM FLATUS WOUND DRESSING IN PLACE CONTINUE CLOSE OBSERVATION PROGNOSIS GUARDED NURSE AT BEDSIDE EXTUBATION PROCESS ONGOING Plan discussed with: Other Dietary Evaluation Review Recommendations by RD: Increase Calorie Intake Comments: 1) Increase TPN to provide at least 75% daily estimated energy neeeds 2) Advance to cardiac diet when medically feasible, per CREDIT RISK OFFICER approval. 3) Continue to monitor I&O and patient's weight. 4) Continue to monitor nutrition-related labs. Expected Outcomes/Goals: 1) TPN to meet at least 75% daily estimated energy needs 2) diet to advance 3) labs to improve 4) f/u in 2-3 days RUFUS CHOE MD Apr 01, 2024 10:08
[2024-04-01] MEDS: POTASSIUM PHOSPHATE 26.4 MEQ in SODIUM CHL 0.9% 100 ML IV ONE (13:05)
[2024-04-01] MEDS ORDERED: EPINEPHrine HCL 0.5 ML NEB ONE (16:45)
[2024-04-01] MEDS: EPINEPHrine HCL 0.5 ML NEB NEB ONE (16:50)
[2024-04-01] MEDS ORDERED: EPINEPHrine HCL 0.5 ML NEB NEB ONE (17:00)
--- NOTE | 2024-04-01 17:13 | DVHPN2 ---
Progress Note - Dictate Date Seen: Apr 01, 2024 Medical Necessity Reason Pt with a Central, PICC or Fol: No Subjective Extubated about 10-15 minutes ago. Comfortable in bed. Nurse at bedside vital signs Vital Sign Date Time Temp Pulse Resp B/P (MAP) Pulse Ox O2 Delivery O2 Flow Rate FiO2 04/01/24 16:15 87 24 153/83 (106) 98 151/66 (94) 04/01/24 16:00 99.5 99.5 04/01/24 16:00 Mechanical Ventilator+ 30 30 Total Intake and Output 03/31/24 03/31/24 04/01/24 15:00 23:00 07:00 Intake Total 953.0 ml 534 ml 1018 ml Output Total 1180 ml 750 ml Balance 953.0 ml -646 ml 268 ml medications Current Medications Medications Dose Ordered Sig/Edin Route Start Time Stop Time Status Last Admin Dose Admin Sodium Chloride 1,000 ml @ 60 mls/hr [id number] IV 03/27/24 16:00 04/01/24 08:17 60 MLS/HR Ondansetron HCl 4 mg Q4HP PRN IV 03/27/24 16:00 03/28/24 07:32 4 MG Enoxaparin Sodium 40 mg DAILY SC 03/28/24 10:00 04/01/24 08:18 40 MG Nitroglycerin 0.4 mg Q5MINP PRN SL 03/27/24 16:00 Piperacillin Sod/ Tazobactam Sod 100 ml @ 25 mls/hr Q8H IV 03/28/24 00:00 04/01/24 16:17 25 MLS/HR Levetiracetam 100 ml @ 400 mls/hr BID IV 03/27/24 22:00 04/01/24 08:17 400 MLS/HR Hydromorphone HCl 0.25 mg Q4HPRN PRN IV 03/27/24 16:45 03/28/24 22:31 0.25 MG Ondansetron HCl 4 mg Q4HPRN PRN IV 03/27/24 16:30 UNV Midazolam HCl 50 ml @ 1 mls/hr Q24H IV 03/29/24 11:00 03/30/24 18:44 4 MLS/HR Fentanyl Citrate 250 ml @ 2.5 mls/hr Q24H IV 03/29/24 11:00 03/30/24 19:23 7.5 MLS/HR Norepinephrine Bitartrate 250 ml @ 3.75 mls/hr Q24H IV 03/29/24 13:45 03/29/24 15:34 3.75 MLS/HR Amino Acids 0 ml @ 0 mls/hr PER PHARMACY IV 03/30/24 11:45 Diagnostic Test (Pha) 1 strip Q6HR 03/30/24 18:00 04/01/24 12:14 1 STRIP Insulin Human Regular FOLLOW SLIDING SCALE Q6HR SC 03/30/24 18:00 04/01/24 12:17 2 UNITS Dextrose 50 ml UD IV 03/30/24 15:45 Sodium Chloride 10 ml QSHIFT@10,22 IV 03/30/24 22:00 04/01/24 08:18 10 ML Fat Emulsion Intravenous 100 ml/Potassium Phosphate 44 meq/ Multivitamins 10 ml/Chromium/ Copper/Manganese/ Zinc 1 ml/Amino Acids/Dextrose/ Purified Water 1,221 ml @ 51 mls/hr [id number] IV 03/31/24 22:00 04/01/24 21:59 03/31/24 22:45 51 MLS/HR Pantoprazole Sodium 40 mg BID IV 03/31/24 22:00 04/01/24 08:17 40 MG Dexmedetomidine HCl 400 mcg/ Dextrose 100 ml @ 3.57 mls/hr Q24H IV 04/01/24 05:00 Fat Emulsion Intravenous 100 ml/Potassium Acetate 20 meq/ Potassium Phosphate 44 meq/ Calcium Gluconate 2.3 meq/Magnesium Sulfate 6 meq/ Multivitamins 10 ml/Chromium/ Copper/Manganese/ Zinc 1 ml/Amino Acids/Dextrose/ Purified Water 1,337.4462 ml @ 55 mls/hr [id number] IV 04/01/24 22:00 04/02/24 21:59 objective HEENT neck supple no JVD. Heart regular rate and rhythm S1-S2. Lungs fair air movement without any audible wheezing. Poor inspiratory effort, Abdomen soft hypoactive bowel sounds. Extremities no edema. 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 Consider swallow evaluation in the morning. Continue NPO and TPN as he is on. Patient is evaluated by surgeon per nurse today and recommending NPO for now. Continue rest of supportive care and treatment. Further clinical management per clinical course. Discussed with the nurse at bedside. Dietary Evaluation Review Recommendations by RD: Increase Calorie Intake Comments: 1) Increase TPN to provide at least 75% daily estimated energy neeeds 2) Advance to cardiac diet when medically feasible, per BATCH AND FURNACE OPERATOR approval. 3) Continue to monitor I&O and patient's weight. 4) Continue to monitor nutrition-related labs. Expected Outcomes/Goals: 1) TPN to meet at least 75% daily estimated energy needs 2) diet to advance 3) labs to improve 4) f/u in 2-3 days Plan discussed with: Other CORDELIA BARON MD Apr 01, 2024 17:13
[2024-04-01 18:39] LABS: Base Excess -2.8 mmol/L (-2.0-3.0)
[2024-04-01] MEDS: HYDROmorphone HCL 2 MG/ML VL/or syr IV PRN (20:20)
--- NOTE | 2024-04-01 21:38 | DVHPN2 ---
Progress Note - Dictate Date Seen: Apr 01, 2024 Medical Necessity Reason Pt with a Central, PICC or Fol: No Subjective Patient seen and examined at bedside. intubated on mechanical ventilator. Overnight events reviewed vital signs Vital Sign Date Time Temp Pulse Resp B/P (MAP) Pulse Ox O2 Delivery O2 Flow Rate FiO2 04/01/24 21:15 76 22 147/83 (104) 98 147/59 (88) 04/01/24 21:00 98.9 98.9 04/01/24 20:00 Cool Aerosol 8 21 21 Total Intake and Output 03/31/24 03/31/24 04/01/24 15:00 23:00 07:00 Intake Total 953.0 ml 534 ml 1018 ml Output Total 1180 ml 750 ml Balance 953.0 ml -646 ml 268 ml medications Current Medications Medications Dose Ordered Sig/Edin Route Start Time Stop Time Status Last Admin Dose Admin Sodium Chloride 1,000 ml @ 60 mls/hr [id number] IV 03/27/24 16:00 04/01/24 08:17 60 MLS/HR Ondansetron HCl 4 mg Q4HP PRN IV 03/27/24 16:00 03/28/24 07:32 4 MG Enoxaparin Sodium 40 mg DAILY SC 03/28/24 10:00 04/01/24 08:18 40 MG Nitroglycerin 0.4 mg Q5MINP PRN SL 03/27/24 16:00 Piperacillin Sod/ Tazobactam Sod 100 ml @ 25 mls/hr Q8H IV 03/28/24 00:00 04/01/24 16:17 25 MLS/HR Levetiracetam 100 ml @ 400 mls/hr BID IV 03/27/24 22:00 04/01/24 08:17 400 MLS/HR Ondansetron HCl 4 mg Q4HPRN PRN IV 03/27/24 16:30 UNV Midazolam HCl 50 ml @ 1 mls/hr Q24H IV 03/29/24 11:00 03/30/24 18:44 4 MLS/HR Fentanyl Citrate 250 ml @ 2.5 mls/hr Q24H IV 03/29/24 11:00 03/30/24 19:23 7.5 MLS/HR Norepinephrine Bitartrate 250 ml @ 3.75 mls/hr Q24H IV 03/29/24 13:45 03/29/24 15:34 3.75 MLS/HR Amino Acids 0 ml @ 0 mls/hr PER PHARMACY IV 03/30/24 11:45 Diagnostic Test (Pha) 1 strip Q6HR 03/30/24 18:00 04/01/24 17:12 1 STRIP Insulin Human Regular FOLLOW SLIDING SCALE Q6HR SC 03/30/24 18:00 04/01/24 12:17 2 UNITS Dextrose 50 ml UD IV 03/30/24 15:45 Sodium Chloride 10 ml QSHIFT@10,22 IV 03/30/24 22:00 04/01/24 08:18 10 ML Fat Emulsion Intravenous 100 ml/Potassium Phosphate 44 meq/ Multivitamins 10 ml/Chromium/ Copper/Manganese/ Zinc 1 ml/Amino Acids/Dextrose/ Purified Water 1,221 ml @ 51 mls/hr [id number] IV 03/31/24 22:00 04/01/24 21:59 03/31/24 22:45 51 MLS/HR Pantoprazole Sodium 40 mg BID IV 03/31/24 22:00 04/01/24 08:17 40 MG Dexmedetomidine HCl 400 mcg/ Dextrose 100 ml @ 3.57 mls/hr Q24H IV 04/01/24 05:00 Fat Emulsion Intravenous 100 ml/Potassium Acetate 20 meq/ Potassium Phosphate 44 meq/ Calcium Gluconate 2.3 meq/Magnesium Sulfate 6 meq/ Multivitamins 10 ml/Chromium/ Copper/Manganese/ Zinc 1 ml/Amino Acids/Dextrose/ Purified Water 1,337.4462 ml @ 55 mls/hr [id number] IV 04/01/24 22:00 04/02/24 21:59 Hydromorphone HCl 0.25 mg Q4HPRN PRN IV 04/01/24 20:15 04/01/24 20:20 0.25 MG objective Gen.: Patient lying in bed in medical ICU. Intubated on mechanical ventilator. Head: Normocephalic, atraumatic. Eyes: PERRLA. Ears: Normal external anatomy. Throat: Endotracheal tube and orogastric tube in place. Neck: Supple, trachea midline. Chest: Transmitted breath sounds bilaterally. Decreased air entry bilaterally. No wheezing. Bibasilar crackles. Cardiovascular: Positive S1, positive S2. Regular rate and rhythm. Abdomen: Positive bowel sounds in all 4 quadrants. Soft, nontender, nondistended. : Childs in place. Normal external genitalia. Rectal: Deferred. Skin: Warm, dry. Intact. Extremities: 2+ radial pulses bilaterally. No lower extremity edema. Neuro: Off sedation laboratory and microbiology Laboratory Tests 04/01/24 03:40 Test 04/01/24 03:40 Range/Units Serum Glucose 125 H 74-106 mg/dL Assessment/Plan Impression: Acute hypoxic respiratory failure On mechanical ventilator Shock Aspiration pneumonia Bowel ischemia, s/p resection Severe mitral regurgitation Events: Vent support On AC mode; RR 16, VT 500 --> 450, PEEP 5, FiO2 30% VT reduced to 450 mL Off sedation Off pressors, hemodynamically stable ABG reviewed, notable for alkalemia CXR reviewed. Devices in place. Left basilar atelectasis. No pleural effusion. No pneumothorax. CPAP with PS 8, PEEP of 5, FiO2 30% Continue antibiotics IVF at 60 ml/hr TPN/Clinimix for nutritional support S/p therapeutic bronchoscopy on 03/30/24 - Mucous plugging from L6-L10; See separate procedure note for details. Labs and imaging reviewed. Rest of plan as noted below. Plan: s/p intubation on mechanical ventilator. On AC mode; RR 16, VT 500 --> 450, PEEP 5, FiO2 30% Titrate FIO2 to keep O2 saturation above 90%. VAP bundle. Daily ABG and CXR while intubated Off sedation Continue antibiotics. Pressors if necessary for hemodynamic support Titrate to keep mean arterial pressure greater than 65 mmHg. Monitor renal function Monitor electrolytes. Supplement as necessary. Monitor ins and outs. Maintain euvolemia. GI prophylaxis. DVT prophylaxis. Prognosis: Poor given patient's multiple co-morbidities. Condition: Critical Rest of plan per hospitalist and other consultants. A total of 35 minutes of critical care time was spent reviewing the patient record, examining the patient, making a diagnostic and therapeutic plan, discussing this plan with the medical personnel, following up on diagnostic studies and following the patient for clinical stability excluding any and all procedures. At least 50% of this time was spent in direct, [id number] contact. Thank you Dr. Roy for allowing me to participate in this patient's care. Further recommendations will depend on the patient's clinical course. Please do not hesitate to contact me if you have any questions or concerns. This medical document was created using an electronic medical record system with [employer] computerized dictation system. Although these documentations are being carefully reviewed, there may still be some phonetic and typographical changes. The errors are purely typographical, due to imperfection on the software program, and do not reflect any compromise in the patient's medical care. Dietary Evaluation Review Recommendations by RD: Increase Calorie Intake Comments: 1) Increase TPN to provide at least 75% daily estimated energy neeeds 2) Advance to cardiac diet when medically feasible, per PROTECTIVE SERVICE SPECIALIST approval. 3) Continue to monitor I&O and patient's weight. 4) Continue to monitor nutrition-related labs. Expected Outcomes/Goals: 1) TPN to meet at least 75% daily estimated energy needs 2) diet to advance 3) labs to improve 4) f/u in 2-3 days Plan discussed with: Other (ANNAMARIE Ramires) Critical Care Time(min): 35 CLARISA ARCHULETA MD Apr 01, 2024 21:38
[2024-04-01] MEDS: TPN PER PHARMACY IV NR (21:45)
[2024-04-02] VITALS (68 sets, daily range): BP systolic 107–171; BP diastolic 54–89; PULSE 70–100; RESP 12–31; TEMP 97.7–99.3; O2SAT 92–99
[2024-04-02 03:47] LABS: Hemoglobin 9.8 g/dL (13.5-17.5)
[2024-04-02 03:49] LABS: Hematocrit 29.6 % (41.0-53.0); Mean Corpuscular Hemoglobin 26.9 pg (28.0-32.0); Mean Corpuscular Hgb Conc. 33.2 g/dL (32.0-36.0); Platelet Count (auto) 156 10^3/uL (140-450); Red Blood Cells 3.65 10^6/uL (4.5-5.90); Red Cell Distribution Width 15.6 % (11.8-14.3); White Blood Cell 9.1 10^3/uL (4.4-10.8)
[2024-04-02 04:07] LABS: Alanine Aminotransferase 10 U/L (7-40); Albumin 3.2 g/dL (3.2-4.8); Alkaline Phosphatase 50 U/L (46-116); Anion Gap 6 (5-15); Aspartate Aminotransferase 15 U/L (13-40); BUN/Creatinine Ratio 27.9 (10.0-20.0); Bilirubin, Total 0.6 mg/dL (0.2-1.0); Blood Urea Nitrogen 17 mg/dL (9-23); Carbon Dioxide 24 mmol/L (20-31); Sodium 141 mmol/L (136-145)
[2024-04-02 04:11] LABS: Calcium 8.4 mg/dL (8.7-10.4); Chloride 111 mmol/L (98-107); Glucose 136 mg/dL (74-106); Phosphorus 2.1 mg/dL (2.4-5.1); Potassium 3.4 mmol/L (3.5-5.1)
[2024-04-02 04:17] LABS: Basophils % (manual) 0 (0.0-2.0); Blast Cells 0; Metamyelocytes % 0; Myelocytes % 0; Promyelocytes % 0; Reactive Lymphocytes 0
[2024-04-02 05:18] LABS: Band Neutrophils % (manual) 2; Eosinophils % (manual) 6 (0-7); Lymphocytes % (manual) 10 (10.0-50.0); Monocytes % (manual) 12 (0-12); Platelet Estimate Adequate
[2024-04-02 05:19] LABS: Hypochromia Slight
--- NOTE | 2024-04-02 05:38 | DVH ---
CHEST RADIOGRAPH Indication: Post extubation Technique: Single frontal view of the chest was obtained COMPARISON: XY CHEST PORTABLE on DOS: 04/01/24, XY CHEST PORTABLE on DOS: 03/31/24, XY CHEST PORTABLE on DOS: 03/30/24, XY CHEST XRAY 1 VIEW on DOS: 03/29/24, XY CHEST XRAY 1 VIEW on DOS: 03/27/24 FINDINGS: Lines and Tubes: Endotracheal tube, enteric catheter and left PICC in satisfactory position. Median sternotomy. Lungs: Multifocal airspace disease [id number]. Pleura: No effusion. No pneumothorax. Cardiomediastinal contours: Cardiomegaly Bones: Unremarkable IMPRESSION: Lines and tubes in satisfactory position. No significant interval change.
[2024-04-02] MEDS: POTASSIUM CHL 20MEQ/100ML 100 ML IV ONE (06:05)
[2024-04-02] MEDS ORDERED: LORazepam 2MG/ML-1ML VIAL IV PRN (10:15)
[2024-04-02 10:43] LABS: Urine Bacteria None Seen /hpf (None Seen)
[2024-04-02 11:12] LABS: Urine Blood 3+ /uL (Negative); Urine Clarity Turbid (Clear); Urine Color Light-Brown (Yellow); Urine Protein, UAD TRACE (Negative); Urine Specific Gravity 1.016 (1.001-1.035); Urine Squamous Epithelial Cell None Seen /hpf (<5); Urine Urobilinogen Normal (Negative); Urine WBC <1 /hpf (0 - 3); Urine pH 6.5 (5.0-9.0)
--- NOTE | 2024-04-02 14:03 | ECG ---
[facility] Test Date: 2024-03-27 Test Time: 15:05:18 Pat Name: RAMY SENIOR Department: er Room: [address] [place] [address] Gender: M Design Chief: moshe : 1940 Requested By: RACQUEL DIAZ Order Number: [id number] Reading MD: Measurements Intervals [place] Rate: 85 P: 46 IA: 148 QRS: 36 QRSD: 102 T: 1 QT: 394 QTc: 469 Interpretive Statements Sinus rhythm Atrial premature complex Low voltage, precordial leads Nonspecific T abnormalities, diffuse leads Baseline wander in lead(s) V1 Please click the below link to view image of tracing.
[2024-04-02] MEDS: SODIUM PHOSPHATES 20 MEQ in SODIUM CHL 0.9% 100 ML IV ONE (14:14)
--- NOTE | 2024-04-02 15:07 | DVHPN2 ---
Progress Note - Dictate Date Seen: Apr 02, 2024 Medical Necessity Reason Pt with a Central, PICC or Fol: No Subjective He is extubated yesterday. Overnight remained stable however continued to be confused and agitated requiring medications for agitation. vital signs Vital Sign Date Time Temp Pulse Resp B/P (MAP) Pulse Ox O2 Delivery O2 Flow Rate FiO2 04/02/24 13:43 16 94 Nasal Cannula* 4 36 04/02/24 13:43 74 04/02/24 13:30 99.1 112/58 (76) 210.4 Total Intake and Output 04/01/24 04/01/24 04/02/24 15:00 23:00 07:00 Intake Total 1134 ml 1345 ml 1095 ml Output Total 1450 ml 1750 ml Balance 1134 ml -105 ml -655 ml medications Current Medications Medications Dose Ordered Sig/Edin Route Start Time Stop Time Status Last Admin Dose Admin Sodium Chloride 1,000 ml @ 60 mls/hr [id number] IV 03/27/24 16:00 04/02/24 06:11 60 MLS/HR Ondansetron HCl 4 mg Q4HP PRN IV 03/27/24 16:00 03/28/24 07:32 4 MG Enoxaparin Sodium 40 mg DAILY SC 03/28/24 10:00 04/02/24 09:28 40 MG Nitroglycerin 0.4 mg Q5MINP PRN SL 03/27/24 16:00 Piperacillin Sod/ Tazobactam Sod 100 ml @ 25 mls/hr Q8H IV 03/28/24 00:00 04/02/24 08:46 25 MLS/HR Levetiracetam 100 ml @ 400 mls/hr BID IV 03/27/24 22:00 04/02/24 09:23 400 MLS/HR Ondansetron HCl 4 mg Q4HPRN PRN IV 03/27/24 16:30 UNV Midazolam HCl 50 ml @ 1 mls/hr Q24H IV 03/29/24 11:00 03/30/24 18:44 4 MLS/HR Fentanyl Citrate 250 ml @ 2.5 mls/hr Q24H IV 03/29/24 11:00 03/30/24 19:23 7.5 MLS/HR Norepinephrine Bitartrate 250 ml @ 3.75 mls/hr Q24H IV 03/29/24 13:45 03/29/24 15:34 3.75 MLS/HR Amino Acids 0 ml @ 0 mls/hr PER PHARMACY IV 03/30/24 11:45 Diagnostic Test (Pha) 1 strip Q6HR 03/30/24 18:00 04/02/24 11:46 1 STRIP Insulin Human Regular FOLLOW SLIDING SCALE Q6HR SC 03/30/24 18:00 04/02/24 11:48 2 UNITS Dextrose 50 ml UD IV 03/30/24 15:45 Sodium Chloride 10 ml QSHIFT@10,22 IV 03/30/24 22:00 04/02/24 09:25 10 ML Pantoprazole Sodium 40 mg BID IV 03/31/24 22:00 04/02/24 09:25 40 MG Dexmedetomidine HCl 400 mcg/ Dextrose 100 ml @ 3.57 mls/hr Q24H IV 04/01/24 05:00 Fat Emulsion Intravenous 100 ml/Potassium Acetate 20 meq/ Potassium Phosphate 44 meq/ Calcium Gluconate 2.3 meq/Magnesium Sulfate 6 meq/ Multivitamins 10 ml/Chromium/ Copper/Manganese/ Zinc 1 ml/Amino Acids/Dextrose/ Purified Water 1,337.4462 ml @ 55 mls/hr [id number] IV 04/01/24 22:00 04/02/24 21:59 04/01/24 21:45 55 MLS/HR Hydromorphone HCl 0.25 mg Q4HPRN PRN IV 04/01/24 20:15 04/02/24 11:35 0.25 MG Lorazepam 0.5 mg Q8HP PRN IV 04/02/24 10:15 Fat Emulsion Intravenous 150 ml/Potassium Acetate 30 meq/ Potassium Phosphate 50 meq/ Calcium Gluconate 2.3 meq/Magnesium Sulfate 10 meq/ Multivitamins 10 ml/Chromium/ Copper/Manganese/ Zinc 1 ml/Amino Acids/Dextrose 1,394.8098 ml @ 58 mls/hr Q24H3M IV 04/02/24 22:00 04/03/24 21:59 objective HEENT neck supple no JVD. Heart regular rate and rhythm S1-S2. Lungs fair air movement without any audible wheezing. Poor inspiratory effort, Abdomen soft hypoactive bowel sounds. Extremities no edema. laboratory and microbiology Laboratory Tests 04/02/24 03:00 Test 1/3/25 03:00 Range/Units Serum Glucose 136 H 74-106 mg/dL Assessment/Plan Acute hypoxemic respiratory failure postop Status post large bowel resection with end-to-end anastomosis due to bowel obstruction Postop hypotension on pressor Continue present management. Continue NPO and TPN as he is on. Continue rest of supportive care and treatment and keep him in the ICU or possible transfer to [facility]. Further clinical management per clinical course. Dietary Evaluation Review Recommendations by RD: Increase Calorie Intake Comments: 1) Increase TPN to provide at least 75% daily estimated energy neeeds 2) Advance to cardiac diet when medically feasible, per ENTERPRISE SOFTWARE ENGINEER approval. 3) Continue to monitor I&O and patient's weight. 4) Continue to monitor nutrition-related labs. Expected Outcomes/Goals: 1) TPN to meet at least 75% daily estimated energy needs 2) diet to advance 3) labs to improve 4) f/u in 2-3 days Plan discussed with: Other CORDELIA BARON MD Apr 02, 2024 15:07
--- NOTE | 2024-04-02 15:46 | DVHPN2 ---
Progress Note Date Seen: Apr 02, 2024 Medical Necessity Reason Pt with a Central, PICC or Fol: No Objective vital signs Vital Sign Date Time Temp Pulse Resp B/P (MAP) Pulse Ox O2 Delivery O2 Flow Rate FiO2 04/02/24 13:43 16 94 Nasal Cannula* 4 36 04/02/24 13:43 74 04/02/24 13:30 99.1 112/58 (76) 210.4 Total Intake and Output 04/01/24 04/01/24 04/02/24 15:00 23:00 07:00 Intake Total 1134 ml 1345 ml 1095 ml Output Total 1450 ml 1750 ml Balance 1134 ml -105 ml -655 ml medications Current Medications Medications Dose Ordered Sig/Edin Route Start Time Stop Time Status Last Admin Dose Admin Sodium Chloride 1,000 ml @ 60 mls/hr [id number] IV 03/27/24 16:00 04/02/24 06:11 60 MLS/HR Ondansetron HCl 4 mg Q4HP PRN IV 03/27/24 16:00 03/28/24 07:32 4 MG Enoxaparin Sodium 40 mg DAILY SC 03/28/24 10:00 04/02/24 09:28 40 MG Nitroglycerin 0.4 mg Q5MINP PRN SL 03/27/24 16:00 Piperacillin Sod/ Tazobactam Sod 100 ml @ 25 mls/hr Q8H IV 03/28/24 00:00 04/02/24 08:46 25 MLS/HR Levetiracetam 100 ml @ 400 mls/hr BID IV 03/27/24 22:00 04/02/24 09:23 400 MLS/HR Ondansetron HCl 4 mg Q4HPRN PRN IV 03/27/24 16:30 UNV Midazolam HCl 50 ml @ 1 mls/hr Q24H IV 03/29/24 11:00 03/30/24 18:44 4 MLS/HR Fentanyl Citrate 250 ml @ 2.5 mls/hr Q24H IV 03/29/24 11:00 03/30/24 19:23 7.5 MLS/HR Norepinephrine Bitartrate 250 ml @ 3.75 mls/hr Q24H IV 03/29/24 13:45 03/29/24 15:34 3.75 MLS/HR Amino Acids 0 ml @ 0 mls/hr PER PHARMACY IV 03/30/24 11:45 Diagnostic Test (Pha) 1 strip Q6HR 03/30/24 18:00 04/02/24 11:46 1 STRIP Insulin Human Regular FOLLOW SLIDING SCALE Q6HR SC 03/30/24 18:00 04/02/24 11:48 2 UNITS Dextrose 50 ml UD IV 03/30/24 15:45 Sodium Chloride 10 ml QSHIFT@10,22 IV 03/30/24 22:00 04/02/24 09:25 10 ML Pantoprazole Sodium 40 mg BID IV 03/31/24 22:00 04/02/24 09:25 40 MG Dexmedetomidine HCl 400 mcg/ Dextrose 100 ml @ 3.57 mls/hr Q24H IV 04/01/24 05:00 Fat Emulsion Intravenous 100 ml/Potassium Acetate 20 meq/ Potassium Phosphate 44 meq/ Calcium Gluconate 2.3 meq/Magnesium Sulfate 6 meq/ Multivitamins 10 ml/Chromium/ Copper/Manganese/ Zinc 1 ml/Amino Acids/Dextrose/ Purified Water 1,337.4462 ml @ 55 mls/hr [id number] IV 04/01/24 22:00 04/02/24 21:59 04/01/24 21:45 55 MLS/HR Hydromorphone HCl 0.25 mg Q4HPRN PRN IV 04/01/24 20:15 04/02/24 11:35 0.25 MG Lorazepam 0.5 mg Q8HP PRN IV 04/02/24 10:15 Fat Emulsion Intravenous 150 ml/Potassium Acetate 30 meq/ Potassium Phosphate 50 meq/ Calcium Gluconate 2.3 meq/Magnesium Sulfate 10 meq/ Multivitamins 10 ml/Chromium/ Copper/Manganese/ Zinc 1 ml/Amino Acids/Dextrose 1,394.8098 ml @ 58 mls/hr Q24H3M IV 04/02/24 22:00 04/03/24 21:59 laboratory and microbiology Laboratory Tests 04/02/24 03:00 Test 04/02/24 03:00 Range/Units Serum Glucose 136 H 74-106 mg/dL Microbiology Date/Time Source Procedure Growth Status 03/30/24 16:30 Bronchial Washings Gram Stain - Final Resulted 03/30/24 16:30 Bronchial Washings Respiratory Culture - Preliminary Resulted Problem List/Assessment/Plan Problem List/Assessment/Plan AFEBRILE VSS EXTUBATED ABD SOFT LESS DISTENDED NO BM FLATUS WOUND DRESSING IN PLACE CONTINUE CLOSE OBSERVATION PROGNOSIS GUARDED NURSE AT BEDSIDE Plan discussed with: Patient Dietary Evaluation Review Recommendations by RD: Increase Calorie Intake Comments: 1) Increase TPN to provide at least 75% daily estimated energy neeeds 2) Advance to cardiac diet when medically feasible, per TRAVEL ASSISTANT approval. 3) Continue to monitor I&O and patient's weight. 4) Continue to monitor nutrition-related labs. Expected Outcomes/Goals: 1) TPN to meet at least 75% daily estimated energy needs 2) diet to advance 3) labs to improve 4) f/u in 2-3 days RUFUS CHOE MD Apr 02, 2024 15:46
[2024-04-02] MEDS: TPN PER PHARMACY IV NR (21:18)
--- NOTE | 2024-04-02 23:30 | DVHPN2 ---
Progress Note - Dictate Date Seen: Apr 02, 2024 Medical Necessity Reason Pt with a Central, PICC or Fol: No Subjective Patient seen and examined at bedside. intubated on mechanical ventilator. Overnight events reviewed vital signs Vital Sign Date Time Temp Pulse Resp B/P (MAP) Pulse Ox O2 Delivery O2 Flow Rate FiO2 04/02/24 23:00 91 18 126/81 (96) 97 04/02/24 22:00 97.7 97.7 04/02/24 22:00 Nasal Cannula* 3 32 Total Intake and Output 04/01/24 04/01/24 04/02/24 15:00 23:00 07:00 Intake Total 1134 ml 1345 ml 1095 ml Output Total 1450 ml 1750 ml Balance 1134 ml -105 ml -655 ml medications Current Medications Medications Dose Ordered Sig/Edin Route Start Time Stop Time Status Last Admin Dose Admin Sodium Chloride 1,000 ml @ 60 mls/hr [id number] IV 03/27/24 16:00 04/02/24 17:08 60 MLS/HR Ondansetron HCl 4 mg Q4HP PRN IV 03/27/24 16:00 03/28/24 07:32 4 MG Enoxaparin Sodium 40 mg DAILY SC 03/28/24 10:00 04/02/24 09:28 40 MG Nitroglycerin 0.4 mg Q5MINP PRN SL 03/27/24 16:00 Piperacillin Sod/ Tazobactam Sod 100 ml @ 25 mls/hr Q8H IV 03/28/24 00:00 04/02/24 16:10 25 MLS/HR Levetiracetam 100 ml @ 400 mls/hr BID IV 03/27/24 22:00 04/02/24 09:23 400 MLS/HR Ondansetron HCl 4 mg Q4HPRN PRN IV 03/27/24 16:30 UNV Midazolam HCl 50 ml @ 1 mls/hr Q24H IV 03/29/24 11:00 03/30/24 18:44 4 MLS/HR Fentanyl Citrate 250 ml @ 2.5 mls/hr Q24H IV 03/29/24 11:00 03/30/24 19:23 7.5 MLS/HR Norepinephrine Bitartrate 250 ml @ 3.75 mls/hr Q24H IV 03/29/24 13:45 03/29/24 15:34 3.75 MLS/HR Amino Acids 0 ml @ 0 mls/hr PER PHARMACY IV 03/30/24 11:45 Diagnostic Test (Pha) 1 strip Q6HR 03/30/24 18:00 04/02/24 17:06 1 STRIP Insulin Human Regular FOLLOW SLIDING SCALE Q6HR SC 03/30/24 18:00 04/02/24 11:48 2 UNITS Dextrose 50 ml UD IV 03/30/24 15:45 Sodium Chloride 10 ml QSHIFT@10,22 IV 03/30/24 22:00 04/02/24 23:14 10 ML Pantoprazole Sodium 40 mg BID IV 03/31/24 22:00 04/02/24 23:14 40 MG Dexmedetomidine HCl 400 mcg/ Dextrose 100 ml @ 3.57 mls/hr Q24H IV 04/01/24 05:00 Hydromorphone HCl 0.25 mg Q4HPRN PRN IV 04/01/24 20:15 04/02/24 11:35 0.25 MG Lorazepam 0.5 mg Q8HP PRN IV 04/02/24 10:15 Fat Emulsion Intravenous 150 ml/Potassium Acetate 30 meq/ Potassium Phosphate 50 meq/ Calcium Gluconate 2.3 meq/Magnesium Sulfate 10 meq/ Multivitamins 10 ml/Chromium/ Copper/Manganese/ Zinc 1 ml/Amino Acids/Dextrose 1,394.8098 ml @ 58 mls/hr Q24H3M IV 04/02/24 22:00 04/03/24 21:59 04/02/24 21:18 58 MLS/HR objective Gen.: Patient lying in bed in medical ICU. Intubated on mechanical ventilator. Head: Normocephalic, atraumatic. Eyes: PERRLA. Ears: Normal external anatomy. Throat: Endotracheal tube and orogastric tube in place. Neck: Supple, trachea midline. Chest: Transmitted breath sounds bilaterally. Decreased air entry bilaterally. No wheezing. Bibasilar crackles. Cardiovascular: Positive S1, positive S2. Regular rate and rhythm. Abdomen: Positive bowel sounds in all 4 quadrants. Soft, nontender, nondistended. : Childs in place. Normal external genitalia. Rectal: Deferred. Skin: Warm, dry. Intact. Extremities: 2+ radial pulses bilaterally. No lower extremity edema. Neuro: Off sedation laboratory and microbiology Laboratory Tests 04/02/24 03:00 Test 04/02/24 03:00 Range/Units Serum Glucose 136 H 74-106 mg/dL Assessment/Plan Impression: Acute hypoxic respiratory failure On mechanical ventilator Shock Aspiration pneumonia Bowel ischemia, s/p resection Severe mitral regurgitation Events: Patient tolerated CPAP, underwent uneventful extubation yesterday Currently on supplemental O2 at 2 LPM NC Taper O2 as tolerated Off sedation Off pressors, hemodynamically stable Continue antibiotics IVF at 60 ml/hr TPN for nutritional support Incentive spirometry HOB elevation Aspiration precautions Patient is stable for downgrade from the pulmonary standpoint to DAVIN. S/p therapeutic bronchoscopy on 03/30/24 - Mucous plugging from L6-L10; See separate procedure note for details. Labs and imaging reviewed. Rest of plan as noted below. Plan: s/p extubation on 04/01/24 Supplemental oxygen Titrate to keep O2 sats above 90%. Off sedation Continue antibiotics. Pressors if necessary for hemodynamic support Titrate to keep mean arterial pressure greater than 65 mmHg. Monitor renal function Monitor electrolytes. Supplement as necessary. Monitor ins and outs. Maintain euvolemia. GI prophylaxis. DVT prophylaxis. Prognosis: Poor given patient's multiple co-morbidities. Condition: Critical Rest of plan per hospitalist and other consultants. A total of 35 minutes of critical care time was spent reviewing the patient record, examining the patient, making a diagnostic and therapeutic plan, discussing this plan with the medical personnel, following up on diagnostic studies and following the patient for clinical stability excluding any and all procedures. At least 50% of this time was spent in direct, [id number] contact. Thank you Dr. Roy for allowing me to participate in this patient's care. Further recommendations will depend on the patient's clinical course. Please do not hesitate to contact me if you have any questions or concerns. This medical document was created using an electronic medical record system with [employer] dictation system. Although these documentations are being carefully reviewed, there may still be some phonetic and typographical changes. The errors are purely typographical, due to imperfection on the software program, and do not reflect any compromise in the patient's medical care. Dietary Evaluation Review Recommendations by RD: Increase Calorie Intake Comments: 1) Increase TPN to provide at least 75% daily estimated energy neeeds 2) Advance to cardiac diet when medically feasible, per CLASSIFICATION OFFICER approval. 3) Continue to monitor I&O and patient's weight. 4) Continue to monitor nutrition-related labs. Expected Outcomes/Goals: 1) TPN to meet at least 75% daily estimated energy needs 2) diet to advance 3) labs to improve 4) f/u in 2-3 days Plan discussed with: Other (ANNAMARIE Bradshaw) Critical Care Time(min): 35 CLARISA ARCHULETA MD Apr 02, 2024 23:30
[2024-04-03] VITALS (35 sets, daily range): BP systolic 105–140; BP diastolic 66–82; PULSE 75–90; RESP 15–32; TEMP 97.6–99.2; O2SAT 90–99
[2024-04-03 05:39] LABS: Hemoglobin 9.3 g/dL (13.5-17.5)
[2024-04-03 05:42] LABS: Hematocrit 28.9 % (41.0-53.0); Mean Corpuscular Hemoglobin 26.3 pg (28.0-32.0); Mean Corpuscular Hgb Conc. 32.4 g/dL (32.0-36.0); Mean Corpuscular Volume 81.3 fL (80.0-100.0); Platelet Count (auto) 147 10^3/uL (140-450); Red Blood Cells 3.55 10^6/uL (4.5-5.90); Red Cell Distribution Width 16.3 % (11.8-14.3); White Blood Cell 9.3 10^3/uL (4.4-10.8)
[2024-04-03 05:47] LABS: Band Neutrophils % (manual) 0; Basophils % (manual) 0 (0.0-2.0); Blast Cells 0; Metamyelocytes % 0; Myelocytes % 0; Promyelocytes % 0; Reactive Lymphocytes 0
[2024-04-03 06:00] LABS: Alkaline Phosphatase 50 U/L (46-116); Anion Gap 7 (5-15); Aspartate Aminotransferase 16 U/L (13-40); BUN/Creatinine Ratio 30.6 (10.0-20.0); Bilirubin, Total 0.6 mg/dL (0.2-1.0); Blood Urea Nitrogen 15 mg/dL (9-23); Carbon Dioxide 21 mmol/L (20-31); Magnesium 1.7 mg/dL (1.6-2.6); Sodium 139 mmol/L (136-145)
[2024-04-03 06:02] LABS: Alanine Aminotransferase < 9 U/L (7-40); Albumin 2.7 g/dL (3.2-4.8); Calcium 7.3 mg/dL (8.7-10.4); Chloride 111 mmol/L (98-107); Glucose 158 mg/dL (74-106); Phosphorus 2.2 mg/dL (2.4-5.1); Potassium 3.3 mmol/L (3.5-5.1); Total Protein 4.3 g/dL (5.7-8.2)
[2024-04-03 06:52] LABS: Eosinophils % (manual) 7 (0-7); Lymphocytes % (manual) 14 (10.0-50.0); Monocytes % (manual) 17 (0-12); Ovalocytes FEW; Platelet Estimate Adequate
[2024-04-03] MEDS: POTASSIUM CHL 20MEQ/100ML 100 ML IV SCH (08:43)
[2024-04-03] MEDS: CALCIUM GLUC 1,000mg/50ml-NS 50 ML IV ONE (14:36)
--- NOTE | 2024-04-03 15:33 | DVHPN2 ---
Progress Note Date Seen: Apr 03, 2024 Medical Necessity Reason Pt with a Central, PICC or Fol: No Objective vital signs Vital Sign Date Time Temp Pulse Resp B/P (MAP) Pulse Ox O2 Delivery O2 Flow Rate FiO2 04/03/24 13:58 79 04/03/24 13:58 20 95 Nasal Cannula* 2 28 04/03/24 13:00 136/70 (92) Arterial Line 04/03/24 12:00 99.2 99.2 Total Intake and Output 04/02/24 04/02/24 04/03/24 15:00 23:00 07:00 Intake Total 1196.25 ml 848.50 ml 1468 ml Output Total 1400 ml 1350 ml Balance 1196.25 ml -551.50 ml 118 ml medications Current Medications Medications Dose Ordered Sig/Edin Route Start Time Stop Time Status Last Admin Dose Admin Sodium Chloride 1,000 ml @ 60 mls/hr [id number] IV 03/27/24 16:00 04/02/24 17:08 60 MLS/HR Ondansetron HCl 4 mg Q4HP PRN IV 03/27/24 16:00 03/28/24 07:32 4 MG Enoxaparin Sodium 40 mg DAILY SC 03/28/24 10:00 04/03/24 08:45 40 MG Nitroglycerin 0.4 mg Q5MINP PRN SL 03/27/24 16:00 Piperacillin Sod/ Tazobactam Sod 100 ml @ 25 mls/hr Q8H IV 03/28/24 00:00 04/03/24 08:43 25 MLS/HR Levetiracetam 100 ml @ 400 mls/hr BID IV 03/27/24 22:00 04/03/24 10:46 400 MLS/HR Ondansetron HCl 4 mg Q4HPRN PRN IV 03/27/24 16:30 UNV Midazolam HCl 50 ml @ 1 mls/hr Q24H IV 03/29/24 11:00 03/30/24 18:44 4 MLS/HR Fentanyl Citrate 250 ml @ 2.5 mls/hr Q24H IV 03/29/24 11:00 03/30/24 19:23 7.5 MLS/HR Norepinephrine Bitartrate 250 ml @ 3.75 mls/hr Q24H IV 03/29/24 13:45 03/29/24 15:34 3.75 MLS/HR Amino Acids 0 ml @ 0 mls/hr PER PHARMACY IV 03/30/24 11:45 Diagnostic Test (Pha) 1 strip Q6HR 03/30/24 18:00 04/03/24 11:40 1 STRIP Insulin Human Regular FOLLOW SLIDING SCALE Q6HR SC 03/30/24 18:00 04/03/24 11:39 2 UNITS Dextrose 50 ml UD IV 03/30/24 15:45 Sodium Chloride 10 ml QSHIFT@10,22 IV 03/30/24 22:00 04/03/24 08:44 10 ML Pantoprazole Sodium 40 mg BID IV 03/31/24 22:00 04/03/24 08:44 40 MG Dexmedetomidine HCl 400 mcg/ Dextrose 100 ml @ 3.57 mls/hr Q24H IV 04/01/24 05:00 Hydromorphone HCl 0.25 mg Q4HPRN PRN IV 04/01/24 20:15 04/02/24 11:35 0.25 MG Lorazepam 0.5 mg Q8HP PRN IV 04/02/24 10:15 Fat Emulsion Intravenous 150 ml/Potassium Acetate 30 meq/ Potassium Phosphate 50 meq/ Calcium Gluconate 2.3 meq/Magnesium Sulfate 10 meq/ Multivitamins 10 ml/Chromium/ Copper/Manganese/ Zinc 1 ml/Amino Acids/Dextrose 1,394.8098 ml @ 58 mls/hr Q24H3M IV 04/02/24 22:00 04/03/24 21:59 04/02/24 21:18 58 MLS/HR Fat Emulsion Intravenous 150 ml/Potassium Acetate 60 meq/ Potassium Phosphate 44 meq/ Calcium Gluconate 2.3 meq/Magnesium Sulfate 16 meq/ Multivitamins 10 ml/Chromium/ Copper/Manganese/ Zinc 1 ml/Amino Acids/Dextrose/ Purified Water 1,559.9462 ml @ 65 mls/hr Q24H IV 04/03/24 22:00 04/04/24 21:59 laboratory and microbiology Laboratory Tests 04/03/24 04:45 Test 04/03/24 04:45 Range/Units Serum Glucose 158 H 74-106 mg/dL Microbiology Date/Time Source Procedure Growth Status 04/02/24 10:11 Urine - [place] Urine Culture - Preliminary Resulted 03/30/24 16:30 Bronchial Washings Gram Stain - Final Complete 03/30/24 16:30 Bronchial Washings Respiratory Culture - Final Complete Problem List/Assessment/Plan Problem List/Assessment/Plan AFEBRILE VSS EXTUBATED ABD SOFT LESS DISTENDED BM + FLATUS WOUND DRESSING IN PLACE CONTINUE CLOSE OBSERVATION PROGNOSIS GUARDED NURSE AT BEDSIDE DC NG SWALLOW TEST Plan discussed with: Patient My Orders My Orders Orders - RUFUS CHOE MD Procedure Category Date Status Time Discontinue Ng ORDERS 04/03/24 Transmitted 14:07 Dietary Evaluation Review Recommendations by RD: Increase Calorie Intake Comments: 1) Increase TPN to provide at least 75% daily estimated energy neeeds 2) Advance to cardiac diet when medically feasible, per GREENHOUSE ASSISTANT approval. 3) Continue to monitor I&O and patient's weight. 4) Continue to monitor nutrition-related labs. Expected Outcomes/Goals: 1) TPN to meet at least 75% daily estimated energy needs 2) diet to advance 3) labs to improve 4) f/u in 2-3 days RUFUS CHOE MD Apr 03, 2024 15:33
--- NOTE | 2024-04-03 16:03 | DVHPN2 ---
Subjective Overnight events noted. Patient is status post exploratory laparotomy with a bowel resection, currently in DAVIN on 2-3 L of oxygen by nasal cannula. Can be downgraded to telemetry with a sitter. Patient has passed swallow evaluation and started on clear liquid diet still on TPN. Reviewed: Care Plan Changes from previous H/P or p: No Changes Objective Vitals Vital Signs Date Time Temp Pulse Resp B/P (MAP) Pulse Ox O2 Delivery O2 Flow Rate FiO2 04/03/24 13:58 79 04/03/24 13:58 20 95 Nasal Cannula* 2 28 04/03/24 13:00 136/70 (92) Arterial Line 04/03/24 12:00 99.2 99.2 Intake/Output Intake and Output 04/03/24 07:00 Intake Total 3512.75 ml Output Total 2750 ml Balance 762.75 ml Intake Oral 0 ml IV Total 3512.75 ml Output Urine Total 2300 ml Gastric Drainage Total 450 ml Exam HEENT pupils are reactive Neck is supple CV is S1-S2 regular rate and rhythm Respiratory diminished breath sounds bases GI positive bowel sounds sluggish extremities no edema PHYSICIAN CREDENTIALING SPECIALIST following commands Medications Current Medications Medications Dose Ordered Sig/Edin Route Start Time Stop Time Status Last Admin Dose Admin Sodium Chloride 1,000 ml @ 60 mls/hr [id number] IV 03/27/24 16:00 04/02/24 17:08 60 MLS/HR Ondansetron HCl 4 mg Q4HP PRN IV 03/27/24 16:00 03/28/24 07:32 4 MG Enoxaparin Sodium 40 mg DAILY SC 03/28/24 10:00 04/03/24 08:45 40 MG Nitroglycerin 0.4 mg Q5MINP PRN SL 03/27/24 16:00 Piperacillin Sod/ Tazobactam Sod 100 ml @ 25 mls/hr Q8H IV 03/28/24 00:00 04/03/24 15:47 25 MLS/HR Levetiracetam 100 ml @ 400 mls/hr BID IV 03/27/24 22:00 04/03/24 10:46 400 MLS/HR Ondansetron HCl 4 mg Q4HPRN PRN IV 03/27/24 16:30 UNV Midazolam HCl 50 ml @ 1 mls/hr Q24H IV 03/29/24 11:00 03/30/24 18:44 4 MLS/HR Fentanyl Citrate 250 ml @ 2.5 mls/hr Q24H IV 03/29/24 11:00 03/30/24 19:23 7.5 MLS/HR Norepinephrine Bitartrate 250 ml @ 3.75 mls/hr Q24H IV 03/29/24 13:45 03/29/24 15:34 3.75 MLS/HR Amino Acids 0 ml @ 0 mls/hr PER PHARMACY IV 03/30/24 11:45 Diagnostic Test (Pha) 1 strip Q6HR 03/30/24 18:00 04/03/24 11:40 1 STRIP Insulin Human Regular FOLLOW SLIDING SCALE Q6HR SC 03/30/24 18:00 04/03/24 11:39 2 UNITS Dextrose 50 ml UD IV 03/30/24 15:45 Sodium Chloride 10 ml QSHIFT@10,22 IV 03/30/24 22:00 04/03/24 08:44 10 ML Pantoprazole Sodium 40 mg BID IV 03/31/24 22:00 04/03/24 08:44 40 MG Dexmedetomidine HCl 400 mcg/ Dextrose 100 ml @ 3.57 mls/hr Q24H IV 04/01/24 05:00 Hydromorphone HCl 0.25 mg Q4HPRN PRN IV 04/01/24 20:15 04/02/24 11:35 0.25 MG Lorazepam 0.5 mg Q8HP PRN IV 04/02/24 10:15 Fat Emulsion Intravenous 150 ml/Potassium Acetate 30 meq/ Potassium Phosphate 50 meq/ Calcium Gluconate 2.3 meq/Magnesium Sulfate 10 meq/ Multivitamins 10 ml/Chromium/ Copper/Manganese/ Zinc 1 ml/Amino Acids/Dextrose 1,394.8098 ml @ 58 mls/hr Q24H3M IV 04/02/24 22:00 04/03/24 21:59 04/02/24 21:18 58 MLS/HR Fat Emulsion Intravenous 150 ml/Potassium Acetate 60 meq/ Potassium Phosphate 44 meq/ Calcium Gluconate 2.3 meq/Magnesium Sulfate 16 meq/ Multivitamins 10 ml/Chromium/ Copper/Manganese/ Zinc 1 ml/Amino Acids/Dextrose/ Purified Water 1,559.9462 ml @ 65 mls/hr Q24H IV 04/03/24 22:00 1/5/25 21:59 Laboratory Results Laboratory Tests 04/03/24 04:45 Chemistry Test 04/03/24 04:45 Albumin 2.7 g/dL (3.2-4.8) L Calcium Level 7.3 mg/dL (8.7-10.4) L Magnesium Level 1.7 mg/dL (1.6-2.6) Phosphorus Level 2.2 mg/dL (2.4-5.1) L Total Protein 4.3 g/dL (5.7-8.2) L LFT Test 04/03/24 04:45 Alanine Aminotransferase (ALT) < 9 U/L (7-40) Alkaline Phosphatase 50 U/L (46-116) Aspartate Amino Transferase (AST) 16 U/L (13-40) Total Bilirubin 0.6 mg/dL (0.2-1.0) Urinalysis Test 03/26/24 20:30 04/02/24 10:11 Urine Mucus Few (None Seen) Urine Color Light-brown (Yellow) Urine Clarity Turbid (Clear) H Urine pH 6.5 (5.0-9.0) Urine Specific [place] 1.016 (1.001-1.035) Urine Protein Trace (Negative) H Urine Ketones Negative (Negative) Urine Blood 3+ /uL (Negative) H Urine Nitrite Negative (Negative) Urine Bilirubin Negative (Negative) Urine Urobilinogen Normal mg/dL (Negative) Urine Leukocyte Esterase 1+ /uL (Negative) Urine RBC 10 /hpf (0 - 3) Urine WBC <1 /hpf (0 - 3) Urine Squamous Epithelial Cells None seen /hpf (<5) Urine Bacteria None seen /hpf (None Seen) Urine Glucose Normal mg/dL (Normal) Microbiology Microbiology Date/Time Source Procedure Growth Status 04/02/24 10:11 Urine - [place] Urine Culture - Preliminary Resulted 03/30/24 16:30 Bronchial Washings Gram Stain - Final Complete 03/30/24 16:30 Bronchial Washings Respiratory Culture - Final Complete Assessment/Plan Assessment/Plan 83-year-old male with known history of coronary artery disease status post one- vessel CABG, seizure disorder, previous history of multiple inguinal hernia surgery presented to the hospital with the abdominal pain nausea vomiting found to have 1. Small bowel obstruction with adhesions at the previous operative site status post exploratory laparotomy with bowel resection and primary end-to-end anastomosis 2. Acute hypoxic respiratory failure postop intubated, extubated, currently on nasal cannula 3. Coronary artery disease status post one-vessel CABG 4. Seizure disorder 5. Hypertension 6. Acute delirium currently resolved -continue TPN, start clear liquid diet as patient has a BM -follow up Pulmonary recommendation -follow up General surgery -plan of care discussed with the patient's bedside RN. -may downgraded to telemetry with a sitter Plan discussed with: Patient, Other My Orders Orders - CHEIKH GUIDRY MD Procedure Category Date Status Time Transfer Orders XFER 04/03/24 Transmitted 14:57 Pt Request For Service PT 04/03/24 Logged 14:57 Date of Service: Apr 03, 2024 Billing Provider: CHEIKH GUIDRY MD Common Visit Codes: NOT BILLABLE CHEIKH GUIDRY MD Apr 03, 2024 16:03
[2024-04-03] MEDS: SODIUM PHOSPHATES 20 MEQ in SODIUM CHL 0.9% 100 ML IV ONE (17:26)
[2024-04-03] MEDS: TPN PER PHARMACY IV NR (21:48)
--- NOTE | 2024-04-03 22:00 | DVHPN2 ---
Progress Note - Dictate Date Seen: Apr 03, 2024 Medical Necessity Reason Pt with a Central, PICC or Fol: No Subjective Patient seen and examined at bedside. on supplemental oxygen Overnight events reviewed vital signs Vital Sign Date Time Temp Pulse Resp B/P (MAP) Pulse Ox O2 Delivery O2 Flow Rate FiO2 04/03/24 20:45 81 18 98 04/03/24 20:00 97.6 97.6 04/03/24 20:00 Nasal Cannula* 2 28 Total Intake and Output 04/02/24 04/02/24 04/03/24 15:00 23:00 07:00 Intake Total 1196.25 ml 848.50 ml 1468 ml Output Total 1400 ml 1350 ml Balance 1196.25 ml -551.50 ml 118 ml medications Current Medications Medications Dose Ordered Sig/Edin Route Start Time Stop Time Status Last Admin Dose Admin Sodium Chloride 1,000 ml @ 60 mls/hr [id number] IV 03/27/24 16:00 04/03/24 14:40 60 MLS/HR Ondansetron HCl 4 mg Q4HP PRN IV 03/27/24 16:00 03/28/24 07:32 4 MG Enoxaparin Sodium 40 mg DAILY SC 03/28/24 10:00 04/03/24 08:45 40 MG Nitroglycerin 0.4 mg Q5MINP PRN SL 03/27/24 16:00 Piperacillin Sod/ Tazobactam Sod 100 ml @ 25 mls/hr Q8H IV 03/28/24 00:00 04/03/24 15:47 25 MLS/HR Levetiracetam 100 ml @ 400 mls/hr BID IV 03/27/24 22:00 04/03/24 21:42 400 MLS/HR Ondansetron HCl 4 mg Q4HPRN PRN IV 03/27/24 16:30 UNV Midazolam HCl 50 ml @ 1 mls/hr Q24H IV 03/29/24 11:00 03/30/24 18:44 4 MLS/HR Fentanyl Citrate 250 ml @ 2.5 mls/hr Q24H IV 03/29/24 11:00 03/30/24 19:23 7.5 MLS/HR Norepinephrine Bitartrate 250 ml @ 3.75 mls/hr Q24H IV 03/29/24 13:45 03/29/24 15:34 3.75 MLS/HR Amino Acids 0 ml @ 0 mls/hr PER PHARMACY IV 03/30/24 11:45 Diagnostic Test (Pha) 1 strip Q6HR 03/30/24 18:00 04/03/24 18:12 1 STRIP Insulin Human Regular FOLLOW SLIDING SCALE Q6HR SC 03/30/24 18:00 04/03/24 18:13 2 UNITS Dextrose 50 ml UD IV 03/30/24 15:45 Sodium Chloride 10 ml QSHIFT@10,22 IV 03/30/24 22:00 04/03/24 08:44 10 ML Pantoprazole Sodium 40 mg BID IV 03/31/24 22:00 04/03/24 21:42 40 MG Dexmedetomidine HCl 400 mcg/ Dextrose 100 ml @ 3.57 mls/hr Q24H IV 04/01/24 05:00 Hydromorphone HCl 0.25 mg Q4HPRN PRN IV 04/01/24 20:15 04/02/24 11:35 0.25 MG Lorazepam 0.5 mg Q8HP PRN IV 04/02/24 10:15 Fat Emulsion Intravenous 150 ml/Potassium Acetate 30 meq/ Potassium Phosphate 50 meq/ Calcium Gluconate 2.3 meq/Magnesium Sulfate 10 meq/ Multivitamins 10 ml/Chromium/ Copper/Manganese/ Zinc 1 ml/Amino Acids/Dextrose 1,394.8098 ml @ 58 mls/hr Q24H3M IV 04/02/24 22:00 04/03/24 21:59 04/02/24 21:18 58 MLS/HR Fat Emulsion Intravenous 150 ml/Potassium Acetate 60 meq/ Potassium Phosphate 44 meq/ Calcium Gluconate 2.3 meq/Magnesium Sulfate 16 meq/ Multivitamins 10 ml/Chromium/ Copper/Manganese/ Zinc 1 ml/Amino Acids/Dextrose/ Purified Water 1,559.9462 ml @ 65 mls/hr Q24H IV 04/03/24 22:00 04/04/24 21:59 04/03/24 21:48 65 MLS/HR objective Gen.: Patient lying in bed in medical ICU. Intubated on mechanical ventilator. Head: Normocephalic, atraumatic. Eyes: PERRLA. Ears: Normal external anatomy. Throat: Endotracheal tube and orogastric tube in place. Neck: Supple, trachea midline. Chest: Transmitted breath sounds bilaterally. Decreased air entry bilaterally. No wheezing. Bibasilar crackles. Cardiovascular: Positive S1, positive S2. Regular rate and rhythm. Abdomen: Positive bowel sounds in all 4 quadrants. Soft, nontender, nondistended. : Childs in place. Normal external genitalia. Rectal: Deferred. Skin: Warm, dry. Intact. Extremities: 2+ radial pulses bilaterally. No lower extremity edema. Neuro: Off sedation laboratory and microbiology Laboratory Tests 04/03/24 04:45 Test 04/03/24 04:45 Range/Units Serum Glucose 158 H 74-106 mg/dL Assessment/Plan Impression: Acute hypoxic respiratory failure On mechanical ventilator Shock, resolved Aspiration pneumonia Bowel ischemia, s/p resection Severe mitral regurgitation Events: On 2 liters/minute via nasal cannula Diet advanced to clear liquids. Advance diet per surgery. Continue antibiotics Potassium supplemented TPN for nutritional support, taper as patient reaches nutritional goal. Incentive spirometry HOB elevation Aspiration precautions Continue antiepileptics Patient is stable for downgrade from the pulmonary standpoint to telemetry. Labs and imaging reviewed. Rest of plan as noted below. Plan: s/p extubation on 04/01/24 Supplemental oxygen Titrate to keep O2 sats above 90%. Continue antibiotics. Monitor renal function Monitor electrolytes. Supplement as necessary. Monitor ins and outs. Maintain euvolemia. GI prophylaxis. DVT prophylaxis. Prognosis: Poor given patient's multiple co-morbidities. Condition: Critical Rest of plan per hospitalist and other consultants. A total of 35 minutes of critical care time was spent reviewing the patient record, examining the patient, making a diagnostic and therapeutic plan, discussing this plan with the medical personnel, following up on diagnostic studies and following the patient for clinical stability excluding any and all procedures. At least 50% of this time was spent in direct, [id number] contact. Thank you Dr. Roy for allowing me to participate in this patient's care. Further recommendations will depend on the patient's clinical course. Please do not hesitate to contact me if you have any questions or concerns. This medical document was created using an electronic medical record system with [employer] system. Although these documentations are being carefully reviewed, there may still be some phonetic and typographical changes. The errors are purely typographical, due to imperfection on the software program, and do not reflect any compromise in the patient's medical care. Dietary Evaluation Review Recommendations by RD: Increase Calorie Intake Comments: 1) Increase TPN to provide at least 75% daily estimated energy neeeds 2) Advance to cardiac diet when medically feasible, per RUNNING SPECIALIST approval. 3) Continue to monitor I&O and patient's weight. 4) Continue to monitor nutrition-related labs. Expected Outcomes/Goals: 1) TPN to meet at least 75% daily estimated energy needs 2) diet to advance 3) labs to improve 4) f/u in 2-3 days Plan discussed with: Other (ANNAMARIE Ruggiero MD) CLARISA ARCHULETA MD Apr 03, 2024 22:00
[2024-04-04] VITALS (7 sets, daily range): BP systolic 103–134; BP diastolic 57–73; PULSE 76–96; RESP 18–22; TEMP 97.7–98.3; O2SAT 94–97
[2024-04-04 07:36] LABS: Alanine Aminotransferase 15 U/L (7-40); Alkaline Phosphatase 70 U/L (46-116); Anion Gap 7 (5-15); Blood Urea Nitrogen 17 mg/dL (9-23); Carbon Dioxide 22 mmol/L (20-31); Chloride 105 mmol/L (98-107); Magnesium 2.1 mg/dL (1.6-2.6); Potassium 4.6 mmol/L (3.5-5.1)
[2024-04-04 07:37] LABS: Aspartate Aminotransferase 23 U/L (13-40); Calcium 8.5 mg/dL (8.7-10.4); Glucose 124 mg/dL (74-106); Sodium 134 mmol/L (136-145)
[2024-04-04 07:38] LABS: Albumin 3.1 g/dL (3.2-4.8); Bilirubin, Total 0.6 mg/dL (0.2-1.0); Phosphorus 3.1 mg/dL (2.4-5.1)
[2024-04-04 07:43] LABS: Total Protein 5.1 g/dL (5.7-8.2)
--- NOTE | 2024-04-04 11:59 | DVHPN2 ---
Progress Note Date Seen: Apr 04, 2024 Medical Necessity Reason Pt with a Central, PICC or Fol: No Objective vital signs Vital Sign Date Time Temp Pulse Resp B/P (MAP) Pulse Ox O2 Delivery O2 Flow Rate FiO2 04/04/24 09:00 97.7 90 20 120/73 (89) 96 97.7 04/03/24 22:00 Nasal Cannula* 2 28 Total Intake and Output 04/03/24 04/03/24 04/04/24 15:00 23:00 07:00 Intake Total 1276 ml 1389.50 ml 1295 ml Output Total 1150 ml 1150 ml Balance 1276 ml 239.50 ml 145 ml medications Current Medications Medications Dose Ordered Sig/Edin Route Start Time Stop Time Status Last Admin Dose Admin Sodium Chloride 1,000 ml @ 60 mls/hr [id number] IV 03/27/24 16:00 04/04/24 05:03 60 MLS/HR Ondansetron HCl 4 mg Q4HP PRN IV 03/27/24 16:00 03/28/24 07:32 4 MG Enoxaparin Sodium 40 mg DAILY SC 03/28/24 10:00 04/04/24 11:00 40 MG Nitroglycerin 0.4 mg Q5MINP PRN SL 03/27/24 16:00 Piperacillin Sod/ Tazobactam Sod 100 ml @ 25 mls/hr Q8H IV 03/28/24 00:00 04/04/24 08:03 25 MLS/HR Levetiracetam 100 ml @ 400 mls/hr BID IV 03/27/24 22:00 04/04/24 10:59 400 MLS/HR Ondansetron HCl 4 mg Q4HPRN PRN IV 03/27/24 16:30 UNV Midazolam HCl 50 ml @ 1 mls/hr Q24H IV 03/29/24 11:00 Hold 03/30/24 18:44 4 MLS/HR Fentanyl Citrate 250 ml @ 2.5 mls/hr Q24H IV 03/29/24 11:00 Hold 03/30/24 19:23 7.5 MLS/HR Norepinephrine Bitartrate 250 ml @ 3.75 mls/hr Q24H IV 03/29/24 13:45 Hold 03/29/24 15:34 3.75 MLS/HR Amino Acids 0 ml @ 0 mls/hr PER PHARMACY IV 03/30/24 11:45 Diagnostic Test (Pha) 1 strip Q6HR 03/30/24 18:00 04/04/24 05:36 1 STRIP Insulin Human Regular FOLLOW SLIDING SCALE Q6HR SC 03/30/24 18:00 04/04/24 05:36 2 UNITS Dextrose 50 ml UD IV 03/30/24 15:45 Sodium Chloride 10 ml QSHIFT@10,22 IV 03/30/24 22:00 04/04/24 10:59 10 ML Pantoprazole Sodium 40 mg BID IV 03/31/24 22:00 04/04/24 10:59 40 MG Dexmedetomidine HCl 400 mcg/ Dextrose 100 ml @ 3.57 mls/hr Q24H IV 04/01/24 05:00 Hold Hydromorphone HCl 0.25 mg Q4HPRN PRN IV 04/01/24 20:15 04/02/24 11:35 0.25 MG Lorazepam 0.5 mg Q8HP PRN IV 04/02/24 10:15 Fat Emulsion Intravenous 150 ml/Potassium Acetate 60 meq/ Potassium Phosphate 44 meq/ Calcium Gluconate 2.3 meq/Magnesium Sulfate 16 meq/ Multivitamins 10 ml/Chromium/ Copper/Manganese/ Zinc 1 ml/Amino Acids/Dextrose/ Purified Water 1,559.9462 ml @ 65 mls/hr Q24H IV 04/03/24 22:00 04/04/24 21:59 04/03/24 21:48 65 MLS/HR Fat Emulsion Intravenous 150 ml/Sodium Acetate 60 meq/Sodium Phosphate 40 meq/ Calcium Gluconate 2.3 meq/Magnesium Sulfate 12 meq/ Multivitamins 10 ml/Chromium/ Copper/Manganese/ Zinc 1 ml/Amino Acids/Dextrose/ Purified Water 1,558.9462 ml @ 65 mls/hr Q24H IV 04/04/24 22:00 04/05/24 21:59 laboratory and microbiology Laboratory Tests 04/04/24 06:10 04/03/24 04:45 Test 04/04/24 06:10 Range/Units Serum Glucose 124 H 74-106 mg/dL Microbiology Date/Time Source Procedure Growth Status 04/02/24 10:11 Urine - [place] Urine Culture - Preliminary Resulted 03/30/24 16:30 Bronchial Washings Gram Stain - Final Complete 03/30/24 16:30 Bronchial Washings Respiratory Culture - Final Complete Problem List/Assessment/Plan Problem List/Assessment/Plan AFEBRILE VSS EXTUBATED ABD SOFT LESS DISTENDED BM + FLATUS WOUND DRESSING IN PLACE CONTINUE CLOSE OBSERVATION ADVANCE DIET MICHAEL Plan discussed with: Patient My Orders My Orders Orders - RUFUS CHOE MD Procedure Category Date Status Time Discontinue Ng ORDERS 04/03/24 Transmitted 14:07 Clear Liq Diet DIET 04/03/24 Transmitted Dinner Dietary Evaluation Review Recommendations by RD: Increase Calorie Intake Comments: 1) Increase TPN to provide at least 75% daily estimated energy neeeds 2) Advance to cardiac diet when medically feasible, per DIE DESIGNER APPRENTICE approval. 3) Continue to monitor I&O and patient's weight. 4) Continue to monitor nutrition-related labs. Expected Outcomes/Goals: 1) TPN to meet at least 75% daily estimated energy needs 2) diet to advance 3) labs to improve 4) f/u in 2-3 days RUFUS CHOE MD Apr 04, 2024 11:59
--- NOTE | 2024-04-04 17:30 | DVHPN2 ---
Subjective Overnight events noted. Patient is status post exploratory laparotomy with a bowel resection, currently in [place] on 2-3 L of oxygen by nasal cannula. Can be downgraded to telemetry with a sitter. Patient has passed swallow evaluation and started on clear liquid diet still on TPN. Patient is still not eating yet. He already had to three bowel movements. Reviewed: Care Plan Changes from previous H/P or p: No Changes Objective Vitals Vital Signs Date Time Temp Pulse Resp B/P (MAP) Pulse Ox O2 Delivery O2 Flow Rate FiO2 04/04/24 13:33 80 16 108/68 04/04/24 12:47 98.3 94 98.3 04/04/24 08:00 Nasal Cannula* 2 28 Intake/Output Intake and Output 04/04/24 07:00 Intake Total 3960.50 ml Output Total 2300 ml Balance 1660.50 ml Intake Oral 320 ml IV Total 3640.50 ml Output Urine Total 2300 ml Gastric Drainage Total 0 ml # Bowel Movements 7 Exam HEENT pupils are reactive Neck is supple CV is S1-S2 regular rate and rhythm Respiratory diminished breath sounds bases GI positive bowel sounds sluggish extremities no edema 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 Medications Current Medications Medications Dose Ordered Sig/Edin Route Start Time Stop Time Status Last Admin Dose Admin Sodium Chloride 1,000 ml @ 60 mls/hr [id number] IV 03/27/24 16:00 04/04/24 05:03 60 MLS/HR Ondansetron HCl 4 mg Q4HP PRN IV 03/27/24 16:00 03/28/24 07:32 4 MG Enoxaparin Sodium 40 mg DAILY SC 03/28/24 10:00 04/04/24 11:00 40 MG Nitroglycerin 0.4 mg Q5MINP PRN SL 03/27/24 16:00 Piperacillin Sod/ Tazobactam Sod 100 ml @ 25 mls/hr Q8H IV 03/28/24 00:00 04/04/24 16:33 25 MLS/HR Levetiracetam 100 ml @ 400 mls/hr BID IV 03/27/24 22:00 04/04/24 10:59 400 MLS/HR Ondansetron HCl 4 mg Q4HPRN PRN IV 03/27/24 16:30 UNV Midazolam HCl 50 ml @ 1 mls/hr Q24H IV 03/29/24 11:00 Hold 03/30/24 18:44 4 MLS/HR Fentanyl Citrate 250 ml @ 2.5 mls/hr Q24H IV 03/29/24 11:00 Hold 03/30/24 19:23 7.5 MLS/HR Norepinephrine Bitartrate 250 ml @ 3.75 mls/hr Q24H IV 03/29/24 13:45 Hold 03/29/24 15:34 3.75 MLS/HR Amino Acids 0 ml @ 0 mls/hr PER PHARMACY IV 03/30/24 11:45 Diagnostic Test (Pha) 1 strip Q6HR 03/30/24 18:00 04/04/24 17:08 1 STRIP Insulin Human Regular FOLLOW SLIDING SCALE Q6HR SC 03/30/24 18:00 04/04/24 12:37 2 UNITS Dextrose 50 ml UD IV 03/30/24 15:45 Sodium Chloride 10 ml QSHIFT@10,22 IV 03/30/24 22:00 04/04/24 10:59 10 ML Pantoprazole Sodium 40 mg BID IV 03/31/24 22:00 04/04/24 10:59 40 MG Dexmedetomidine HCl 400 mcg/ Dextrose 100 ml @ 3.57 mls/hr Q24H IV 04/01/24 05:00 Hold Hydromorphone HCl 0.25 mg Q4HPRN PRN IV 04/01/24 20:15 04/04/24 12:37 0.25 MG Lorazepam 0.5 mg Q8HP PRN IV 04/02/24 10:15 Fat Emulsion Intravenous 150 ml/Potassium Acetate 60 meq/ Potassium Phosphate 44 meq/ Calcium Gluconate 2.3 meq/Magnesium Sulfate 16 meq/ Multivitamins 10 ml/Chromium/ Copper/Manganese/ Zinc 1 ml/Amino Acids/Dextrose/ Purified Water 1,559.9462 ml @ 65 mls/hr Q24H IV 04/03/24 22:00 04/04/24 21:59 04/03/24 21:48 65 MLS/HR Fat Emulsion Intravenous 150 ml/Sodium Acetate 60 meq/Sodium Phosphate 40 meq/ Calcium Gluconate 2.3 meq/Magnesium Sulfate 12 meq/ Multivitamins 10 ml/Chromium/ Copper/Manganese/ Zinc 1 ml/Amino Acids/Dextrose/ Purified Water 1,558.9462 ml @ 65 mls/hr Q24H IV 04/04/24 22:00 04/05/24 21:59 Laboratory Results Laboratory Tests 04/03/24 04:45 04/04/24 06:10 Chemistry Test 04/04/24 06:10 Albumin 3.1 g/dL (3.2-4.8) L Calcium Level 8.5 mg/dL (8.7-10.4) L Magnesium Level 2.1 mg/dL (1.6-2.6) Phosphorus Level 3.1 mg/dL (2.4-5.1) Total Protein 5.1 g/dL (5.7-8.2) L LFT Test 04/04/24 06:10 Alanine Aminotransferase (ALT) 15 U/L (7-40) Alkaline Phosphatase 70 U/L (46-116) Aspartate Amino Transferase (AST) 23 U/L (13-40) Total Bilirubin 0.6 mg/dL (0.2-1.0) Urinalysis Test 03/26/24 20:30 04/02/24 10:11 Urine Mucus Few (None Seen) Urine Color Light-brown (Yellow) Urine Clarity Turbid (Clear) H Urine pH 6.5 (5.0-9.0) Urine Specific [place] 1.016 (1.001-1.035) Urine Protein Trace (Negative) H Urine Ketones Negative (Negative) Urine Blood 3+ /uL (Negative) H Urine Nitrite Negative (Negative) Urine Bilirubin Negative (Negative) Urine Urobilinogen Normal mg/dL (Negative) Urine Leukocyte Esterase 1+ /uL (Negative) Urine RBC 10 /hpf (0 - 3) Urine WBC <1 /hpf (0 - 3) Urine Squamous Epithelial Cells None seen /hpf (<5) Urine Bacteria None seen /hpf (None Seen) Urine Glucose Normal mg/dL (Normal) Microbiology Microbiology Date/Time Source Procedure Growth Status 04/02/24 10:11 Urine - [place] Urine Culture - Final Complete 03/30/24 16:30 Bronchial Washings Gram Stain - Final Complete 03/30/24 16:30 Bronchial Washings Respiratory Culture - Final Complete Assessment/Plan Assessment/Plan 83-year-old male with known history of coronary artery disease status post one- vessel CABG, seizure disorder, previous history of multiple inguinal hernia surgery presented to the hospital with the abdominal pain nausea vomiting found to have 1. Small bowel obstruction with adhesions at the previous operative site status post exploratory laparotomy with bowel resection and primary end-to-end anastomosis 2. Acute hypoxic respiratory failure postop intubated, extubated, currently on nasal cannula 3. Coronary artery disease status post one-vessel CABG 4. Seizure disorder 5. Hypertension 6. Acute delirium currently resolved -continue TPN, start clear liquid diet as patient has a BM -follow up Pulmonary recommendation -follow up General surgery -plan of care discussed with the patient's bedside RN. -may downgraded to telemetry with a sitter Plan discussed with: Patient, Spouse Date of Service: Apr 04, 2024 Billing Provider: CHEIKH GUIDRY MD Common Visit Codes: NOT BILLABLE CHEIKH GUIDRY MD Apr 04, 2024 17:30
[2024-04-04] MEDS: TPN PER PHARMACY IV NR (22:50)
--- NOTE | 2024-04-04 23:32 | DVHPN2 ---
Progress Note - Dictate Date Seen: Apr 04, 2024 Medical Necessity Reason Pt with a Central, PICC or Fol: Yes The following are medically ne: Delong Catheter Reason for delong catheter: Strict I&O Subjective Patient seen and examined at bedside. on supplemental oxygen Overnight events reviewed vital signs Vital Sign Date Time Temp Pulse Resp B/P (MAP) Pulse Ox O2 Delivery O2 Flow Rate FiO2 04/04/24 21:00 98.3 83 18 103/57 (72) 97 98.3 04/04/24 20:00 Nasal Cannula* 2 28 Total Intake and Output 04/03/24 04/03/24 04/04/24 15:00 23:00 07:00 Intake Total 1276 ml 1389.50 ml 1295 ml Output Total 1150 ml 1150 ml Balance 1276 ml 239.50 ml 145 ml medications Current Medications Medications Dose Ordered Sig/Edin Route Start Time Stop Time Status Last Admin Dose Admin Sodium Chloride 1,000 ml @ 60 mls/hr [id number] IV 03/27/24 16:00 04/04/24 23:02 60 MLS/HR Ondansetron HCl 4 mg Q4HP PRN IV 03/27/24 16:00 03/28/24 07:32 4 MG Enoxaparin Sodium 40 mg DAILY SC 03/28/24 10:00 04/04/24 11:00 40 MG Nitroglycerin 0.4 mg Q5MINP PRN SL 03/27/24 16:00 Piperacillin Sod/ Tazobactam Sod 100 ml @ 25 mls/hr Q8H IV 03/28/24 00:00 04/04/24 16:33 25 MLS/HR Levetiracetam 100 ml @ 400 mls/hr BID IV 03/27/24 22:00 04/04/24 23:03 400 MLS/HR Ondansetron HCl 4 mg Q4HPRN PRN IV 03/27/24 16:30 UNV Amino Acids 0 ml @ 0 mls/hr PER PHARMACY IV 03/30/24 11:45 Diagnostic Test (Pha) 1 strip Q6HR 03/30/24 18:00 04/04/24 17:08 1 STRIP Insulin Human Regular FOLLOW SLIDING SCALE Q6HR SC 03/30/24 18:00 04/04/24 18:04 2 UNITS Dextrose 50 ml UD IV 03/30/24 15:45 Sodium Chloride 10 ml QSHIFT@10,22 IV 03/30/24 22:00 04/04/24 22:00 10 ML Pantoprazole Sodium 40 mg BID IV 03/31/24 22:00 04/04/24 23:03 40 MG Hydromorphone HCl 0.25 mg Q4HPRN PRN IV 04/01/24 20:15 04/04/24 12:37 0.25 MG Lorazepam 0.5 mg Q8HP PRN IV 04/02/24 10:15 Fat Emulsion Intravenous 150 ml/Sodium Acetate 60 meq/Sodium Phosphate 40 meq/ Calcium Gluconate 2.3 meq/Magnesium Sulfate 12 meq/ Multivitamins 10 ml/Chromium/ Copper/Manganese/ Zinc 1 ml/Amino Acids/Dextrose/ Purified Water 1,558.9462 ml @ 65 mls/hr Q24H IV 04/04/24 22:00 04/05/24 21:59 04/04/24 22:50 65 MLS/HR objective Gen.: Patient lying in bed in no apparent distress. On supplemental oxygen. Head: Normocephalic, atraumatic. Eyes: EOMI/PERRLA. Ears: Normal hearing. Normal anatomy. Neck/trachea: Trachea midline, supple. Nose: Normal external anatomy. Mouth: Moist mucous membranes. Chest: Decreased air entry bilaterally. No wheezing or rhonchi. Cardiovascular: Positive S1, positive S2. Regular rate and rhythm. Abdomen: Positive bowel sounds in all 4 quadrants. Soft, non-tender, non- distended. : Deferred. Rectal: Deferred. Skin: Warm, dry. Intact. Extremities: 2+ radial pulses bilaterally. No lower extremity edema. Neuro: Awake, alert, oriented x3. No gross motor or sensory deficits. Cranial nerves II through XII intact. Gait not assessed. laboratory and microbiology Laboratory Tests 04/04/24 06:10 04/03/24 04:45 Test 04/04/24 06:10 Range/Units Serum Glucose 124 H 74-106 mg/dL Assessment/Plan Impression: Acute hypoxic respiratory failure On mechanical ventilator Shock, resolved Aspiration pneumonia Bowel ischemia, s/p resection Severe mitral regurgitation Events: Remains on supplemental O2 On 2 liters/minute via nasal cannula Taper O2 as tolerated Diet advanced to clear liquids. Advance diet per surgery. Continue antibiotics TPN for nutritional support, taper as patient reaches nutritional goal. Incentive spirometry HOB elevation Aspiration precautions Pain control Avoid oversedation Surgery recs appreciated. Continue antiepileptics Protonix BID for GI prophylaxis DVT prophylaxis Labs and imaging reviewed. Rest of plan as noted below. Plan: s/p extubation on 04/01/24 Supplemental oxygen Titrate to keep O2 sats above 90%. Continue antibiotics. Monitor renal function Monitor electrolytes. Supplement as necessary. Monitor ins and outs. Maintain euvolemia. GI prophylaxis. DVT prophylaxis. Prognosis: Poor given patient's multiple co-morbidities. Rest of plan per hospitalist and other consultants. Thank you Dr. Roy for allowing me to participate in this patient's care. Further recommendations will depend on the patient's clinical course. Please do not hesitate to contact me if you have any questions or concerns. This medical document was created using an electronic medical record system with [employer] dictation system. Although these documentations are being carefully reviewed, there may still be some phonetic and typographical changes. The errors are purely typographical, due to imperfection on the software program, and do not reflect any compromise in the patient's medical care. Dietary Evaluation Review Recommendations by RD: Increase Calorie Intake Comments: 1) Increase TPN to provide at least 75% daily estimated energy neeeds 2) Advance to cardiac diet when medically feasible, per TIGER MACHINE OPERATOR approval. 3) Continue to monitor I&O and patient's weight. 4) Continue to monitor nutrition-related labs. Expected Outcomes/Goals: 1) TPN to meet at least 75% daily estimated energy needs 2) diet to advance 3) labs to improve 4) f/u in 2-3 days Plan discussed with: Patient, Other (ANNAMARIE Westbrook) CLARISA ARCHULETA MD Apr 04, 2024 23:32
[2024-04-05] VITALS (7 sets, daily range): BP systolic 103–121; BP diastolic 61–71; PULSE 73–94; RESP 19–20; TEMP 97.9–98.3; O2SAT 93–98
[2024-04-05 07:04] LABS: Alanine Aminotransferase 18 U/L (7-40); Alkaline Phosphatase 69 U/L (46-116); Carbon Dioxide 22 mmol/L (20-31); Chloride 105 mmol/L (98-107)
[2024-04-05 07:05] LABS: Anion Gap 7 (5-15); Aspartate Aminotransferase 22 U/L (13-40); BUN/Creatinine Ratio 21.8 (10.0-20.0); Bilirubin, Total 0.6 mg/dL (0.2-1.0); Blood Urea Nitrogen 17 mg/dL (9-23); Magnesium 2.1 mg/dL (1.6-2.6); Phosphorus 3.1 mg/dL (2.4-5.1); Potassium 4.8 mmol/L (3.5-5.1)
[2024-04-05 07:13] LABS: Calcium 8.3 mg/dL (8.7-10.4); Glucose 152 mg/dL (74-106); Sodium 134 mmol/L (136-145); Total Protein 4.9 g/dL (5.7-8.2)
--- NOTE | 2024-04-05 11:41 | MEDREC ---
[facility] Intervention Section I [facility] Intervention: Review courses of therapy (10 DAYS ON ZOSYN - PATIENT AFEBRILE - PLEASE CONSIDER D/C ANTIBIOTIC IF PATIENT CLNICALLY STABLE ) SELENA WHITLOCK PHARMACIST Apr 05, 2024 11:41
--- NOTE | 2024-04-05 16:19 | DVHPN2 ---
Subjective Overnight events noted. Patient is status post exploratory laparotomy with a bowel resection, currently in [place] on 2-3 L of oxygen by nasal cannula. Can be downgraded to telemetry with a sitter. Patient has passed swallow evaluation and started on clear liquid diet still on TPN. Patient is still not eating yet. Patient was currently tolerating clear liquid diet, we will advanced to full liquid and taper off TPN. Reviewed: Care Plan Changes from previous H/P or p: No Changes Objective Vitals Vital Signs Date Time Temp Pulse Resp B/P (MAP) Pulse Ox O2 Delivery O2 Flow Rate FiO2 04/05/24 12:00 98.2 79 20 105/65 (78) 98 98.2 04/05/24 08:00 Nasal Cannula* 2 28 Intake/Output Intake and Output 04/05/24 07:00 Intake Total 1200 ml Output Total 3175 ml Balance -1975 ml Intake Oral 1200 ml Output Urine Total 3175 ml # Bowel Movements 3 Exam HEENT pupils are reactive Neck is supple CV is S1-S2 regular rate and rhythm Respiratory diminished breath sounds bases GI positive bowel sounds sluggish extremities no edema 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 Medications Current Medications Medications Dose Ordered Sig/Edin Route Start Time Stop Time Status Last Admin Dose Admin Sodium Chloride 1,000 ml @ 60 mls/hr [id number] IV 03/27/24 16:00 04/04/24 23:02 60 MLS/HR Ondansetron HCl 4 mg Q4HP PRN IV 03/27/24 16:00 03/28/24 07:32 4 MG Enoxaparin Sodium 40 mg DAILY SC 03/28/24 10:00 04/05/24 10:11 40 MG Nitroglycerin 0.4 mg Q5MINP PRN SL 03/27/24 16:00 Piperacillin Sod/ Tazobactam Sod 100 ml @ 25 mls/hr Q8H IV 03/28/24 00:00 04/05/24 07:43 25 MLS/HR Levetiracetam 100 ml @ 400 mls/hr BID IV 03/27/24 22:00 04/05/24 10:11 400 MLS/HR Ondansetron HCl 4 mg Q4HPRN PRN IV 03/27/24 16:30 UNV Amino Acids 0 ml @ 0 mls/hr PER PHARMACY IV 03/30/24 11:45 Diagnostic Test (Pha) 1 strip Q6HR 03/30/24 18:00 04/05/24 12:16 1 STRIP Insulin Human Regular FOLLOW SLIDING SCALE Q6HR SC 03/30/24 18:00 04/05/24 12:25 2 UNITS Dextrose 50 ml UD IV 03/30/24 15:45 Sodium Chloride 10 ml QSHIFT@10,22 IV 03/30/24 22:00 04/05/24 10:11 10 ML Pantoprazole Sodium 40 mg BID IV 03/31/24 22:00 04/05/24 10:11 40 MG Hydromorphone HCl 0.25 mg Q4HPRN PRN IV 04/01/24 20:15 04/04/24 12:37 0.25 MG Lorazepam 0.5 mg Q8HP PRN IV 04/02/24 10:15 Fat Emulsion Intravenous 150 ml/Sodium Acetate 60 meq/Sodium Phosphate 40 meq/ Calcium Gluconate 2.3 meq/Magnesium Sulfate 12 meq/ Multivitamins 10 ml/Chromium/ Copper/Manganese/ Zinc 1 ml/Amino Acids/Dextrose/ Purified Water 1,558.9462 ml @ 65 mls/hr Q24H IV 04/04/24 22:00 04/05/24 21:59 04/04/24 22:50 65 MLS/HR Fat Emulsion Intravenous 100 ml/Sodium Acetate 60 meq/Sodium Phosphate 30 meq/ Calcium Gluconate 4.65 meq/ Magnesium Sulfate 12 meq/ Multivitamins 10 ml/Chromium/ Copper/Manganese/ Zinc 1 ml/Amino Acids/Dextrose/ Purified Water 1,261.5 ml @ 52 mls/hr [id number] IV 04/05/24 22:00 04/06/24 21:59 Laboratory Results Laboratory Tests 04/03/24 04:45 04/05/24 05:34 Chemistry Test 04/05/24 05:34 Albumin 3.0 g/dL (3.2-4.8) L Calcium Level 8.3 mg/dL (8.7-10.4) L Magnesium Level 2.1 mg/dL (1.6-2.6) Phosphorus Level 3.1 mg/dL (2.4-5.1) Total Protein 4.9 g/dL (5.7-8.2) L LFT Test 04/05/24 05:34 Alanine Aminotransferase (ALT) 18 U/L (7-40) Alkaline Phosphatase 69 U/L (46-116) Aspartate Amino Transferase (AST) 22 U/L (13-40) Total Bilirubin 0.6 mg/dL (0.2-1.0) Urinalysis Test 03/26/24 20:30 04/02/24 10:11 Urine Mucus Few (None Seen) Urine Color Light-brown (Yellow) Urine Clarity Turbid (Clear) H Urine pH 6.5 (5.0-9.0) Urine Specific [place] 1.016 (1.001-1.035) Urine Protein Trace (Negative) H Urine Ketones Negative (Negative) Urine Blood 3+ /uL (Negative) H Urine Nitrite Negative (Negative) Urine Bilirubin Negative (Negative) Urine Urobilinogen Normal mg/dL (Negative) Urine Leukocyte Esterase 1+ /uL (Negative) Urine RBC 10 /hpf (0 - 3) Urine WBC <1 /hpf (0 - 3) Urine Squamous Epithelial Cells None seen /hpf (<5) Urine Bacteria None seen /hpf (None Seen) Urine Glucose Normal mg/dL (Normal) Microbiology Microbiology Date/Time Source Procedure Growth Status 04/02/24 10:11 Urine - [place] Urine Culture - Final Complete 03/30/24 16:30 Bronchial Washings Gram Stain - Final Complete 03/30/24 16:30 Bronchial Washings Respiratory Culture - Final Complete Assessment/Plan Assessment/Plan 83-year-old male with known history of coronary artery disease status post one- vessel CABG, seizure disorder, previous history of multiple inguinal hernia surgery presented to the hospital with the abdominal pain nausea vomiting found to have 1. Small bowel obstruction with adhesions at the previous operative site status post exploratory laparotomy with bowel resection and primary end-to-end anastomosis 2. Acute hypoxic respiratory failure postop intubated, extubated, currently on nasal cannula 3. Coronary artery disease status post one-vessel CABG 4. Seizure disorder 5. Hypertension 6. Acute delirium currently resolved -advance diet to full liquid diet, tapered off TPN -follow up Pulmonary recommendation -follow up General surgery -plan of care discussed with the patient's bedside RN. -may downgraded to telemetry with a sitter Plan discussed with: Patient My Orders Orders - CHEIKH GUIDRY MD Procedure Category Date Status Time Full Liq Diet DIET 04/05/24 Transmitted Dinner Date of Service: Apr 05, 2024 Billing Provider: CHEIKH GUIDRY MD Common Visit Codes: NOT BILLABLE CHEIKH GUIDRY MD Apr 05, 2024 16:19
--- NOTE | 2024-04-05 17:21 | DVHPN2 ---
Progress Note Date Seen: Apr 05, 2024 Medical Necessity Reason Pt with a Central, PICC or Fol: Yes The following are medically ne: Delong Catheter Reason for delong catheter: Strict I&O Objective vital signs Vital Sign Date Time Temp Pulse Resp B/P (MAP) Pulse Ox O2 Delivery O2 Flow Rate FiO2 04/05/24 12:00 98.2 79 20 105/65 (78) 98 98.2 04/05/24 08:00 Nasal Cannula* 2 28 Total Intake and Output 04/04/24 04/04/24 04/05/24 15:00 23:00 07:00 Intake Total 1000 ml 200 ml Output Total 1825 ml 1350 ml Balance -825 ml -1150 ml medications Current Medications Medications Dose Ordered Sig/Edin Route Start Time Stop Time Status Last Admin Dose Admin Sodium Chloride 1,000 ml @ 60 mls/hr [id number] IV 03/27/24 16:00 04/05/24 16:43 60 MLS/HR Ondansetron HCl 4 mg Q4HP PRN IV 03/27/24 16:00 03/28/24 07:32 4 MG Enoxaparin Sodium 40 mg DAILY SC 03/28/24 10:00 04/05/24 10:11 40 MG Nitroglycerin 0.4 mg Q5MINP PRN SL 03/27/24 16:00 Piperacillin Sod/ Tazobactam Sod 100 ml @ 25 mls/hr Q8H IV 03/28/24 00:00 04/05/24 16:43 25 MLS/HR Levetiracetam 100 ml @ 400 mls/hr BID IV 03/27/24 22:00 04/05/24 10:11 400 MLS/HR Ondansetron HCl 4 mg Q4HPRN PRN IV 03/27/24 16:30 UNV Amino Acids 0 ml @ 0 mls/hr PER PHARMACY IV 03/30/24 11:45 Diagnostic Test (Pha) 1 strip Q6HR 03/30/24 18:00 04/05/24 12:16 1 STRIP Insulin Human Regular FOLLOW SLIDING SCALE Q6HR SC 03/30/24 18:00 04/05/24 12:25 2 UNITS Dextrose 50 ml UD IV 03/30/24 15:45 Sodium Chloride 10 ml QSHIFT@10,22 IV 03/30/24 22:00 04/05/24 10:11 10 ML Pantoprazole Sodium 40 mg BID IV 03/31/24 22:00 04/05/24 10:11 40 MG Hydromorphone HCl 0.25 mg Q4HPRN PRN IV 04/01/24 20:15 04/04/24 12:37 0.25 MG Lorazepam 0.5 mg Q8HP PRN IV 04/02/24 10:15 Fat Emulsion Intravenous 150 ml/Sodium Acetate 60 meq/Sodium Phosphate 40 meq/ Calcium Gluconate 2.3 meq/Magnesium Sulfate 12 meq/ Multivitamins 10 ml/Chromium/ Copper/Manganese/ Zinc 1 ml/Amino Acids/Dextrose/ Purified Water 1,558.9462 ml @ 65 mls/hr Q24H IV 04/04/24 22:00 04/05/24 21:59 04/04/24 22:50 65 MLS/HR Fat Emulsion Intravenous 100 ml/Sodium Acetate 60 meq/Sodium Phosphate 30 meq/ Calcium Gluconate 4.65 meq/ Magnesium Sulfate 12 meq/ Multivitamins 10 ml/Chromium/ Copper/Manganese/ Zinc 1 ml/Amino Acids/Dextrose/ Purified Water 1,261.5 ml @ 52 mls/hr [id number] IV 04/05/24 22:00 04/06/24 21:59 laboratory and microbiology Laboratory Tests 04/05/24 05:34 04/03/24 04:45 Test 04/05/24 05:34 Range/Units Serum Glucose 152 H 74-106 mg/dL Microbiology Date/Time Source Procedure Growth Status 04/02/24 10:11 Urine - Delong Port Urine Culture - Final Complete 03/30/24 16:30 Bronchial Washings Gram Stain - Final Complete 03/30/24 16:30 Bronchial Washings Respiratory Culture - Final Complete Problem List/Assessment/Plan Problem List/Assessment/Plan AFEBRILE VSS ABD SOFT LESS DISTENDED BM + FLATUS WOUND DRESSING IN PLACE CONTINUE CLOSE OBSERVATION ADVANCE DIET MICHAEL DC DELONG CLEARED FOR DISCHARGE INSTRUCTIONS RE DIET ACTIVITY F/UP GIVEN NURSE AND FAMILY AT BEDSIDE Plan discussed with: Patient Dietary Evaluation Review Recommendations by RD: Increase Calorie Intake Comments: 1) Increase TPN to provide at least 75% daily estimated energy neeeds 2) Advance to cardiac diet when medically feasible, per [employer]ILLI[employer] TABLE approval. 3) Continue to monitor I&O and patient's weight. 4) Continue to monitor nutrition-related labs. Expected Outcomes/Goals: 1) TPN to meet at least 75% daily estimated energy needs 2) diet to advance 3) labs to improve 4) f/u in 2-3 days RUFUS CHOE MD Apr 05, 2024 17:21
[2024-04-05] MEDS: TPN PER PHARMACY IV NR (21:53)
--- NOTE | 2024-04-05 23:10 | DVHPN2 ---
Progress Note - Dictate Date Seen: Apr 05, 2024 Medical Necessity Reason Pt with a Central, PICC or Fol: Yes The following are medically ne: Delong Catheter Reason for delong catheter: Strict I&O Subjective Patient seen and examined at bedside. on room air. Overnight events reviewed vital signs Vital Sign Date Time Temp Pulse Resp B/P (MAP) Pulse Ox O2 Delivery O2 Flow Rate FiO2 04/05/24 16:00 98.2 75 20 109/63 (78) 97 98.2 04/05/24 08:00 Nasal Cannula* 2 28 Total Intake and Output 04/04/24 04/04/24 04/05/24 15:00 23:00 07:00 Intake Total 1000 ml 200 ml Output Total 1825 ml 1350 ml Balance -825 ml -1150 ml medications Current Medications Medications Dose Ordered Sig/Edin Route Start Time Stop Time Status Last Admin Dose Admin Sodium Chloride 1,000 ml @ 60 mls/hr [id number] IV 03/27/24 16:00 04/05/24 16:43 60 MLS/HR Ondansetron HCl 4 mg Q4HP PRN IV 03/27/24 16:00 03/28/24 07:32 4 MG Enoxaparin Sodium 40 mg DAILY SC 03/28/24 10:00 04/05/24 10:11 40 MG Nitroglycerin 0.4 mg Q5MINP PRN SL 03/27/24 16:00 Piperacillin Sod/ Tazobactam Sod 100 ml @ 25 mls/hr Q8H IV 03/28/24 00:00 04/05/24 16:43 25 MLS/HR Levetiracetam 100 ml @ 400 mls/hr BID IV 03/27/24 22:00 04/05/24 21:19 400 MLS/HR Ondansetron HCl 4 mg Q4HPRN PRN IV 03/27/24 16:30 UNV Amino Acids 0 ml @ 0 mls/hr PER PHARMACY IV 03/30/24 11:45 Diagnostic Test (Pha) 1 strip Q6HR 03/30/24 18:00 04/05/24 18:19 1 STRIP Insulin Human Regular FOLLOW SLIDING SCALE Q6HR SC 03/30/24 18:00 04/05/24 18:37 4 UNITS Dextrose 50 ml UD IV 03/30/24 15:45 Sodium Chloride 10 ml QSHIFT@10,22 IV 03/30/24 22:00 04/05/24 21:30 10 ML Pantoprazole Sodium 40 mg BID IV 03/31/24 22:00 04/05/24 21:26 40 MG Hydromorphone HCl 0.25 mg Q4HPRN PRN IV 04/01/24 20:15 04/04/24 12:37 0.25 MG Lorazepam 0.5 mg Q8HP PRN IV 04/02/24 10:15 Fat Emulsion Intravenous 100 ml/Sodium Acetate 60 meq/Sodium Phosphate 30 meq/ Calcium Gluconate 4.65 meq/ Magnesium Sulfate 12 meq/ Multivitamins 10 ml/Chromium/ Copper/Manganese/ Zinc 1 ml/Amino Acids/Dextrose/ Purified Water 1,261.5 ml @ 52 mls/hr [id number] IV 04/05/24 22:00 04/06/24 21:59 04/05/24 21:53 52 MLS/HR objective Gen.: Patient lying in bed in no apparent distress. On room air. Head: Normocephalic, atraumatic. Eyes: EOMI/PERRLA. Ears: Normal hearing. Normal anatomy. Neck/trachea: Trachea midline, supple. Nose: Normal external anatomy. Mouth: Moist mucous membranes. Chest: Decreased air entry bilaterally. No wheezing or rhonchi. Cardiovascular: Positive S1, positive S2. Regular rate and rhythm. Abdomen: Positive bowel sounds in all 4 quadrants. Soft, non-tender, non- distended. : Deferred. Rectal: Deferred. Skin: Warm, dry. Intact. Extremities: 2+ radial pulses bilaterally. No lower extremity edema. Neuro: Awake, alert, oriented x3. No gross motor or sensory deficits. Cranial nerves II through XII intact. Gait not assessed. laboratory and microbiology Laboratory Tests 04/05/24 05:34 04/03/24 04:45 Test 04/05/24 05:34 Range/Units Serum Glucose 152 H 74-106 mg/dL Assessment/Plan Impression: Acute hypoxic respiratory failure On mechanical ventilator Shock, resolved Aspiration pneumonia Bowel ischemia, s/p resection Severe mitral regurgitation Events: Breathing on room air Supplemental oxygen PRN Advance diet per surgery. Continue antibiotics TPN for nutritional support, taper as patient reaches nutritional goal. Incentive spirometry HOB elevation Aspiration precautions Continue antiepileptics Protonix BID for GI prophylaxis DVT prophylaxis Labs and imaging reviewed. Rest of plan as noted below. Plan: s/p extubation on 04/01/24 Supplemental oxygen PRN Titrate to keep O2 sats above 90%. Continue antibiotics. Monitor renal function Monitor electrolytes. Supplement as necessary. Monitor ins and outs. Maintain euvolemia. GI prophylaxis. DVT prophylaxis. Prognosis: Poor given patient's multiple co-morbidities. Rest of plan per hospitalist and other consultants. Thank you Dr. Roy for allowing me to participate in this patient's care. Further recommendations will depend on the patient's clinical course. Please do not hesitate to contact me if you have any questions or concerns. This medical document was created using an electronic medical record system with [employer] dictation system. Although these documentations are being carefully reviewed, there may still be some phonetic and typographical changes. The errors are purely typographical, due to imperfection on the software program, and do not reflect any compromise in the patient's medical care. Dietary Evaluation Review Recommendations by RD: Increase Calorie Intake Comments: 1) Increase TPN to provide at least 75% daily estimated energy neeeds 2) Advance to cardiac diet when medically feasible, per BONE GRINDER approval. 3) Continue to monitor I&O and patient's weight. 4) Continue to monitor nutrition-related labs. Expected Outcomes/Goals: 1) TPN to meet at least 75% daily estimated energy needs 2) diet to advance 3) labs to improve 4) f/u in 2-3 days Plan discussed with: Patient, Other (RN Norberto) CLARISA ARCHULETA MD Apr 05, 2024 23:10
[2024-04-06 01:00] VITALS: BP 93/61; PULSE 79; RESP 18; TEMP 98.4; O2SAT 95
[2024-04-06 05:00] VITALS: BP 100/70; PULSE 81; RESP 18; TEMP 98.3; O2SAT 95
[2024-04-06 08:00] VITALS: PULSE 75
[2024-04-06 09:00] VITALS: BP 109/59; PULSE 89; RESP 18; TEMP 97.6; O2SAT 95
[2024-04-06 10:23] LABS: Alanine Aminotransferase 18 U/L (7-40); Albumin 3.3 g/dL (3.2-4.8); Alkaline Phosphatase 80 U/L (46-116); Anion Gap 8 (5-15); Aspartate Aminotransferase 26 U/L (13-40); BUN/Creatinine Ratio 28.9 (10.0-20.0); Bilirubin, Total 0.5 mg/dL (0.2-1.0); Blood Urea Nitrogen 22 mg/dL (9-23); Carbon Dioxide 22 mmol/L (20-31); Chloride 107 mmol/L (98-107); Magnesium 2.1 mg/dL (1.6-2.6); Phosphorus 2.8 mg/dL (2.4-5.1); Potassium 4.4 mmol/L (3.5-5.1); Sodium 137 mmol/L (136-145)
[2024-04-06 10:27] LABS: Calcium 8.6 mg/dL (8.7-10.4); Glucose 111 mg/dL (74-106)
[2024-04-06 13:00] VITALS: BP 100/67; PULSE 91; RESP 18; TEMP 97.3; O2SAT 93
[2024-04-06] MEDS ORDERED: TRAM50TA2 PO (15:28)
--- NOTE | 2024-04-06 15:48 | DVHDS2 ---
Discharge Summary Date of Admission Mar 27, 2024 at 15:57 Date of Discharge: Apr 06, 2024 Labs/Diagnostic Data: Laboratory Results Test 04/06/24 09:40 04/03/24 04:45 04/02/24 10:11 04/02/24 03:00 Sodium Level 137 mmol/L (136-145) Potassium Level 4.4 mmol/L (3.5-5.1) Chloride Level 107 mmol/L (98-107) Carbon Dioxide Level 22 mmol/L (20-31) Anion Gap 8 (5-15) Blood Urea Nitrogen 22 mg/dL (9-23) Creatinine 0.76 mg/dL (0.700-1.30) Glomerular Filtration Rate Calc 90 mL/min (>90) BUN/Creatinine Ratio 28.9 (10.0-20.0) Serum Glucose 111 mg/dL (74-106) Calcium Level 8.6 mg/dL (8.7-10.4) Phosphorus Level 2.8 mg/dL (2.4-5.1) Magnesium Level 2.1 mg/dL (1.6-2.6) Total Bilirubin 0.5 mg/dL (0.2-1.0) Aspartate Amino Transferase (AST) 26 U/L (13-40) Alanine Aminotransferase (ALT) 18 U/L (7-40) Alkaline Phosphatase 80 U/L (46-116) Total Protein 5.0 g/dL (5.7-8.2) Albumin 3.3 g/dL (3.2-4.8) White Blood Count 9.3 10^3/uL (4.4-10.8) Red Blood Count 3.55 10^6/uL (4.5-5.90) Hemoglobin 9.3 g/dL (13.5-17.5) Hematocrit 28.9 % (41.0-53.0) Mean Corpuscular Volume 81.3 fL (80.0-100.0) Mean Corpuscular Hemoglobin 26.3 pg (28.0-32.0) Mean Corpuscular Hemoglobin Concent 32.4 g/dL (32.0-36.0) Red Cell Distribution Width 16.3 % (11.8-14.3) Platelet Count 147 10^3/uL (140-450) Mean Platelet Volume 8.5 fL (6.9-10.8) Neutrophils (%) (Auto) % (37.0-80.0) Lymphocytes (%) (Auto) % (10.0-50.0) Monocytes (%) (Auto) % (0.0-12.0) Basophils (%) (Auto) % (0.0-2.0) Neutrophils # (Auto) 10 ^3/uL (1.6-8.6) Lymphocytes # (Auto) 10 ^3/uL (0.4-5.4) Monocytes # (Auto) 10 ^3/uL (0-1.3) Differential Total Cells Counted 100.0 (100) Neutrophils % (Manual) 62 (37.0-80.0) Band Neutrophils % (Manual) 0 Lymphocytes % (Manual) 14 (10.0-50.0) Monocytes % (Manual) 17 (0-12) Eosinophils % (Manual) 7 (0-7) Basophils % (Manual) 0 (0.0-2.0) Metamyelocytes % (manual) 0 Myelocytes % (Manual) 0 Promyelocytes % (Manual) 0 Blast Cells % (Manual) 0 Reactive Lymphocytes 0 Platelet Estimate Adequate Ovalocytes Few Silke Cells Few Urine Color Light-brown (Yellow) Urine Clarity Turbid (Clear) Urine pH 6.5 (5.0-9.0) Urine Specific Wentworth 1.016 (1.001-1.035) Urine Protein Trace (Negative) Urine Ketones Negative (Negative) Urine Blood 3+ /uL (Negative) Urine Nitrite Negative (Negative) Urine Bilirubin Negative (Negative) Urine Urobilinogen Normal mg/dL (Negative) Urine Leukocyte Esterase 1+ /uL (Negative) Urine RBC 10 /hpf (0 - 3) Urine WBC <1 /hpf (0 - 3) Urine Squamous Epithelial Cells None seen /hpf (<5) Urine Bacteria None seen /hpf (None Seen) Urine Glucose Normal mg/dL (Normal) Hypochromasia (manual) Slight Test 04/01/24 15:20 04/01/24 11:47 04/01/24 08:33 03/31/24 08:00 Blood Gas Specimen Type Arterial Blood Gas Sample Site Arterial line Blood Gas Patient Temperature 37.0 Arterial Blood Date Drawn [id number] Arterial Blood pH 7.502 (7.350-7.450) Arterial Blood Partial Pressure CO2 25.1 mmHg (35.0-48.0) Arterial Blood Partial Pressure O2 100.9 mmHg (83.0-108.0) Arterial Blood HCO3 19.2 mmol/L (21.0-28.0) Arterial Blood Oxygen Saturation 97.7 % (94.0-98.0) Arterial Blood Base Excess -2.8 mmol/L (-2.0-3.0) Arterial Blood Oxyhemoglobin 97.1 % (94.0-98.0) Arterial Blood Carboxyhemoglobin 0.3 % (0.5-1.5) Arterial Blood Methemoglobin 0.3 % (0.0-1.5) Jesse Test N/a Blood Gas Total Hemoglobin 10.30 g/dL (13.5-17.5) Blood Gas Modality Vent - cpap FiO2 % 30.0 Blood Gas Pressure Support 8 Blood Gas PEEP or CPAP 5.0 Blood Gas Comments Blood Gas Critical Value Read Back Yes POC Glucose 135 mg/dl (70-106) Blood Gas Set Respiration Rate 16.0 Blood Gas Tidal Volume 500.0 Blood Gas Spontaneous Rate 16 Blood Gas Inspiratory Pressure 20.0 Bl Gas Inspiratory/Expiratory Ratio 1:3.2 Specimen Drawn By agnes rt Test 03/31/24 03:00 03/29/24 16:55 03/27/24 02:47 03/26/24 20:30 Eosinophils (%) (Auto) 0.2 % (0.0-7.0) Eosinophils # (Auto) 0 10 ^3/uL (0-0.8) Basophils # (Auto) 0 10 ^3/uL (0-0.2) Nucleated Red Blood Cells 0.0 % Triglycerides Level 100 mg/dL (< 150) Prothrombin Time 12.8 sec (9.3-11.8) Prothrombin Time INR 1.23 (0.9-1.15) Activated Partial Thromboplast Time 29.0 SEC (24.5-34.5) Lactic Acid Level 2.0 mmol/L (0.4-2.0) Urine Mucus Few (None Seen) Test 03/26/24 19:44 Lipase 54 U/L (12-53) Other Laboratory Tests 04/06/24 09:40 04/03/24 04:45 Brief Hx & Hospital Course: 83-year-old male with known history of coronary artery disease status post one- vessel CABG, seizure disorder, previous history of multiple inguinal hernia surgery presented to the hospital with the abdominal pain nausea vomiting found to have small-bowel obstruction with adhesions at the previous operative site for multiple inguinal hernia and abdominal hernia surgery. Patient underwent exploratory laparotomy with bowel resection with a primary end-to-end anastomosis. Postoperatively patient remains intubated. Finally patient was extubated and transferred to tele floor. Patient was on TPN as well as IV antibiotics. Patient is currently tolerating food and general surgery cleared the patient to be discharged. Patient is being discharged under stable condition. With the home health home safety evaluation Condition at Discharge: Stable Final Diagnosis/Problems List 83-year-old male with known history of coronary artery disease status post one-vessel CABG, seizure disorder, previous history of multiple inguinal hernia surgery presented to the hospital with the abdominal pain nausea vomiting found to have 1. Small bowel obstruction with adhesions at the previous operative site status post exploratory laparotomy with bowel resection and primary end-to-end anastomosis 2. Acute hypoxic respiratory failure postop intubated, extubated, currently on nasal cannula 3. Coronary artery disease status post one-vessel CABG 4. Seizure disorder 5. Hypertension 6. Acute delirium currently resolved Discharge Disposition: Home with Health Services SNF Discharge Will this Physician continue t: No Discharge Instruct/Medications Diet: Cardiac 2g Na,low cholest Activity: See Comment Activity comment: No driving, no playing on heavy machinery, no signing legal documents while on narcotics. Follow Up/Referral: Follow up with the PCP in one week Follow up with Dr. Cayetano French in one week Medications: Tramadol as prescribed Discharge Statement: "Patient was advised to return to the ER or call 911 if any headaches, dizziness, shortness of breath, chest pain, abdominal pain, bleeding, fevers, or worsening of medical condition. Patient was counseled about treatment plan, medications, possible side effects, patientverbalized understanding. All questions were answered to the best of my ability. This discharge took greater then 30 minutes in planning, reviewing documentation, counseling the patient, and discussing with other team members." ASSESSMENT ASSESSMENT Assessment 83-year-old male with known history of coronary artery disease status post one- vessel CABG, seizure disorder, previous history of multiple inguinal hernia surgery presented to the hospital with the abdominal pain nausea vomiting found to have 1. Small bowel obstruction with adhesions at the previous operative site status post exploratory laparotomy with bowel resection and primary end-to-end anastomosis 2. Acute hypoxic respiratory failure postop intubated, extubated, currently on nasal cannula 3. Coronary artery disease status post one-vessel CABG 4. Seizure disorder 5. Hypertension 6. Acute delirium currently resolved Date of Service: Apr 06, 2024 Billing Provider: CHEIKH GUIDRY MD Common Visit Codes: NOT BILLABLE CHEIKH GUIDRY MD Apr 06, 2024 15:48
--- NOTE | 2024-04-06 16:05 | DVHPN2 ---
Progress Note Date Seen: Apr 06, 2024 Medical Necessity Reason Pt with a Central, PICC or Fol: Yes The following are medically ne: Delong Catheter Reason for delong catheter: Strict I&O Objective vital signs Vital Sign Date Time Temp Pulse Resp B/P (MAP) Pulse Ox O2 Delivery O2 Flow Rate FiO2 04/06/24 08:00 75 04/06/24 08:00 Room Air* 0 21 04/06/24 05:00 98.3 18 100/70 (80) 95 98.3 Total Intake and Output 04/05/24 04/05/24 04/06/24 15:00 23:00 07:00 Intake Total 100 ml 540 ml 600 ml Output Total 1400 ml 720 ml Balance 100 ml -860 ml -120 ml medications Current Medications Medications Dose Ordered Sig/Edin Route Start Time Stop Time Status Last Admin Dose Admin Sodium Chloride 1,000 ml @ 60 mls/hr [id number] IV 03/27/24 16:00 04/06/24 09:22 60 MLS/HR Ondansetron HCl 4 mg Q4HP PRN IV 03/27/24 16:00 03/28/24 07:32 4 MG Enoxaparin Sodium 40 mg DAILY SC 03/28/24 10:00 04/06/24 10:26 40 MG Nitroglycerin 0.4 mg Q5MINP PRN SL 03/27/24 16:00 Piperacillin Sod/ Tazobactam Sod 100 ml @ 25 mls/hr Q8H IV 03/28/24 00:00 04/06/24 08:21 25 MLS/HR Levetiracetam 100 ml @ 400 mls/hr BID IV 03/27/24 22:00 04/06/24 10:26 400 MLS/HR Ondansetron HCl 4 mg Q4HPRN PRN IV 03/27/24 16:30 UNV Diagnostic Test (Pha) 1 strip Q6HR 03/30/24 18:00 04/06/24 12:18 1 STRIP Insulin Human Regular FOLLOW SLIDING SCALE Q6HR SC 03/30/24 18:00 04/06/24 05:56 2 UNITS Dextrose 50 ml UD IV 03/30/24 15:45 Sodium Chloride 10 ml QSHIFT@10,22 IV 03/30/24 22:00 04/06/24 10:26 10 ML Pantoprazole Sodium 40 mg BID IV 03/31/24 22:00 04/06/24 10:26 40 MG Hydromorphone HCl 0.25 mg Q4HPRN PRN IV 04/01/24 20:15 04/04/24 12:37 0.25 MG Lorazepam 0.5 mg Q8HP PRN IV 04/02/24 10:15 Fat Emulsion Intravenous 50 ml/ Sodium Acetate 60 meq/Sodium Phosphate 40 meq/ Potassium Acetate 20 meq/Calcium Gluconate 4.65 meq/Magnesium Sulfate 16 meq/ Multivitamins 10 ml/Chromium/ Copper/Manganese/ Zinc 1 ml/Amino Acids/Dextrose/ Purified Water 1,125 ml @ 46 mls/hr [id number] IV 04/06/24 22:00 04/06/24 22:00 Cancel laboratory and microbiology Laboratory Tests 04/06/24 09:40 04/03/24 04:45 Test 04/06/24 09:40 Range/Units Serum Glucose 111 H 74-106 mg/dL Microbiology Date/Time Source Procedure Growth Status 04/02/24 10:11 Urine - Delong Port Urine Culture - Final Complete 03/30/24 16:30 Bronchial Washings Gram Stain - Final Complete 03/30/24 16:30 Bronchial Washings Respiratory Culture - Final Complete Problem List/Assessment/Plan Problem List/Assessment/Plan AFEBRILE VSS ABD SOFT LESS DISTENDED BM + FLATUS WOUND DRESSING CHANGED ADVANCE DIET MICHAEL CLEARED FOR DISCHARGE INSTRUCTIONS RE DIET ACTIVITY F/UP GIVEN NURSE AT BEDSIDE Plan discussed with: Patient My Orders My Orders Orders - RUFUS CHOE MD Procedure Category Date Status Time Soft Diet DIET 04/06/24 Transmitted Breakfast Dietary Evaluation Review Recommendations by RD: Increase Calorie Intake Comments: 1) Increase TPN to provide at least 75% daily estimated energy neeeds 2) Advance to cardiac diet when medically feasible, per [employer]ER approval. 3) Continue to monitor I&O and patient's weight. 4) Continue to monitor nutrition-related labs. Expected Outcomes/Goals: 1) TPN to meet at least 75% daily estimated energy needs 2) diet to advance 3) labs to improve 4) f/u in 2-3 days RUFUS CHOE MD Apr 06, 2024 16:05
[2024-04-06 17:00] VITALS: BP 119/67; PULSE 93; RESP 18; TEMP 97.5; O2SAT 96
[2024-04-06] MEDS ORDERED: TPN PER PHARMACY IV NR (22:00)
--- NOTE | 2024-04-06 23:45 | DVHPN2 ---
Progress Note - Dictate Date Seen: Apr 06, 2024 Medical Necessity Reason Pt with a Central, PICC or Fol: Yes The following are medically ne: Delong Catheter Reason for delong catheter: Strict I&O Subjective Patient seen and examined at bedside. on room air. Overnight events reviewed vital signs Vital Sign Date Time Temp Pulse Resp B/P (MAP) Pulse Ox O2 Delivery O2 Flow Rate FiO2 04/06/24 17:00 97.5 93 18 119/67 (84) 96 97.5 04/06/24 08:00 Room Air* 0 21 Total Intake and Output 04/05/24 04/05/24 04/06/24 15:00 23:00 07:00 Intake Total 100 ml 540 ml 600 ml Output Total 1400 ml 720 ml Balance 100 ml -860 ml -120 ml medications Current Medications Medications Dose Ordered Sig/Edin Route Start Time Stop Time Status Last Admin Dose Admin Ondansetron HCl 4 mg Q4HPRN PRN IV 03/27/24 16:30 UNV Fat Emulsion Intravenous 50 ml/ Sodium Acetate 60 meq/Sodium Phosphate 40 meq/ Potassium Acetate 20 meq/Calcium Gluconate 4.65 meq/Magnesium Sulfate 16 meq/ Multivitamins 10 ml/Chromium/ Copper/Manganese/ Zinc 1 ml/Amino Acids/Dextrose/ Purified Water 1,125 ml @ 46 mls/hr [id number] IV 04/06/24 22:00 04/06/24 22:00 Cancel objective Gen.: Patient lying in bed in no apparent distress. On room air. Head: Normocephalic, atraumatic. Eyes: EOMI/PERRLA. Ears: Normal hearing. Normal anatomy. Neck/trachea: Trachea midline, supple. Nose: Normal external anatomy. Mouth: Moist mucous membranes. Chest: Decreased air entry bilaterally. No wheezing or rhonchi. Cardiovascular: Positive S1, positive S2. Regular rate and rhythm. Abdomen: Positive bowel sounds in all 4 quadrants. Soft, non-tender, non- distended. : Deferred. Rectal: Deferred. Skin: Warm, dry. Intact. Extremities: 2+ radial pulses bilaterally. No lower extremity edema. Neuro: Awake, alert, oriented x3. No gross motor or sensory deficits. Cranial nerves II through XII intact. Gait not assessed. laboratory and microbiology Laboratory Tests 04/06/24 09:40 1/4/25 04:45 Test 04/06/24 09:40 Range/Units Serum Glucose 111 H 74-106 mg/dL Assessment/Plan Impression: Acute hypoxic respiratory failure On mechanical ventilator Shock, resolved Aspiration pneumonia Bowel ischemia, s/p resection Severe mitral regurgitation Events: Breathing on room air Supplemental oxygen PRN Surgery recs appreciated. Advance diet per surgery. Continue antibiotics TPN for nutritional support, taper as patient reaches nutritional goal. Incentive spirometry HOB elevation Aspiration precautions Continue antiepileptics Protonix BID for GI prophylaxis DVT prophylaxis Patient is stable for discharge from the pulmonary standpoint. Disposition per hospitalist. Labs and imaging reviewed. Rest of plan as noted below. Plan: s/p extubation on 04/01/24 Supplemental oxygen PRN Titrate to keep O2 sats above 90%. Continue antibiotics. Monitor renal function Monitor electrolytes. Supplement as necessary. Monitor ins and outs. Maintain euvolemia. GI prophylaxis. DVT prophylaxis. Prognosis: Poor given patient's multiple co-morbidities. Rest of plan per hospitalist and other consultants. Thank you Dr. Roy for allowing me to participate in this patient's care. Further recommendations will depend on the patient's clinical course. Please do not hesitate to contact me if you have any questions or concerns. This medical document was created using an electronic medical record system with [employer] dictation system. Although these documentations are being carefully reviewed, there may still be some phonetic and typographical changes. The errors are purely typographical, due to imperfection on the software program, and do not reflect any compromise in the patient's medical care. Dietary Evaluation Review Recommendations by RD: Increase Calorie Intake Comments: 1) Increase TPN to provide at least 75% daily estimated energy neeeds 2) Advance to cardiac diet when medically feasible, per HOUSEK[employer]PER approval. 3) Continue to monitor I&O and patient's weight. 4) Continue to monitor nutrition-related labs. Expected Outcomes/Goals: 1) TPN to meet at least 75% daily estimated energy needs 2) diet to advance 3) labs to improve 4) f/u in 2-3 days Plan discussed with: Patient, Other (ANNAMARIE Westbrook) CLARISA ARCHULETA MD Apr 06, 2024 23:45
== END 2024-04-06 17:44 | disposition home health service (06) | DRG 329 ==
LOC: ER 18:55 → TELE 03-27 15:57 → TELE-CENTR 03-27 23:19 → ICU WEST 03-29 12:47 → DOU IN ICU 04-02 21:00 → TELE-WESTW 04-03 22:30
PROVIDERS: ADMIT Internal Medicine; ATTEND Internal Medicine
PROC: 0D9670Z Drainage of Stomach with Drainage Device, Via Natural or Artificial Opening (ICD-10-PCS; 2024-03-27)
PROC: 0DB80ZZ Excision of Small Intestine, Open Approach (ICD-10-PCS; 2024-03-29)
PROC: 0BH17EZ Insertion of Endotracheal Airway into Trachea, Via Natural or Artificial Opening (ICD-10-PCS; 2024-03-29)
PROC: 5A1945Z Respiratory Ventilation, 24-96 Consecutive Hours (ICD-10-PCS; principal; 2024-03-29 08:39)
PROC: 0B9D8ZX Drainage of Right Middle Lung Lobe, Via Natural or Artificial Opening Endoscopic, Diagnostic (ICD-10-PCS; 2024-03-30)
PROC: 02HV33Z Insertion of Infusion Device into Superior Vena Cava, Percutaneous Approach (ICD-10-PCS; 2024-03-30)
PROC: B548ZZA Ultrasonography of Superior Vena Cava, Guidance (ICD-10-PCS; 2024-03-30)
PROC: 0BC78ZZ Extirpation of Matter from Left Main Bronchus, Via Natural or Artificial Opening Endoscopic (ICD-10-PCS; 2024-03-30)
DX: K56.50 Intestinal adhesions [bands], unspecified as to partial versus complete obstruction (principal); J69.0 Pneumonitis due to inhalation of food and vomit; J96.01 Acute respiratory failure with hypoxia; K55.9 Vascular disorder of intestine, unspecified; R57.9 Shock, unspecified; J98.11 Atelectasis; E78.5 Hyperlipidemia, unspecified; G40.909 Epilepsy, unspecified, not intractable, without status epilepticus; I10 Essential (primary) hypertension; I34.0 Nonrheumatic mitral (valve) insufficiency; I25.10 Atherosclerotic heart disease of native coronary artery without angina pectoris; I25.2 Old myocardial infarction; Z86.73 Personal history of transient ischemic attack (TIA), and cerebral infarction without residual deficits; Z87.442 Personal history of urinary calculi; Z95.1 Presence of aortocoronary bypass graft; Z81.1 Family history of alcohol abuse and dependence; Z84.1 Family history of disorders of kidney and ureter; Z79.82 Long term (current) use of aspirin; Z79.899 Other long term (current) drug therapy
CPT/HCPCS: 36415; 36569; 36600; 71045; 74018; 74177; 76937; 80048; 80053; 81001; 82805; 82962; 83605; 83690; 83735; 84100; 84478; 85007; 85025; 85027; 85610; 85730; 86850; 86900; 86901; 87070; 87081; 87086; 87205; 93005; 94002; 94003; 94640; 97110; 97116; 97163; 97530; 99291; G0378; J1100; J1815; J2003; J2250; J2405; J2470; J2543; J3480; J7060

== ENCOUNTER 2024-04-26 15:59 | Emergency (ER) | payer OTHER ==
[~2024-04-26] VITALS: Ht 165.1 cm; Wt 66.0 kg
--- NOTE | 2024-04-26 16:52 | ED.PDOC ---
GI ASSESSMENT HPI Comments rGaeme Olmos is a 83-year-old male patient who presents to the ED with chief complaint of bilateral lower quadrant dull abdominal pain intensity eight-/10 which started today at 2:30 p.m., not related with food intake, as been passing stool and gas, denies any kind of bleeding, nausea or vomiting. Patient had recent surgery three weeks ago due to obstruction status post small intestinal resection. Denies fever, chills, chest pain, dyspnea, palpitation, syncope, nausea, vomiting, diarrhea, constipation, bleeding, recent travel, unintentional weight loss and motor or sensory deficits. Past medical history: Hypertension, coronary artery disease status post CABG with one vessel disease (LVEF 55%, moderate to severe MR and TR, RVSP 42 mmHg. Seizure disorder, inguinal hernia status postop in two opportunities, small-brunilda wel obstruction status post resection, BPH. Surgical history: CABG, hernia repair, resection of small bowel Family history: Noncontributory Social history: Lives in [place] with . Denies current tobacco, alcohol and other drug abuse Allergies: Denies Home medication: Aspirin, Plavix, Keppra, metoprolol, finasteride Chief Complaint: Abdominal Pain Time Seen by MD: 16:24 Primary Care Provider: JAZZ Allergies: Coded Allergies: NO KNOWN ALLERGIES (Unverified , 12/10/23) Home Meds Active Scripts Tramadol Hcl (Tramadol Hcl) 50 Mg Tab, 50 MG PO TID, #20 TAB Prov:CHEIKH GUIDRY MD 04/06/24 Docusate Sodium (Dulcolax Stool Softener) 100 Mg Cap, 100 MG PO BID for 3 Days, #6 CAP Prov:JAMIN BETH MD 10/01/23 Levetiracetam (KEPPRA TABLET) 500 Mg Tb, 500 MG PO BID, #120 TAB Prov:CORDELIA BARON MD 06/27/22 Finasteride (Finasteride) 5 Mg Tab, 1 TAB PO QPM, #90 TAB 1 Refill Prov:CORDELIA BARON MD 06/26/22 Reported Medications Aspirin (Aspirin Low Dose) 81 Mg Chw, 1 TAB PO DAILY for 90 Days, #90 01/12/24 Tamsulosin Hcl (Tamsulosin Hcl) 0.4 Mg Cap, 1 CAP PO DAILY for 90 Days, #90 10/14/24 Metoprolol Tartrate (Lopressor) 25 Mg Tb, 1 TAB PO BID for 30 Days, #60 0 Refills 01/12/24 Atorvastatin Calcium (Lipitor) 40 Mg Tab, 1 TAB PO DAILY for 90 Days, #90 01/12/24 Clopidogrel Bisulfate (Plavix) 75 Mg Tab, 75 MG PO DAILY for CHEST PAIN 10/12/11 Mode of Arrival: Wheelchair Past Medical History PAST MEDICAL HISTORY: Cancer, CVA, High Lipids, HTN, Kidney Stones, [place], Seizures, TIA Surgical History: CABG, Hernia Repair, Tonsillectomy Family History Family History: Reviewed,noncontributory to illness, Family hx of Kidney maira Social History Smoker: Non-Smoker Alcohol: Rarely Drugs: Denies Drug Use Lives In: Home Physical Exam General Appearance: No Apparent Distress, Normal HEENT: Normal ENT Inspection, Pharynx Normal, TMs Normal Neck: Full Range of Motion, Non-Tender, Normal, Normal Inspection Respiratory: Chest Non-Tender, Lungs Clear, No Accessory Muscle Use, No Respiratory Distress, Normal Breath Sounds Cardiovascular: No Edema, No JVD, No Murmur, No Gallop, Normal Peripheral Pulses, Regular Rate/Rhythm Breast Exam: Deferred Gastrointestinal: No Organomegaly, Non Tender, No Pulsatile Mass, Normal Bowel Sounds, Soft, Other (Surgical wound of laparotomy is intact, nor erythema, no collections.) Genitalia: Deferred Pelvic: Deferred Rectal: Deferred Extremities: No calf tenderness, Normal capillary refill, Normal inspection, Normal range of motion, Non-tender, No pedal edema Neurologic: Alert, neurology technician II-XII nml as Tested, No Motor Deficits, Normal Affect, Normal Mood, No Sensory Deficits Cerebellar Function: Normal Reflexes: Normal Skin: Dry, Normal Color, Warm Lymphatic: No Adenopathy Was a procedure done? Was a procedure done?: No GI differential Dx Differential Diagnosis: AAA, Aortic dissection, Bowel Obstruction, Diverticular disease, Gastritis/PUD, Gastroenteritis, Urinary Obstruction, UTI, Urolithiasis X-Ray, Labs, Meds, VS Vital Signs Date Time Temp Pulse Resp B/P (MAP) Pulse Ox O2 Delivery O2 Flow Rate FiO2 04/26/24 19:50 83 14 98 Room Air* 0 21 04/26/24 19:49 97.8 83 14 136/61 (86) 98 97.8 04/26/24 16:25 97.6 79 18 129/64 (85) 96 Lab Test 04/26/24 19:16 04/26/24 17:07 04/26/24 16:25 Range/Units Lactic Acid Level 1.6 2.7 *H 0.4-2.0 mmol/L White Blood Count 5.8 4.4-10.8 10^3/uL Red Blood Count 5.03 4.5-5.90 10^6/uL Hemoglobin 13.4 L 13.5-17.5 g/dL Hematocrit 41.6 41.0-53.0 % Mean Corpuscular Volume 82.7 80.0-100.0 fL Mean Corpuscular Hemoglobin 26.7 L 28.0-32.0 pg Mean Corpuscular Hemoglobin Concent 32.2 32.0-36.0 g/dL Red Cell Distribution Width 21.5 H 11.8-14.3 % Platelet Count 186 140-450 10^3/uL Mean Platelet Volume 8.3 6.9-10.8 fL Neutrophils (%) (Auto) 54.1 37.0-80.0 % Lymphocytes (%) (Auto) 28.3 10.0-50.0 % Monocytes (%) (Auto) 12.3 H 0.0-12.0 % Eosinophils (%) (Auto) 4.9 0.0-7.0 % Basophils (%) (Auto) 0.4 0.0-2.0 % Neutrophils # (Auto) 3.1 1.6-8.6 10 ^3/uL Lymphocytes # (Auto) 1.6 0.4-5.4 10 ^3/uL Monocytes # (Auto) 0.7 0-1.3 10 ^3/uL Eosinophils # (Auto) 0.3 0-0.8 10 ^3/uL Basophils # (Auto) 0 0-0.2 10 ^3/uL Nucleated Red Blood Cells 0.2 % Prothrombin Time 11.5 9.3-11.8 sec Prothrombin Time INR 1.09 0.9-1.15 Activated Partial Thromboplast Time 25.5 24.5-34.5 SEC Sodium Level 138 136-145 mmol/L Potassium Level 4.1 3.5-5.1 mmol/L Chloride Level 106 98-107 mmol/L Carbon Dioxide Level 25 20-31 mmol/L Anion Gap 7 5-15 Blood Urea Nitrogen 16 9-23 mg/dL Creatinine 0.86 0.700-1.30 mg/dL Glomerular Filtration Rate Calc 86 >90 mL/min BUN/Creatinine Ratio 18.6 10.0-20.0 Serum Glucose 107 H 74-106 mg/dL Calcium Level 9.3 8.7-10.4 mg/dL Phosphorus Level 1.9 L 2.4-5.1 mg/dL Magnesium Level 2.2 1.6-2.6 mg/dL Total Bilirubin 0.6 0.2-1.0 mg/dL Aspartate Amino Transferase (AST) 26 13-40 U/L Alanine Aminotransferase (ALT) 27 7-40 U/L Alkaline Phosphatase 133 H 46-116 U/L Total Protein 6.6 5.7-8.2 g/dL Albumin 4.6 3.2-4.8 g/dL Thyroid Stimulating Hormone (TSH) 3.68 0.55-4.78 uIU/mL Urine Color Yellow Yellow Urine Clarity Clear Clear Urine pH 5.5 5.0-9.0 Urine Specific [place] 1.023 1.001-1.035 Urine Protein Trace H Negative Urine Ketones Negative Negative Urine Blood Negative Negative /uL Urine Nitrite Negative Negative Urine Bilirubin Negative Negative Urine Urobilinogen Normal Negative mg/dL Urine Leukocyte Esterase Negative Negative /uL Urine RBC 2 0 - 3 /hpf Urine Microscopic WBC 2 0-3 /HPF Urine Squamous Epithelial Cells None seen <5 /hpf Urine Calcium Oxalate Crystals Many None Seen Urine Bacteria None seen None Seen /hpf Urine Mucus Few None Seen Urine Glucose Normal Normal mg/dL Urine Opiates Screen Neg NEGATIVE Urine Fentanyl Screen Neg NEGATIVE Urine Barbiturates Screen Neg NEGATIVE Urine Phencyclidine Screen Neg NEGATIVE Urine Amphetamines Screen Neg NEGATIVE Urine Benzodiazepines Screen Neg NEGATIVE Urine Cocaine Screen Neg NEGATIVE Urine Cannabinoids Screen Neg NEGATIVE Current Medications Medications (Trade) Dose Ordered Sig/Edin Route Start Time Stop Time Status Last Admin Sodium Chloride 1,000 ml @ 100 mls/hr Q10H IV 04/26/24 18:15 04/26/24 18:37 Tamsulosin HCl (Flomax) 0.4 mg ONCE ONCE PO 04/26/24 18:15 04/26/24 18:16 DC 04/26/24 18:37 X-Ray, Labs, Meds, VS Comment Reviewed urine analysis (presented many calcium oxalate crystals in urine red blood cells plus two), lactic acid 2.7 which improved after IV fluids to 1.6, normal renal function, rest of laboratory within normal limits. Abdominal and pelvic CT scan without contrast showed bilateral nonobstructive nephrolithiasis. Chest x-ray within normal limits Time of 1ST Reevaluation: 20:33 Reevaluation 1ST: Improved Patient Education/Counseling: Diagnosis, Treatment, Prognosis Family Education/Counseling: Diagnosis, Treatment, Prognosis Departure 1 Departure Time of Disposition: 20:34 Impression: Primary Impression: Nephrolithiasis Disposition: 01 HOME / SELF CARE / HOMELESS Condition: Stable Referrals: RUFUS FRENCH MD Additional Instructions: Patient responded to p.o. tamsulosin, IV fluids and p.o. Tylenol. Currently patient's lactic acid is 1.6, urine analysis showed many calcium oxalate crystals any urine red blood cells plus two. Abdominal and pelvic CT scan without contrast showed bilateral nonobstructive nephrolithiasis. Spoke on the phone with Dr. French who agree with management plan, he suggest that patient should call his office after 8:00 a.m. to see if he can book him for an appointment tomorrow. Abdominal and pelvis CT ruled out obstruction, and physi nolvia examination showed no distention, and patient is releasing gases and having normal bowel movements. Patient hemodynamically stable, asymptomatic, in condition to be discharged home. Was granted under optimal medical therapy (indicated at least 1.5 until 2 L of fluid per day and continue with finasteride and tamsulosin), gave her advice on healthy lifestyle habits and follow-up with PCP and general surgeon as outpatient. Critical Care Note Critical Care Time?: No Stability Stability form required: No Heart Score Heart Score: Heart Score Response (Comments) Value History N/A 0 EKG N/A 0 Age N/A 0 Risk Factors N/A 0 Troponin N/A 0 Total 0 TIEN SEVILLA RESIDENT Apr 26, 2024 16:52
--- NOTE | 2024-04-26 17:13 | DVH ---
CHEST RADIOGRAPH Indication: abdominal pain Technique: Single frontal view of the chest was obtained COMPARISON: XY CHEST PORTABLE on DOS: 04/02/24, XY CHEST PORTABLE on DOS: 04/01/24, XY CHEST PORTABLE on DOS: 03/31/24, XY CHEST PORTABLE on DOS: 03/30/24, XY CHEST XRAY 1 VIEW on DOS: 03/29/24 FINDINGS: Lines and Tubes: Median sternotomy Lungs: Left lower lobe airspace disease/atelectasis. Mild congestion. Pleura: No effusion. No pneumothorax. Cardiomediastinal contours: Unremarkable Bones: Unremarkable IMPRESSION: Mild congestion Left lower lobe airspace disease/atelectasis.
[2024-04-26 17:17] LABS: Urine Bacteria None Seen /hpf (None Seen)
--- NOTE | 2024-04-26 17:21 | DVH ---
Exam: CT CT AB PEL WO CON-NO ORAL OR IV History: Abdominal pain, recent obstruction status post op Comparison Study: CT CT AB PEL WO CON-NO ORAL OR IV on DOS: 01/29/24, CT CT AB PEL WO CON-NO ORAL OR IV on DOS: 04/04/23, CT ABD PELVIS WO CONTRAST on DOS: 09/28/20 TECHNIQUE: Multidetector CT of the abdomen and pelvis was performed from lung bases to pubic symphysi s. Imaging was performed without IV contrast. Axial, coronal, and sagittal multiplanar reformats were obtained from the axial data set by the technologist. RADIATION DOSE: DLP 388.6 mGy.cm; CTDI vol 8.36 mGy. Findings: Lungs: The lung bases are clear. Heart: No cardiomegaly or pericardial effusion. Liver: Unremarkable. Gallbladder: Unremarkable. Spleen: Unremarkable Pancreas: Unremarkable Adrenals: Unremarkable Kidneys: Right renal cysts. Bilateral nonobstructive nephrolithiasis. GI tract: Postsurgical changes of the bowel. : Unremarkable. Vasculature: Mild aortoiliac atherosclerosis. Lymphadenopathy: Absent Peritoneum: No ascites Musculoskeletal: Moderate multilevel degenerative changes of the thoracolumbar spine. Bilateral total hip arthroplasty. Soft tissues: Left lower quadrant hernia repair. Impression: 1. No acute abdominopelvic abnormalities. 2. No evidence of bowel obstruction. 3. Bilateral nonobstructive nephrolithiasis.
[2024-04-26 17:29] LABS: Basophils # (auto) 0 10 ^3/uL (0-0.2); Eosinophils # (auto) 0.3 10 ^3/uL (0-0.8); Monocytes # (auto) 0.7 10 ^3/uL (0-1.3)
[2024-04-26 17:30] LABS: Basophils % (auto) 0.4 % (0.0-2.0); Eosinophils % (auto) 4.9 % (0.0-7.0); Hematocrit 41.6 % (41.0-53.0); Hemoglobin 13.4 g/dL (13.5-17.5); Lymphocytes # (auto) 1.6 10 ^3/uL (0.4-5.4); Lymphocytes % (auto) 28.3 % (10.0-50.0); Mean Corpuscular Hemoglobin 26.7 pg (28.0-32.0); Mean Corpuscular Hgb Conc. 32.2 g/dL (32.0-36.0); Mean Corpuscular Volume 82.7 fL (80.0-100.0); Monocytes % (auto) 12.3 % (0.0-12.0); Neutrophils # (auto) 3.1 10 ^3/uL (1.6-8.6); Neutrophils % (auto) 54.1 % (37.0-80.0); Nucleated Red Blood Cells % 0.2 %; Platelet Count (auto) 186 10^3/uL (140-450); Red Blood Cells 5.03 10^6/uL (4.5-5.90); Red Cell Distribution Width 21.5 % (11.8-14.3); White Blood Cell 5.8 10^3/uL (4.4-10.8)
[2024-04-26 17:39] LABS: Urine Blood Negative /uL (Negative); Urine Clarity Clear (Clear); Urine Color Yellow (Yellow); Urine Mucus FEW (None Seen); Urine Protein, UAD TRACE (Negative); Urine Specific Gravity 1.023 (1.001-1.035); Urine Squamous Epithelial Cell None Seen /hpf (<5); Urine Urobilinogen Normal (Negative); Urine WBC 2 /HPF (0-3); Urine pH 5.5 (5.0-9.0)
[2024-04-26 17:47] LABS: Amphetamine Screen, Urine Neg (NEGATIVE); Barbiturate Scree,Urine Neg (NEGATIVE); Benzodiazephine Screen, Urine Neg (NEGATIVE); Cannabinoid Screen, Urine Neg (NEGATIVE); Cocaine Screen, Urine Neg (NEGATIVE); Opiate Scree,Urine Neg (NEGATIVE); Phencyclidine Screen, Urine Neg (NEGATIVE)
[2024-04-26 17:51] LABS: Alanine Aminotransferase 27 U/L (7-40); Albumin 4.6 g/dL (3.2-4.8); Anion Gap 7 (5-15); Aspartate Aminotransferase 26 U/L (13-40); BUN/Creatinine Ratio 18.6 (10.0-20.0); Blood Urea Nitrogen 16 mg/dL (9-23); Calcium 9.3 mg/dL (8.7-10.4); Carbon Dioxide 25 mmol/L (20-31); Chloride 106 mmol/L (98-107); INR 1.09 (0.9-1.15); Magnesium 2.2 mg/dL (1.6-2.6); Partial Thromboplastin Time 25.5 SEC (24.5-34.5); Potassium 4.1 mmol/L (3.5-5.1); Prothrombin Time 11.5 sec (9.3-11.8); Sodium 138 mmol/L (136-145)
[2024-04-26 17:52] LABS: Bilirubin, Total 0.6 mg/dL (0.2-1.0); Total Protein 6.6 g/dL (5.7-8.2)
[2024-04-26] MEDS: SODIUM CHLORIDE 0.9% 1,000 ML IV SCH (18:37)
[2024-04-26] MEDS: TAMSULOSIN HYDROCHLORIDE 0.4 MG CAP PO ONE (18:37)
[2024-04-26 18:44] LABS: Alkaline Phosphatase 133 U/L (46-116); Glucose 107 mg/dL (74-106); Phosphorus 1.9 mg/dL (2.4-5.1)
[2024-04-26 18:48] LABS: Lactic Acid w/Reflex 2.7 mmol/L (0.4-2.0)
[2024-04-26] MEDS ORDERED: SODIUM PHOSPHATES 20 MEQ in SODIUM CHL 0.9% 100 ML IV ONE (19:30)
[2024-04-26 19:49] VITALS: BP 136/61; TEMP 97.8
[2024-04-26 19:50] VITALS: PULSE 83; RESP 14; O2SAT 98
== END 2024-04-26 20:51 | disposition home or self-care (01) ==
LOC: ER 15:59
DX: N20.0 Calculus of kidney (principal); E78.5 Hyperlipidemia, unspecified; I10 Essential (primary) hypertension; Z90.89 Acquired absence of other organs; Z79.899 Other long term (current) drug therapy; Z98.890 Other specified postprocedural states
CPT/HCPCS: 36415; 71045; 74176; 80053; 80307; 81001; 83605; 83735; 84100; 84443; 85025; 85610; 85730; 96360; 99284; J7030

== ENCOUNTER 2024-09-11 23:27 | Inpatient (IN) | payer OTHER ==
[~2024-09-11] VITALS: Ht 165.1 cm; Wt 72.0 kg
--- NOTE | 2024-09-12 00:16 | ED.PDOC ---
History of Present Illness HPI Comments 83 y/o M is BIBA with spouse for c/o bruising and abrasions to left forehead and elbow and left hip pain s/p mechanical trip and fall. Patient is a resident of a [facility] and is reported to have injured himself after losing balance when attempting to walk himself unsupervised to the toilet. Patient is stated to have fallen onto his left side into a nearby closet. No prior symptoms or lost of consciousness endorsed, with exception of a recent left arm fracture he sustained in August 18, 2024. Vitals were stated to have been stable and within normal limits. Patient is on Plavix, currently. Patient denies any additional injuries, headache or new left arm pain, dizziness, vision or speech changes, or further associated symptoms. Chief Complaint: Fall Injury Time Seen by MD: 00:00 Primary Care Provider: JAZZ Barnes Notes: Nurses Notes, Consultant Nurse Notes, Medications, Allergies Allergies: Coded Allergies: NO KNOWN ALLERGIES (Unverified , 12/10/23) Home Meds Active Scripts Tramadol Hcl (Tramadol Hcl) 50 Mg Tab, 50 MG PO TID, #20 TAB Prov:CHEIKH GUIDRY MD 04/06/24 Docusate Sodium (Dulcolax Stool Softener) 100 Mg Cap, 100 MG PO BID for 3 Days, #6 CAP Prov:JAMIN BETH MD 10/01/23 Levetiracetam (KEPPRA TABLET) 500 Mg Tb, 500 MG PO BID, #120 TAB Prov:CORDELIA BARON MD 06/27/22 Finasteride (Finasteride) 5 Mg Tab, 1 TAB PO QPM, #90 TAB 1 Refill Prov:CORDELIA BARON MD 06/26/22 Reported Medications Aspirin (Aspirin Low Dose) 81 Mg Chw, 1 TAB PO DAILY for 90 Days, #90 01/12/24 Tamsulosin Hcl (Tamsulosin Hcl) 0.4 Mg Cap, 1 CAP PO DAILY for 90 Days, #90 01/12/24 Metoprolol Tartrate (Lopressor) 25 Mg Tb, 1 TAB PO BID for 30 Days, #60 0 Refills 01/12/24 Atorvastatin Calcium (Lipitor) 40 Mg Tab, 1 TAB PO DAILY for 90 Days, #90 01/12/24 Clopidogrel Bisulfate (Plavix) 75 Mg Tab, 75 MG PO DAILY for CHEST PAIN 10/12/11 Information Source: Patient, Emergency Med Personnel Mode of Arrival: EMS Severity: Moderate Timing: Hours Duration: Since onset Prehospital treatment: 12 Lead EKG, [employer] Past Medical History PAST MEDICAL HISTORY: CAD, Cancer, CVA (on Plavix ), Dementia, High Lipids, HTN, Kidney Stones, [place], Seizures (on Keppra ), TIA Past Medical History (Other): SBO BPH Small bowel obstruction with adhesions at the previous operative site status post exploratory laparotomy with bowel resection and primary end-to-end anastomosis Acute hypoxic respiratory failure postop intubated, extubated, currently on nasal cannula Surgical History: CABG (one-vessel), Hernia Repair (multiple inguinal hernia surgery ), Tonsillectomy Family History Family History: Reviewed,noncontributory to illness, Family hx of Kidney maira Social History Smoker: Non-Smoker Alcohol: Rarely Drugs: Denies Drug Use Lives In: Home All Other Systems: Reviewed and Negative (As per HPI) Physical Exam General Appearance: No Apparent Distress, Normal HEENT: Pharynx Normal, TMs Normal, Other (contusions and abrasions to left forehead; otherwise normal HEENT inspection ) Neck: Full Range of Motion, Non-Tender, Normal, Normal Inspection Respiratory: Chest Non-Tender, Lungs Clear, No Accessory Muscle Use, No Respiratory Distress, Normal Breath Sounds Cardiovascular: No Edema, No JVD, No Murmur, No Gallop, Normal Peripheral Pulses, Regular Rate/Rhythm Breast Exam: Deferred Gastrointestinal: No Organomegaly, Non Tender, No Pulsatile Mass, Normal Bowel Sounds, Soft Genitalia: Deferred Pelvic: Deferred Rectal: Deferred Extremities: No calf tenderness, Normal capillary refill, Normal range of motion, Non-tender, No pedal edema, Tender (left hip), Other (left arm in splint) Musculoskeletal : Apperance: Normal Neurologic: 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 Was a procedure done?: No Differential Dx Considerations may include: fractures, dislocations, contusions, bruising, lacerations, abrasions, closed head injury, among others X-Ray, Labs, Meds, VS Vital Signs Date Time Temp Pulse Resp B/P (MAP) Pulse Ox O2 Delivery O2 Flow Rate FiO2 09/12/24 04:00 76 18 102/55 (71) 94 09/12/24 02:45 79 18 107/59 09/12/24 02:12 80 19 109/66 09/12/24 02:00 76 20 109/66 (80) 94 09/12/24 01:01 80 16 114/66 09/12/24 00:31 81 16 114/66 09/12/24 00:30 98.0 81 16 114/66 (82) 96 98.0 09/12/24 00:02 Room Air* 0 21 09/11/24 23:46 80 09/11/24 23:27 98.0 82 20 130/68 (88) 98 98.0 Lab Test 09/12/24 02:25 Range/Units White Blood Count 7.9 4.4-10.8 10^3/uL Red Blood Count 3.72 L 4.5-5.90 10^6/uL Hemoglobin 11.5 L 13.5-17.5 g/dL Hematocrit 34.1 L 41.0-53.0 % Mean Corpuscular Volume 91.6 80.0-100.0 fL Mean Corpuscular Hemoglobin 30.9 28.0-32.0 pg Mean Corpuscular Hemoglobin Concent 33.7 32.0-36.0 g/dL Red Cell Distribution Width 17.9 H 11.8-14.3 % Platelet Count 196 140-450 10^3/uL Mean Platelet Volume 8.0 6.9-10.8 fL Neutrophils (%) (Auto) 67.9 37.0-80.0 % Lymphocytes (%) (Auto) 17.9 10.0-50.0 % Monocytes (%) (Auto) 11.8 0.0-12.0 % Eosinophils (%) (Auto) 2.1 0.0-7.0 % Basophils (%) (Auto) 0.3 0.0-2.0 % Neutrophils # (Auto) 5.4 1.6-8.6 10 ^3/uL Lymphocytes # (Auto) 1.4 0.4-5.4 10 ^3/uL Monocytes # (Auto) 0.9 0-1.3 10 ^3/uL Eosinophils # (Auto) 0.2 0-0.8 10 ^3/uL Basophils # (Auto) 0 0-0.2 10 ^3/uL Nucleated Red Blood Cells 0.0 % Prothrombin Time 11.6 9.3-11.8 sec Prothrombin Time INR 1.11 0.9-1.15 Activated Partial Thromboplast Time 27.1 24.5-34.5 SEC Sodium Level 138 136-145 mmol/L Potassium Level 4.2 3.5-5.1 mmol/L Chloride Level 104 98-107 mmol/L Carbon Dioxide Level 24 20-31 mmol/L Anion Gap 10 5-15 Blood Urea Nitrogen 17 9-23 mg/dL Creatinine 0.86 0.700-1.30 mg/dL Glomerular Filtration Rate Calc 86 >90 mL/min BUN/Creatinine Ratio 19.8 10.0-20.0 Serum Glucose 135 H 74-106 mg/dL Calcium Level 8.6 L 8.7-10.4 mg/dL Total Bilirubin 1.1 H 0.2-1.0 mg/dL Aspartate Amino Transferase (AST) 20 <34 U/L Alanine Aminotransferase (ALT) 15 7-40 U/L Alkaline Phosphatase 225 H 46-116 U/L Total Protein 5.7 5.7-8.2 g/dL Albumin 3.8 3.2-4.8 g/dL Current Medications Medications (Trade) Dose Ordered Sig/Edin Route Start Time Stop Time Status Last Admin Morphine Sulfate 4 mg ONCE ONCE IV 09/12/24 00:30 09/12/24 00:31 DC 09/12/24 00:31 Ondansetron HCl (Zofran) 4 mg ONCE ONCE IV 09/12/24 00:30 09/12/24 00:31 DC 09/12/24 00:28 Morphine Sulfate 4 mg ONCE ONCE IV 09/12/24 02:00 09/12/24 02:01 DC 09/12/24 02:12 Time of 1ST Reevaluation: 00:30 Reevaluation 1ST: Unchanged Patient Education/Counseling: Diagnosis, Treatment, Other (need for admission ) Family Education/Counseling: Diagnosis, Treatment, Other (need for admission ) Departure 1 Departure Time of Disposition: 02:00 Impression: Primary Impression: Closed left hip fracture Additional Impressions: Head injury Fall Disposition: ADMITTED INPATIENT Condition: Guarded Discharged With: Self, Spouse Critical Care Note Critical Care Time?: No Stability Stability form required: No Heart Score Heart Score: Heart Score Response (Comments) Value History N/A 0 EKG N/A 0 Age N/A 0 Risk Factors N/A 0 Troponin N/A 0 Total 0 I personally scribed for BEKA CASTRO MD ([email or web address]) on 09/12/24 at 00:16. Electronically submitted by Hollis Olvera ([email or web address]). BEKA CASTRO MD Sep 12, 2024 00:16
[2024-09-12] MEDS: ONDANSETRON HCL 4 MG/2 ML VIAL IV ONE (00:28)
[2024-09-12] MEDS: MORPHINE SULFATE 4 MG/ML SYR/VIAL IV ONE ×2 (00:31→02:12)
--- NOTE | 2024-09-12 01:28 | DVH ---
EXAM: CT HEAD WITHOUT CONTRAST INDICATION: pain , fall TECHNIQUE: CT of the head without intravenous contrast. Radiation Dose : 1. Head: CT Dose: CTDI volume is 68.84 mGy. Dose-length product is 1356.29 mGy*cm The dose indicators for CT are the volume Computed Tomography (CT) Dose Index (CTDIvol) and the Dose Length Product (DLP), and are measured in units of mGy and mGy-cm, respectively. These indicators are not patient dose, but values generated from the CT scanner acquisition factors. The report includes radiation exposure data for exposures received during this examination. COMPARISON: CT HEAD WITHOUT CONTRAST on DOS: 04/04/23, CT HEAD WITHOUT CONTRAST on DOS: 08/24/22, CT STR JADE CTH on DOS: 08/11/22, CT HEAD WITHOUT CONTRAST on DOS: 06/25/22 FINDINGS: There is no evidence of acute intracranial hemorrhage, extra-axial collection, mass effect, midline s hift, herniation or hydrocephalus. Increased prominence of the ventricles, sulci and cisterns is consistent with the sequelae of atrophi c cortical volume loss. The lanza-white differentiation is intact. Moderate diffuse confluent periventricular and subcortical white matter hypoattenuation is nonspecifi c but may be related to small vessel ischemic disease. The visualized paranasal sinuses and mastoid air cells are clear. The surrounding soft tissues and osseous structures are unremarkable. IMPRESSION: 1. No acute intracranial abnormality. 2. 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 Radiation optimization: All CT scans at this facility use at least one of these dose optimization jonh hniques: automated exposure control mA and/or kV adjustment per patient size (includes targeted exam s where dose is matched to clinical indication) or iterative reconstruction.
--- NOTE | 2024-09-12 01:44 | DVH ---
CLINICAL INDICATION: pain fall TECHNIQUE: XY L HIP COMPLETE XRAY Comparison: None FINDINGS/IMPRESSION: : Hardware is present status post bilateral total hip arthroplasty. Periprosthetic fracture is present within the left subtrochanteric femur. Diffuse generalized osseous demineralization. No evidence of hardware complication on the right.
[2024-09-12 02:49] LABS: Basophils # (auto) 0 10 ^3/uL (0-0.2); Basophils % (auto) 0.3 % (0.0-2.0); Eosinophils # (auto) 0.2 10 ^3/uL (0-0.8); Eosinophils % (auto) 2.1 % (0.0-7.0); Hematocrit 34.1 % (41.0-53.0); Hemoglobin 11.5 g/dL (13.5-17.5); Lymphocytes # (auto) 1.4 10 ^3/uL (0.4-5.4); Lymphocytes % (auto) 17.9 % (10.0-50.0); Mean Corpuscular Hemoglobin 30.9 pg (28.0-32.0); Mean Corpuscular Hgb Conc. 33.7 g/dL (32.0-36.0); Mean Corpuscular Volume 91.6 fL (80.0-100.0); Monocytes # (auto) 0.9 10 ^3/uL (0-1.3); Monocytes % (auto) 11.8 % (0.0-12.0); Neutrophils # (auto) 5.4 10 ^3/uL (1.6-8.6); Neutrophils % (auto) 67.9 % (37.0-80.0); Platelet Count (auto) 196 10^3/uL (140-450); Red Blood Cells 3.72 10^6/uL (4.5-5.90); Red Cell Distribution Width 17.9 % (11.8-14.3); White Blood Cell 7.9 10^3/uL (4.4-10.8)
[2024-09-12 02:58] LABS: Alanine Aminotransferase 15 U/L (7-40); Albumin 3.8 g/dL (3.2-4.8); Alkaline Phosphatase 225 U/L (46-116); Anion Gap 10 (5-15); Aspartate Aminotransferase 20 U/L (<34); BUN/Creatinine Ratio 19.8 (10.0-20.0); Blood Urea Nitrogen 17 mg/dL (9-23); Calcium 8.6 mg/dL (8.7-10.4); Carbon Dioxide 24 mmol/L (20-31); Chloride 104 mmol/L (98-107); Glucose 135 mg/dL (74-106); Potassium 4.2 mmol/L (3.5-5.1); Sodium 138 mmol/L (136-145); Total Protein 5.7 g/dL (5.7-8.2)
[2024-09-12 02:59] LABS: Bilirubin, Total 1.1 mg/dL (0.2-1.0)
--- NOTE | 2024-09-12 02:59 | DVH ---
CHEST RADIOGRAPH Indication: pre-op Technique: Single frontal view of the chest was obtained COMPARISON: XY CHEST XRAY 1 VIEW on DOS: 04/26/24, XY CHEST PORTABLE on DOS: 04/02/24, XY CHEST PORTABLE on DOS: 04/01/24, XY CHEST PORTABLE on DOS: 03/31/24, XY CHEST PORTABLE on DOS: 03/30/24 FINDINGS: Lines and Tubes: None Lungs: Moderate left hemidiaphragmatic elevation and left basilar atelectasis. Pleura: No effusion. No pneumothorax. Cardiomediastinal contours: Unremarkable. Surgical clips. Bones: Unremarkable IMPRESSION: 1. No acute disease. 2. Left hemidiaphragmatic elevation and left basilar atelectasis.
--- NOTE | 2024-09-12 02:59 | DVH ---
CLINICAL INDICATION: pain recent fracture TECHNIQUE: XY L WRIST 2 VIEW XRAY Comparison: None FINDINGS/IMPRESSION: : Cast material partially obscures detail. Moderately displaced comminuted Colles' type distal radial fracture.
[2024-09-12 03:04] LABS: INR 1.11 (0.9-1.15); Partial Thromboplastin Time 27.1 SEC (24.5-34.5); Prothrombin Time 11.6 sec (9.3-11.8)
--- NOTE | 2024-09-12 04:11 | DVHINCON2 ---
Family History: Alcoholism G8 FATHER FH: chronic kidney disease G8 MOTHER Allergies: Coded Allergies: NO KNOWN ALLERGIES (Unverified , 12/10/23) Home Meds Active Scripts Tramadol Hcl (Tramadol Hcl) 50 Mg Tab, 50 MG PO TID, #20 TAB Prov:CHEIKH GUIDRY MD 04/06/24 Docusate Sodium (Dulcolax Stool Softener) 100 Mg Cap, 100 MG PO BID for 3 Days, #6 CAP Prov:JAMIN BETH MD 10/01/23 Levetiracetam (KEPPRA TABLET) 500 Mg Tb, 500 MG PO BID, #120 TAB Prov:CORDELIA BARON MD 06/27/22 Finasteride (Finasteride) 5 Mg Tab, 1 TAB PO QPM, #90 TAB 1 Refill Prov:CORDELIA BARON MD 06/26/22 Reported Medications Aspirin (Aspirin Low Dose) 81 Mg Chw, 1 TAB PO DAILY for 90 Days, #90 01/12/24 Tamsulosin Hcl (Tamsulosin Hcl) 0.4 Mg Cap, 1 CAP PO DAILY for 90 Days, #90 01/12/24 Metoprolol Tartrate (Lopressor) 25 Mg Tb, 1 TAB PO BID for 30 Days, #60 0 Refills 01/12/24 Atorvastatin Calcium (Lipitor) 40 Mg Tab, 1 TAB PO DAILY for 90 Days, #90 01/12/24 Clopidogrel Bisulfate (Plavix) 75 Mg Tab, 75 MG PO DAILY for CHEST PAIN 10/12/11 Vital Signs Vital Signs Date Time Temp Pulse Resp B/P (MAP) Pulse Ox O2 Delivery O2 Flow Rate FiO2 09/12/24 02:12 80 19 109/66 09/12/24 00:30 98.0 96 98.0 09/12/24 00:02 Room Air* 0 21 Labs/Diagnostic Data Labs Test 09/12/24 02:25 Range/Units White Blood Count 7.9 4.4-10.8 10^3/uL Red Blood Count 3.72 L 4.5-5.90 10^6/uL Hemoglobin 11.5 L 13.5-17.5 g/dL Hematocrit 34.1 L 41.0-53.0 % Mean Corpuscular Volume 91.6 80.0-100.0 fL Mean Corpuscular Hemoglobin 30.9 28.0-32.0 pg Mean Corpuscular Hemoglobin Concent 33.7 32.0-36.0 g/dL Red Cell Distribution Width 17.9 H 11.8-14.3 % Platelet Count 196 140-450 10^3/uL Mean Platelet Volume 8.0 6.9-10.8 fL Neutrophils (%) (Auto) 67.9 37.0-80.0 % Lymphocytes (%) (Auto) 17.9 10.0-50.0 % Monocytes (%) (Auto) 11.8 0.0-12.0 % Eosinophils (%) (Auto) 2.1 0.0-7.0 % Basophils (%) (Auto) 0.3 0.0-2.0 % Neutrophils # (Auto) 5.4 1.6-8.6 10 ^3/uL Lymphocytes # (Auto) 1.4 0.4-5.4 10 ^3/uL Monocytes # (Auto) 0.9 0-1.3 10 ^3/uL Eosinophils # (Auto) 0.2 0-0.8 10 ^3/uL Basophils # (Auto) 0 0-0.2 10 ^3/uL Nucleated Red Blood Cells 0.0 % Prothrombin Time 11.6 9.3-11.8 sec Prothrombin Time INR 1.11 0.9-1.15 Activated Partial Thromboplast Time 27.1 24.5-34.5 SEC Sodium Level 138 136-145 mmol/L Potassium Level 4.2 3.5-5.1 mmol/L Chloride Level 104 98-107 mmol/L Carbon Dioxide Level 24 20-31 mmol/L Anion Gap 10 5-15 Blood Urea Nitrogen 17 9-23 mg/dL Creatinine 0.86 0.700-1.30 mg/dL Glomerular Filtration Rate Calc 86 >90 mL/min BUN/Creatinine Ratio 19.8 10.0-20.0 Serum Glucose 135 H 74-106 mg/dL Calcium Level 8.6 L 8.7-10.4 mg/dL Total Bilirubin 1.1 H 0.2-1.0 mg/dL Aspartate Amino Transferase (AST) 20 <34 U/L Alanine Aminotransferase (ALT) 15 7-40 U/L Alkaline Phosphatase 225 H 46-116 U/L Total Protein 5.7 5.7-8.2 g/dL Albumin 3.8 3.2-4.8 g/dL ADELINA SHAHID NP Sep 12, 2024 04:11
--- NOTE | 2024-09-12 04:18 | PRN ---
Misceleneous Note Note Note Patient was seen and evaluated in the ER bed five in presence with the patient's . At This time we are waiting production officer back from the on-call orthopedic surgeon regarding periprosthetic femur fracture and left wrist Colles' fracture that occurred on August 18, 2024. We will plan according to orthopedic surgeon's recommendation. ADELINA SHAHID NP Sep 12, 2024 04:18
[2024-09-12] MEDS ORDERED: DOCUSATE SOD 100 MG CAP PO PRN (05:00)
[2024-09-12] MEDS ORDERED: NITROGLYCERIN 0.4 MG SL TAB SL PRN (05:00)
[2024-09-12] MEDS ORDERED: LORazepam 2MG/ML-1ML VIAL IV PRN (05:00)
[2024-09-12] MEDS ORDERED: MORPHINE SULFATE INJ 2 MG/ml SYRG IV PRN (05:00)
[2024-09-12] MEDS ORDERED: ONDANSETRON HCL 4 MG/2 ML VIAL IV PRN (05:00)
--- NOTE | 2024-09-12 05:59 | DVH ---
EXAM: CT CT L HIP WITH OUT CONTRAST HISTORY: fracture COMPARISON: Pelvis and left hip radiographs from earlier same day, CT scan of the pelvis dated 2023. TECHNIQUE: Noncontrast axial CT images of the left hip were performed. Sagittal and coronal reformatt ed images were obtained. This CT exam was performed using one or more of the following dose reduction techniques: Automated exposure control, adjustment of the mA and/or kV according to patient size, or use of iterative reconstruction technique. Radiation Dose Information: CT Dose: CTDI volume is 20.82 [place] [address] mGy*cm. FINDINGS/IMPRESSION: 1. Left total hip arthroplasty re-identified with displaced and comminuted periprosthetic fracture of the proximal femoral metaphysis. There is some amorphous calcification about the fracture fragments likely due to fracture callus, suggesting that this fracture is subacute. 2. Postoperative changes of left inguinal herniorrhaphy with mesh, not fully imaged here. 3. Right inferior pubic ramus fracture. 4. Massive prostatic enlargement. Recommend nonemergent urology consultation if not already obtained.
--- NOTE | 2024-09-12 06:12 | DVHHP2 ---
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 Patient attempted to walk using a front wheel walker to the bathroom without assistance and fell into the closet. Patient is complaining of left hip pain and swelling 12/08. Also endorses head injury from the fall. Patient had previously experienced a Fall on August 18, 2024 and taken to [facility] as a trauma patient. At such time he had a Colles' fracture of the left wrist and a periprosthetic fracture of the left subtrochanteric femur, both injuries which have been readdressed during this visit. on that day Patient was transferred as a higher level of care as tier 2 trauma patient to [facility] where he was evaluated by an orthopedic surgeon there. Both injuries were treated without surgical intervention. patient was discharged to correction facility. At this time patient denies any fevers, chills, dizziness, syncope, chest pain, shortness of breath, palpitations, nausea, vomiting, additional injuries. Patient will be admitted for observation of head injury while being on oral anticoagulation therapy. 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 Past Surgical History: CABG Smoke: No ALCOHOL: none Drugs: None Lives: with Family Review of Systems Constitutional: No: Fever, Chills, Sweats, Weakness, Malaise, Other Eyes: No: Pain, Vision change, Conjunctivae inflammation, Eyelid inflammation, Other, Redness ENT: No: Ear pain, Ear discharge, Nose pain, Nose discharge, Nose congestion, Mouth pain, Mouth swelling, Throat pain, Throat swelling, Other Respiratory: No: Cough, Dry, Shortness of breath, SOB with excertion, Wheezing, Hemoptysis, Pleuritic Pain, Sputum, Wheezing, Other Cardiovascular: No: Chest Pain, Palpitations, Orthopnea, Paroxysmal Noc. Dyspnea, Edema, Lt Headedness, Other Gastrointestinal: No: Nausea, Vomiting, Abdominal Pain, Diarrhea, Constipation, Melena, Hematochezia, Other Genitourinary: No Dysuria, No Frequency, No Incontinence, No Hematuria, No Retention, No Other Musculoskeletal: arm pain, hand pain, leg pain Skin: Bruising Neurological: No: Weakness, Numbness, Incoordination, Change in speech, Confusion, Seizures, Other Allergies: Coded Allergies: NO KNOWN ALLERGIES (Unverified , 12/10/23) Medications Current Medications Medications Dose Ordered Sig/Edin Route Start Time Stop Time Status Last Admin Dose Admin Docusate Sodium 100 mg BID PRN PO 09/12/24 05:00 UNV Acetaminophen 650 mg Q6HP PRN PO 09/12/24 05:00 UNV Acetaminophen/ Hydrocodone Bitart 1 tab Q6HP PRN PO 09/12/24 05:00 UNV Exam Vital Signs Vital Signs Date Time Temp Pulse Resp B/P (MAP) Pulse Ox O2 Delivery O2 Flow Rate FiO2 09/12/24 04:00 76 18 102/55 (71) 94 09/12/24 00:30 98.0 98.0 09/12/24 00:02 Room Air* 0 21 General Appearance: Alert, Oriented X3, Cooperative, mild distress HEENT: Atraumatic, PERRLA, EOMI, Other (hematoma to left forehead) Respiratory: Clear to auscultation Cardiovascular: Regular rate, Normal S1, Normal S2 Abdominal: Normal bowel sounds, Soft, No tenderness Extremities: No clubbing, Normal pulses, Other (Mild left hip swelling with palpable tenderness. Visible redness) Neuro: Normal speech, Strength at 5/5 X4 ext Psych/Mental Status: Mental status NL, Mood NL Labs/Xrays Labs Test 09/12/24 02:25 Range/Units White Blood Count 7.9 4.4-10.8 10^3/uL Red Blood Count 3.72 L 4.5-5.90 10^6/uL Hemoglobin 11.5 L 13.5-17.5 g/dL Hematocrit 34.1 L 41.0-53.0 % Mean Corpuscular Volume 91.6 80.0-100.0 fL Mean Corpuscular Hemoglobin 30.9 28.0-32.0 pg Mean Corpuscular Hemoglobin Concent 33.7 32.0-36.0 g/dL Red Cell Distribution Width 17.9 H 11.8-14.3 % Platelet Count 196 140-450 10^3/uL Mean Platelet Volume 8.0 6.9-10.8 fL Neutrophils (%) (Auto) 67.9 37.0-80.0 % Lymphocytes (%) (Auto) 17.9 10.0-50.0 % Monocytes (%) (Auto) 11.8 0.0-12.0 % Eosinophils (%) (Auto) 2.1 0.0-7.0 % Basophils (%) (Auto) 0.3 0.0-2.0 % Neutrophils # (Auto) 5.4 1.6-8.6 10 ^3/uL Lymphocytes # (Auto) 1.4 0.4-5.4 10 ^3/uL Monocytes # (Auto) 0.9 0-1.3 10 ^3/uL Eosinophils # (Auto) 0.2 0-0.8 10 ^3/uL Basophils # (Auto) 0 0-0.2 10 ^3/uL Nucleated Red Blood Cells 0.0 % Prothrombin Time 11.6 9.3-11.8 sec Prothrombin Time INR 1.11 0.9-1.15 Activated Partial Thromboplast Time 27.1 24.5-34.5 SEC Sodium Level 138 136-145 mmol/L Potassium Level 4.2 3.5-5.1 mmol/L Chloride Level 104 98-107 mmol/L Carbon Dioxide Level 24 20-31 mmol/L Anion Gap 10 5-15 Blood Urea Nitrogen 17 9-23 mg/dL Creatinine 0.86 0.700-1.30 mg/dL Glomerular Filtration Rate Calc 86 >90 mL/min BUN/Creatinine Ratio 19.8 10.0-20.0 Serum Glucose 135 H 74-106 mg/dL Calcium Level 8.6 L 8.7-10.4 mg/dL Total Bilirubin 1.1 H 0.2-1.0 mg/dL Aspartate Amino Transferase (AST) 20 <34 U/L Alanine Aminotransferase (ALT) 15 7-40 U/L Alkaline Phosphatase 225 H 46-116 U/L Total Protein 5.7 5.7-8.2 g/dL Albumin 3.8 3.2-4.8 g/dL Assessment/Plan Assessment/Plan Head injury on oral anticoagulation Mechanical fall Reevaluation of left periprosthetic fracture of subtrochanteric femur. Reevaluation of Colles fracture of left wrist Hx seizure HX CAD s/p 1 vessel CABG Hx enlarged prostate Admit telemetry Orthopedic surgical consult for reevaluation of left periprosthetic fracture. Neuro checks with vital signs Seizure precautions, fall precautions Continue home medication Social service consult Physical therapy evaluation Gi ppx protonix / dvt ppx scd Plan discussed with: Patient, Spouse My Orders Orders - ADELINA SHAHID NP Procedure Category Date Status Time Ct L Hip With Out CT 09/12/24 Taken Contrast 04:52 Admit ADMIT 09/12/24 Transmitted 04:57 Code Status CODE 09/12/24 Transmitted 04:57 Vital Signs [facility] 09/12/24 In Process 04:57 Review Orders With [facility] 09/12/24 In Process Adm. 04:57 Encourage Activity As [facility] 09/12/24 In Process Tolerate 04:57 Consistent DIET 09/12/24 Transmitted Carb(Ccho)Diabetes Breakfast Oxygen By Face Mask RT 09/12/24 Transmitted 04:57 Docusate Sodium PHA 09/12/24 Logged Capsule (Colace 05:00 Acetaminophen Tablet PHA 09/12/24 Logged (Tylenol Tablet) 05:00 Notify Of Changes [facility] 09/12/24 In Process From Base 04:57 Advance Directive [facility] 09/12/24 In Process 04:57 Basic Metabolic Panel LAB 09/12/24 Logged 05:00 Basic Metabolic Panel LAB 09/13/24 Verified 05:00 Complete Blood Count LAB 09/12/24 Logged 05:00 Complete Blood Count LAB 09/13/24 Verified 05:00 Patient Condition ORDERS 09/12/24 Transmitted 04:57 Allergies [facility] 09/12/24 In Process 04:57 Hydrocodone-Acet PHA 09/12/24 Logged 5/325mg Tab (Allen 05:00 Ondansetron Hcl PHA 09/12/24 Logged (Zofran) 05:00 Morphine Sulfate PHA 09/12/24 Logged Injection 05:00 Sequential [facility] 09/12/24 In Process Compression Device Nitroglycerin PHA 09/12/24 Logged Sublingual (Ntrostat 05:00 Morphine Sulfate PHA 09/12/24 Logged Injection 05:00 Stat Ekg For Chest [facility] 09/12/24 In Process Pain 04:57 Notify Of Changes [facility] 09/12/24 In Process From Base 04:57 Campaign Management Senior Manager For [facility] 09/12/24 In Process 24 Hours 04:57 Emergency Dysrhythmia [facility] 09/12/24 In Process Protocol 04:57 Rhythm Strips Once [facility] 09/12/24 In Process Every Shift 04:57 Oxygen By Nasal RT 09/12/24 Transmitted Cannula 04:57 Levetiracetam Tablet PHA 09/12/24 Logged (Keppra Tablet) 10:00 Tamsulosin PHA 09/12/24 Logged Hydrochloride (Flomax) 10:00 Atorvastatin (Lipitor) PHA 09/12/24 Logged 10:00 Aspirin Tablet PHA 09/12/24 Logged 10:00 Metoprolol Tartrate PHA 09/12/24 Logged Tablet (Lopressor Ta 10:00 *Consult Dr. Callahan CONS 09/12/24 Transmitted Shon 04:57 Neuro Checks Q2hrs [facility] 09/12/24 In Process 04:57 * Postal Inspector CONS 09/12/24 Transmitted Consult Pt Request For Service PT 09/12/24 Logged 04:57 Lorazepam 2mg/Ml Inj PHA 09/12/24 Logged (Ativan Inj) 05:00 Seizure Precautions [facility] 09/12/[address] 04:57 Date of Service: Sep 12, 2024 Billing Provider: CORDELIA BARON MD Common Visit Codes: NOT BILLABLE CORDELIA BARON MD 09/12/24 1209: Review of Systems Allergies: Coded Allergies: NO KNOWN ALLERGIES (Unverified , 12/10/23) Additional Comments Additional Comments Additional Comments Patient's chart is reviewed and discussed with the nurse practitioner. I agree with his evaluation, documentation, assessment and care plan as outlined. ADELINA SHAHID NP Sep 12, 2024 06:12 CORDELIA BARON MD Sep 12, 2024 12:09
[2024-09-12] MEDS: TAMSULOSIN HYDROCHLORIDE 0.4 MG CAP PO SCH (10:54)
[2024-09-12] MEDS: ASPirin 81 mg TAB PO SCH (10:55)
[2024-09-12] MEDS: ATORVASTATIN 20 MG TAB PO SCH (10:55)
[2024-09-12] MEDS: levETIRAcetam 500 MG TAB PO SCH (10:55)
[2024-09-12] MEDS: METOPROLOL TARTRATE 25 MG TAB PO SCH (10:56)
[2024-09-12] MEDS: MORPHINE SULFATE INJ 2 MG/ml SYRG IV PRN (16:16)
[2024-09-12 16:30] VITALS: BP 98/66; PULSE 77; RESP 16; TEMP 97.8; O2SAT 95
[2024-09-12 20:00] VITALS: PULSE 91
[2024-09-12 21:00] VITALS: BP 98/52; PULSE 86; RESP 17; TEMP 97.6; O2SAT 95
[2024-09-12 21:15] VITALS: BP 90/52
[2024-09-12 21:30] VITALS: BP 88/50
[2024-09-13] VITALS (9 sets, daily range): BP systolic 94–119; BP diastolic 53–77; PULSE 60–78; RESP 15–18; TEMP 97–98.1; O2SAT 78–97
[2024-09-13 06:08] LABS: Basophils # (auto) 0 10 ^3/uL (0-0.2); Basophils % (auto) 0.5 % (0.0-2.0); Eosinophils # (auto) 0.4 10 ^3/uL (0-0.8); Eosinophils % (auto) 5.8 % (0.0-7.0); Hematocrit 32.3 % (41.0-53.0); Hemoglobin 10.9 g/dL (13.5-17.5); Lymphocytes # (auto) 1.3 10 ^3/uL (0.4-5.4); Lymphocytes % (auto) 19.1 % (10.0-50.0); Mean Corpuscular Hemoglobin 31.2 pg (28.0-32.0); Mean Corpuscular Hgb Conc. 33.9 g/dL (32.0-36.0); Mean Corpuscular Volume 92.1 fL (80.0-100.0); Monocytes # (auto) 0.9 10 ^3/uL (0-1.3); Monocytes % (auto) 13.8 % (0.0-12.0); Neutrophils # (auto) 4.2 10 ^3/uL (1.6-8.6); Neutrophils % (auto) 60.8 % (37.0-80.0); Platelet Count (auto) 163 10^3/uL (140-450); Red Blood Cells 3.51 10^6/uL (4.5-5.90); Red Cell Distribution Width 17.4 % (11.8-14.3); White Blood Cell 6.8 10^3/uL (4.4-10.8)
[2024-09-13 06:17] LABS: Calcium 9.1 mg/dL (8.7-10.4); Chloride 105 mmol/L (98-107); Potassium 4.7 mmol/L (3.5-5.1); Sodium 139 mmol/L (136-145)
[2024-09-13 06:18] LABS: Anion Gap 8 (5-15); Carbon Dioxide 26 mmol/L (20-31)
[2024-09-13 06:23] LABS: BUN/Creatinine Ratio 22.1 (10.0-20.0); Blood Urea Nitrogen 19 mg/dL (9-23); Glucose 104 mg/dL (74-106)
--- NOTE | 2024-09-13 06:57 | DVHINCON2 ---
Date of service: Sep 13, 2024 Reason for Consultation Left wrist and hip pain History of Present Illness 83 yo M with known hx of left distal radius and left periprosthetitc hip fracture. Patent had a fall at [facility] -- on anticoagulants. No current cp/sob/abd pain/nausea/vomiting. 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 Past Surgical History: CABG Family History: Alcoholism G8 FATHER FH: chronic kidney disease G8 MOTHER Allergies: Coded Allergies: NO KNOWN ALLERGIES (Unverified , 12/10/23) Home Meds Active Scripts Tramadol Hcl (Tramadol Hcl) 50 Mg Tab, 50 MG PO TID, #20 TAB Prov:CHEIKH GUIDRY MD 04/06/24 Docusate Sodium (Dulcolax Stool Softener) 100 Mg Cap, 100 MG PO BID for 3 Days, #6 CAP Prov:JAMIN BETH MD 10/01/23 Levetiracetam (KEPPRA TABLET) 500 Mg Tb, 500 MG PO BID, #120 TAB Prov:CORDELIA BARON MD 06/27/22 Finasteride (Finasteride) 5 Mg Tab, 1 TAB PO QPM, #90 TAB 1 Refill Prov:CORDELIA BARON MD 06/26/22 Reported Medications Aspirin (Aspirin Low Dose) 81 Mg Chw, 1 TAB PO DAILY for 90 Days, #90 01/12/24 Tamsulosin Hcl (Tamsulosin Hcl) 0.4 Mg Cap, 1 CAP PO DAILY for 90 Days, #90 01/12/24 Metoprolol Tartrate (Lopressor) 25 Mg Tb, 1 TAB PO BID for 30 Days, #60 0 Refills 01/12/24 Atorvastatin Calcium (Lipitor) 40 Mg Tab, 1 TAB PO DAILY for 90 Days, #90 01/12/24 Clopidogrel Bisulfate (Plavix) 75 Mg Tab, 75 MG PO DAILY for CHEST PAIN 10/12/11 Current Medications Current Medications Medications (Trade) Dose Ordered Sig/Edin Route PRN Reason Start Time Stop Time Status Last Admin Levetiracetam (Keppra Tablet) 500 mg BID PO 09/12/24 10:00 09/12/24 21:35 Tamsulosin HCl (Flomax) 0.4 mg DAILY PO 09/12/24 10:00 09/12/24 10:54 Atorvastatin Calcium (Lipitor) 40 mg DAILY PO 09/12/24 10:00 09/12/24 10:55 Aspirin 81 mg DAILY PO 09/12/24 10:00 09/12/24 10:55 Metoprolol Tartrate (Lopressor Tablet) 25 mg BID PO 09/12/24 10:00 09/12/24 10:56 Review of Systems 10 point ROS is neg except per HPI Vital Signs Vital Signs Date Time Temp Pulse Resp B/P (MAP) Pulse Ox O2 Delivery O2 Flow Rate FiO2 09/13/24 05:00 97.7 77 17 119/60 (79) 97 97.7 09/12/24 20:15 Room Air* 0 21 Physical Exam NAD LUE: splint in place +finger motion LLE: +TA/GS/EHL/FHL foot wwp Labs/Diagnostic Data Labs Test 09/13/24 05:32 09/12/24 02:25 Range/Units White Blood Count 6.8 4.4-10.8 10^3/uL Red Blood Count 3.51 L 4.5-5.90 10^6/uL Hemoglobin 10.9 L 13.5-17.5 g/dL Hematocrit 32.3 L 41.0-53.0 % Mean Corpuscular Volume 92.1 80.0-100.0 fL Mean Corpuscular Hemoglobin 31.2 28.0-32.0 pg Mean Corpuscular Hemoglobin Concent 33.9 32.0-36.0 g/dL Red Cell Distribution Width 17.4 H 11.8-14.3 % Platelet Count 163 140-450 10^3/uL Mean Platelet Volume 8.1 6.9-10.8 fL Neutrophils (%) (Auto) 60.8 37.0-80.0 % Lymphocytes (%) (Auto) 19.1 10.0-50.0 % Monocytes (%) (Auto) 13.8 H 0.0-12.0 % Eosinophils (%) (Auto) 5.8 0.0-7.0 % Basophils (%) (Auto) 0.5 0.0-2.0 % Neutrophils # (Auto) 4.2 1.6-8.6 10 ^3/uL Lymphocytes # (Auto) 1.3 0.4-5.4 10 ^3/uL Monocytes # (Auto) 0.9 0-1.3 10 ^3/uL Eosinophils # (Auto) 0.4 0-0.8 10 ^3/uL Basophils # (Auto) 0 0-0.2 10 ^3/uL Nucleated Red Blood Cells 0.0 % Sodium Level 139 136-145 mmol/L Potassium Level 4.7 3.5-5.1 mmol/L Chloride Level 105 98-107 mmol/L Carbon Dioxide Level 26 20-31 mmol/L Anion Gap 8 5-15 Blood Urea Nitrogen 19 9-23 mg/dL Creatinine 0.86 0.700-1.30 mg/dL Glomerular Filtration Rate Calc 86 >90 mL/min BUN/Creatinine Ratio 22.1 H 10.0-20.0 Serum Glucose 104 74-106 mg/dL Calcium Level 9.1 8.7-10.4 mg/dL Prothrombin Time 11.6 9.3-11.8 sec Prothrombin Time INR 1.11 0.9-1.15 Activated Partial Thromboplast Time 27.1 24.5-34.5 SEC Total Bilirubin 1.1 H 0.2-1.0 mg/dL Aspartate Amino Transferase (AST) 20 <34 U/L Alanine Aminotransferase (ALT) 15 7-40 U/L Alkaline Phosphatase 225 H 46-116 U/L Total Protein 5.7 5.7-8.2 g/dL Albumin 3.8 3.2-4.8 g/dL Plan/Recommendation Left distal radius and periprosthetic hip fracture follow up 1. WBAT LLE with walker 2. okay to weight bear with brace in place on left arm 3. pain control 4. fu with orthopedics in 4 weeks 5. PT Plan discussed with: Patient MADELINE LEACH MD Sep 13, 2024 06:57
--- NOTE | 2024-09-13 12:29 | ECG ---
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
--- NOTE | 2024-09-13 13:56 | DVHPN2 ---
Progress Note - Dictate Date Seen: Sep 13, 2024 Medical Necessity Reason Pt with a Central, PICC or Fol: No Subjective He is clinically stable. No complaints of pain. Waiting physical therapy to ambulate him. Evaluated by orthopedic surgeon recommended weight-bearing as tolerated and nurse surgical intervention at present. vital signs Vital Sign Date Time Temp Pulse Resp B/P (MAP) Pulse Ox O2 Delivery O2 Flow Rate FiO2 09/13/24 09:02 72 110/63 09/13/24 09:00 97.8 15 95 97.8 09/13/24 08:00 Room Air* 0 21 Total Intake and Output 09/12/24 09/12/24 09/13/24 14:59 22:59 06:59 Intake Total 450 ml 160 ml Output Total 150 ml 175 ml Balance 300 ml -15 ml medications Current Medications Medications Dose Ordered Sig/Edin Route Start Time Stop Time Status Last Admin Dose Admin Docusate Sodium 100 mg BID PRN PO 09/12/24 05:00 Acetaminophen 650 mg Q6HP PRN PO 09/12/24 05:00 Acetaminophen/ Hydrocodone Bitart 1 tab Q6HP PRN PO 09/12/24 05:00 Ondansetron HCl 4 mg Q4HP PRN IV 09/12/24 05:00 Morphine Sulfate 2 mg Q4HPRN PRN IV 09/12/24 05:00 09/12/24 16:16 2 MG Nitroglycerin 0.4 mg Q5MINP PRN SL 09/12/24 05:00 Morphine Sulfate 2 mg Q30M PRN IV 09/12/24 05:00 Levetiracetam 500 mg BID PO 09/12/24 10:00 09/13/24 09:03 500 MG Tamsulosin HCl 0.4 mg DAILY PO 09/12/24 10:00 09/13/24 09:01 0.4 MG Atorvastatin Calcium 40 mg DAILY PO 09/12/24 10:00 09/13/24 09:01 40 MG Aspirin 81 mg DAILY PO 09/12/24 10:00 09/13/24 09:02 81 MG Metoprolol Tartrate 25 mg BID PO 09/12/24 10:00 09/13/24 09:02 25 MG Lorazepam 0.5 mg Q4HPRN PRN IV 09/12/24 05:00 objective Alert awake oriented to place and person. Comfortable in bed. HEENT neck supple no JVD. Heart regular rate and rhythm S1 plus S2. Lungs fair air movement without rales wheezes. Abdomen soft nontender positive bowel sounds. Extremities no edema positive distal pedal pulses. laboratory and microbiology Laboratory Tests 09/13/24 05:32 Test 09/13/24 05:32 Range/Units Serum Glucose 104 74-106 mg/dL Assessment/Plan Continue physical therapy and weight-bearing as tolerated per Orthopedic recommendations. No surgical interventions. Social Service consultation for long term facility placement. Otherwise continue rest of supportive care and treatment. We will remove the Childs catheter prior to discharge. Discussed with the patient and nurse regarding care plan. Problems(with codes): (1) Closed left hip fracture (2) Head injury (3) Fall (4) Unsteady gait (5) Dementia Plan discussed with: Patient, Other CORDELIA BARON MD Sep 13, 2024 13:56
[2024-09-13] MEDS: ACETAMINOPHEN 325 MG TAB PO PRN (21:18)
[2024-09-14 05:00] VITALS: BP 116/62; PULSE 69; RESP 18; TEMP 97.7; O2SAT 95
[2024-09-14 08:00] VITALS: PULSE 67
[2024-09-14 09:14] VITALS: BP 117/71; PULSE 66; RESP 20; TEMP 97.8; O2SAT 93
[2024-09-14] MEDS ORDERED: ACET1CAP14 PO (13:07)
[2024-09-14 13:14] VITALS: BP 102/64; PULSE 74; RESP 20; TEMP 98.4; O2SAT 97
[2024-09-14] MEDS: HYDROcodone-ACET 5/325MG TAB PO PRN (14:20)
--- NOTE | 2024-09-14 14:45 | DVHDS2 ---
Discharge Summary Date of Admission Sep 12, 2024 at 04:57 Date of Discharge: Sep 14, 2024 Labs/Diagnostic Data: Laboratory Results Test 09/13/24 05:32 09/12/24 02:25 White Blood Count 6.8 10^3/uL (4.4-10.8) Red Blood Count 3.51 10^6/uL (4.5-5.90) Hemoglobin 10.9 g/dL (13.5-17.5) Hematocrit 32.3 % (41.0-53.0) Mean Corpuscular Volume 92.1 fL (80.0-100.0) Mean Corpuscular Hemoglobin 31.2 pg (28.0-32.0) Mean Corpuscular Hemoglobin Concent 33.9 g/dL (32.0-36.0) Red Cell Distribution Width 17.4 % (11.8-14.3) Platelet Count 163 10^3/uL (140-450) Mean Platelet Volume 8.1 fL (6.9-10.8) Neutrophils (%) (Auto) 60.8 % (37.0-80.0) Lymphocytes (%) (Auto) 19.1 % (10.0-50.0) Monocytes (%) (Auto) 13.8 % (0.0-12.0) Eosinophils (%) (Auto) 5.8 % (0.0-7.0) Basophils (%) (Auto) 0.5 % (0.0-2.0) Neutrophils # (Auto) 4.2 10 ^3/uL (1.6-8.6) Lymphocytes # (Auto) 1.3 10 ^3/uL (0.4-5.4) Monocytes # (Auto) 0.9 10 ^3/uL (0-1.3) Eosinophils # (Auto) 0.4 10 ^3/uL (0-0.8) Basophils # (Auto) 0 10 ^3/uL (0-0.2) Nucleated Red Blood Cells 0.0 % Sodium Level 139 mmol/L (136-145) Potassium Level 4.7 mmol/L (3.5-5.1) Chloride Level 105 mmol/L (98-107) Carbon Dioxide Level 26 mmol/L (20-31) Anion Gap 8 (5-15) Blood Urea Nitrogen 19 mg/dL (9-23) Creatinine 0.86 mg/dL (0.700-1.30) Glomerular Filtration Rate Calc 86 mL/min (>90) BUN/Creatinine Ratio 22.1 (10.0-20.0) Serum Glucose 104 mg/dL (74-106) Calcium Level 9.1 mg/dL (8.7-10.4) Prothrombin Time 11.6 sec (9.3-11.8) Prothrombin Time INR 1.11 (0.9-1.15) Activated Partial Thromboplast Time 27.1 SEC (24.5-34.5) Total Bilirubin 1.1 mg/dL (0.2-1.0) Aspartate Amino Transferase (AST) 20 U/L (<34) Alanine Aminotransferase (ALT) 15 U/L (7-40) Alkaline Phosphatase 225 U/L (46-116) Total Protein 5.7 g/dL (5.7-8.2) Albumin 3.8 g/dL (3.2-4.8) Other Laboratory Tests 09/13/24 05:32 Brief Hx & Hospital Course: 83-year-old male with past medical history of CAD s/p one-vessel CABG, angioplasty November 2023 on oral anticoagulation, BPH, recent abdominal surgery presents with the complaints of a ground level mechanical fall. Patient attempted to walk using a front wheel walker to the bathroom without assistance and fell into the closet. Patient is complaining of left hip pain and swelling 12/08. Also endorses head injury from the fall. Patient had previously experienced a Fall on August 18, 2024 and taken to [facility] as a trauma patient. At such time he had a Colles' fracture of the left wrist and a periprosthetic fracture of the left subtrochanteric femur, both injuries which have been readdressed during this visit. on that day Patient was transferred as a higher level of care as tier 2 trauma patient to [facility] where he was evaluated by an orthopedic surgeon there. Both injuries were treated without surgical intervention. [facility]. At this time patient denies any fevers, chills, dizziness, syncope, chest pain, shortness of breath, palpitations, nausea, vomiting, additional injuries. Patient will be admitted for observation of head injury while being on oral anticoagulation therapy. He is admitted to this hospital and underwent orthopedic evaluation and physical therapy evaluation. Essentially recommended nonsurgical conservative approach and physical therapy weight-bearing as tolerated. Patient participated with the PT. Pain is tolerable with Tylenol. Therefore discussions done with the patient and his caregivers/ regarding his discharge planning. Patient is living at a [facility]. Therefore they are requesting patient to be discharged back to [facility] with DME including hospital bed/mattress, physical therapy to be arranged with a walker and bedside commode. Therefore social Service and choice on-call case management coordinator involved and they are able to talked with the and make these arrangements made. Subsequently he is being discharged in stable condition. Patient to continue the medications for his discharge med reconciliation list and have follow up with the orthopedic surgeon as mentioned. I spoke to patient at bedside as well as over the phone regarding his hospital diagnosis, treatment he received, discharge medications, discharge instructions and follow-up plan of care. They have verbalized understanding of these and agree with the care plan as outlined. Consults/Reason for consult Plan/Recommendation Left distal radius and periprosthetic hip fracture follow up 1. WBAT LLE with walker 2. okay to weight bear with brace in place on left arm 3. pain control 4. fu with orthopedics in 4 weeks 5. PT Plan discussed with: Patient MADELINE MENENDEZ MD Sep 13, 2024 06:57 Condition at Discharge: Stable Final Diagnosis/Problems List falls, hx of old hip fx, left hand fx, physical deconditioning Discharge Disposition: Home with Health Services Discharge Instruct/Medications Diet: Consistent carbohydrate, Cardiac 2g Na,low cholest Activity: No Restrictions, As Tolerated Activity comment: with walker/assistance Follow Up/Referral: Dr.Samir Menendez 2 weeks Medications: see med rec New Medications: Acetaminophen (Tylenol) 325 Mg Cap 325 MG PO Q4HP PRN, #30 CAP Continued Medications: Aspirin (Aspirin Low Dose) 81 Mg Chw 1 TAB PO DAILY for 90 Days, #90 Atorvastatin Calcium (Lipitor) 40 Mg Tab 1 TAB PO DAILY for 90 Days, #90 Clopidogrel Bisulfate (Plavix) 75 Mg Tab 75 MG PO DAILY for CHEST PAIN Docusate Sodium (Dulcolax Stool Softener) 100 Mg Cap 100 MG PO BID for 3 Days, #6 CAP Finasteride (Finasteride) 5 Mg Tab 1 TAB PO QPM, #90 TAB 1 Refill Levetiracetam (Keppra Tablet) 500 Mg Tb 500 MG PO BID, #120 TAB Metoprolol Tartrate (Lopressor) 25 Mg Tb 1 TAB PO BID for 30 Days, #60 0 Refills Tamsulosin Hcl (Tamsulosin Hcl) 0.4 Mg Cap 1 CAP PO DAILY for 90 Days, #90 Discontinued Medications: Tramadol Hcl (Tramadol Hcl) 50 Mg Tab 50 MG PO TID, #20 TAB Discharge Statement: "Patient was advised to return to the ER or call 911 if any headaches, dizziness, shortness of breath, chest pain, abdominal pain, bleeding, fevers, or worsening of medical condition. Patient was counseled about treatment plan, medications, possible side effects, patientverbalized understanding. All questions were answered to the best of my ability. This discharge took greater then 30 minutes in planning, reviewing documentation, counseling the patient, and discussing with other team members." ASSESSMENT ASSESSMENT Assessment falls, hx of old hip fx, left hand fx, physical deconditioning CORDELIA BRAON MD Sep 14, 2024 14:45
[2024-09-14 15:25] VITALS: BP 102/64; PULSE 74; RESP 20; TEMP 98.4; O2SAT 97
[2024-09-14 16:50] VITALS: BP_SYST 118; BP_SYST 129; BP_DIAS 64; BP_DIAS 73; PULSE 70; PULSE 73; RESP 18; TEMP 98; O2SAT 96; O2SAT 97
== END 2024-09-14 19:15 | disposition home health service (06) | DRG 536 ==
LOC: ER 23:27 → EDBD 23:27 → EDSEX 23:27 → OVERFLOW 09-12 04:57 → TELE-CENTR 09-12 14:50
PROVIDERS: ADMIT Nurse Practitioner Family; ATTEND Nurse Practitioner Family
DX: S72.002A Fracture of unspecified part of neck of left femur, initial encounter for closed fracture (principal); S52.532A Colles' fracture of left radius, initial encounter for closed fracture; W18.30XA Fall on same level, unspecified, initial encounter; M97.02XD Periprosthetic fracture around internal prosthetic left hip joint, subsequent encounter; F03.90 Unspecified dementia, unspecified severity, without behavioral disturbance, psychotic disturbance, mood disturbance, and anxiety; R26.81 Unsteadiness on feet; I10 Essential (primary) hypertension; I25.10 Atherosclerotic heart disease of native coronary artery without angina pectoris; N40.0 Benign prostatic hyperplasia without lower urinary tract symptoms; Z79.02 Long term (current) use of antithrombotics/antiplatelets; Z79.01 Long term (current) use of anticoagulants; Z86.73 Personal history of transient ischemic attack (TIA), and cerebral infarction without residual deficits; Z87.442 Personal history of urinary calculi; Z95.1 Presence of aortocoronary bypass graft; Z79.82 Long term (current) use of aspirin; Y93.89 Activity, other specified; Y92.89 Other specified places as the place of occurrence of the external cause; Y99.8 Other external cause status
CPT/HCPCS: 36415; 70450; 71045; 73100; 73502; 73700; 80048; 80053; 85025; 85610; 85730; 93005; 96374; 96375; 97110; 97116; 97163; G0378; J2405

== ENCOUNTER 2025-03-18 19:52 | Emergency (ER) | payer MEDICARE, OTHER ==
[~2025-03-18] VITALS: Ht 162.6 cm; Wt 75.0 kg
[~2025-03-18 19:52] MED LIST changes: +ACET1CAP14 PO; -TRAM50TA2 PO
[2025-03-18 21:05] VITALS: BP 131/74; PULSE 76; RESP 17; TEMP 97.3; O2SAT 96
--- NOTE | 2025-03-18 21:20 | ED.PDOC ---
[facility]. trauma (HPI) HPI Comments Pt presents s/p [facility] [place] by Dr. Andrez Jack on his left forearm d/t fx that occurred in July. Pt was discharged today and has been bleeding through the dressing. Pt currently has in place the dressing he left the surgery center with POSITIVE BLOOD THINNERS PLAVIX. DENIES NUMBNESS, WEAKNESS, CHEST PAIN, SHORTNESS OF BREATH, OR DIZZINESS. Chief Complaint: Upper Extremity Time Seen by MD: 20:50 Primary Care Provider: JAZZ Barnes notes: Nurses Notes, Medications, Allergies Allergies: Coded Allergies: NO KNOWN ALLERGIES (Unverified , 12/10/23) Home Meds Active Scripts Acetaminophen (Tylenol) 325 Mg Cap, 325 MG PO Q4HP PRN, #30 CAP Prov:CORDELIA BARON MD 09/14/24 Docusate Sodium (Dulcolax Stool Softener) 100 Mg Cap, 100 MG PO BID for 3 Days, #6 CAP Prov:JAMIN BETH MD 10/01/23 Levetiracetam (KEPPRA TABLET) 500 Mg Tb, 500 MG PO BID, #120 TAB Prov:CORDELIA BARON MD 06/27/22 Finasteride (Finasteride) 5 Mg Tab, 1 TAB PO QPM, #90 TAB 1 Refill Prov:CORDELIA BARON MD 06/26/22 Reported Medications Aspirin (Aspirin Low Dose) 81 Mg Chw, 1 TAB PO DAILY for 90 Days, #90 01/12/24 Tamsulosin Hcl (Tamsulosin Hcl) 0.4 Mg Cap, 1 CAP PO DAILY for 90 Days, #90 01/12/24 Metoprolol Tartrate (Lopressor) 25 Mg Tb, 1 TAB PO BID for 30 Days, #60 0 Refills 01/12/24 Atorvastatin Calcium (Lipitor) 40 Mg Tab, 1 TAB PO DAILY for 90 Days, #90 01/12/24 Clopidogrel Bisulfate (Plavix) 75 Mg Tab, 75 MG PO DAILY for CHEST PAIN 10/12/11 Information Source: Patient Mode of Arrival: Ambulatory Past Medical History PAST MEDICAL HISTORY: CAD, Cancer, CVA, Dementia, High Lipids, HTN, Kidney Stones, [place], Seizures, TIA Surgical History: CABG, Hernia Repair, Tonsillectomy Family History Family History: Reviewed,noncontributory to illness, Family hx of Kidney maira Social History Smoker: Non-Smoker Alcohol: Rarely Drugs: Denies Drug Use Lives In: Home All Other Systems: Reviewed and Negative (SEE HPI) Physical Exam General Appearance: No Apparent Distress, Normal HEENT: Pharynx Normal Neck: Full Range of Motion, Non-Tender Respiratory: Lungs Clear, No Respiratory Distress, Normal Breath Sounds Cardiovascular: No Edema, No JVD, No Murmur, No Gallop, Normal Peripheral Pulses, Regular Rate/Rhythm Breast Exam: Deferred Gastrointestinal: No Organomegaly, Non Tender, No Pulsatile Mass, Normal Bowel Sounds, Soft Genitalia: Deferred Pelvic: Deferred Rectal: Deferred Extremities: Normal range of motion Musculoskeletal : Apperance: Normal Neurologic: Alert, No Motor Deficits, Normal Affect, Normal Mood, No Sensory Deficits Cerebellar Function: Normal Reflexes: Normal Skin: Dry, Normal Color, Warm, Wounds (LEFT WRIST AND ANTERIOR FOREARM NOTED SURGICAL SITE WITH SUTURES INTACT. NOTED OOZING OF BLOOD THROUGH INTACT SUTURES MILD TO MODERATE SIZE HEMATOMA WITH ECCHYMOSIS LACERATION. SKIN TEAR WITH BLEEDING SENSORY AND MOTION INTACT CAP REFILL LESS THAN 3 SECONDS POSITIVE RADIAL PULSE) Lymphatic: No Adenopathy Was a procedure done? Was a procedure done?: Yes Sedation Sedation?: No Informed consent obtained: Yes Laceration Repair : Location LEFT PROXIMAL ANTERIOR FOREARM AND WRIST Length 2 CM Anesthetic: Lidocaine, With epi Laceration Repair Prep: Saline, Betadine, by Irrigation Laceration Repair Wound Comple: epidermis/dermis repair Laceration Repair: Number of sutures (4), Simple, Non-adherent gauze, Gauze Informed consent obtained: Yes Risks, benefits, and alternati: Yes Notes PATIENT TOLERATED WELL MINIMAL BLOOD LOSS. SUTURES PLACED IN BETWEEN SURGICAL SUTURES TO CONTROLLED BLEEDING BLEEDING CONTROLLED Differential Diagnosis Multiple Trauma: Fractures, Contusion, Hematoma, Laceration X-Ray, Labs, Meds, VS Vital Signs Date Time Temp Pulse Resp B/P (MAP) Pulse Ox O2 Delivery O2 Flow Rate FiO2 03/18/25 21:05 76 17 96 Room Air 03/18/25 21:05 97.3 76 17 131/74 (93) 96 97.3 03/18/25 19:54 97.1 82 16 144/86 95 97.1 Current Medications Medications (Trade) Dose Ordered Sig/Edin Route Start Time Stop Time Status Last Admin Acetaminophen/ Hydrocodone Bitart ([place] 5/325MG Tab) 1 tab ONCE ONCE PO 03/18/25 21:30 03/18/25 21:31 DC 03/18/25 21:51 X-Ray, Labs, Meds, VS Comment FINDINGS/IMPRESSION: Distal radial transversely oriented metaphyseal fracture without visualized osseous bridging likely representing acute fracture component. Significant volar distal forearm to wrist soft tissue swelling. Severe degenerative change of the 1st carpometacarpal joint. Posttraumatic positive ulnar variance. Patient advised to call surgeon and schedule a follow up regarding the new fracture. Advised to keep splint on until follow up with surgeon. Dressing on monitor for bleeding return to the ER for any concerning symptoms. Continue your prescribed pain medication. We will start trial of antibiotics. Advised to rest increase p.o. fluids with electrolytes. ER return precautions given patient indicates understanding agrees with discharge plan of care Images Reviewed?: Images reviewed and evaluated by me Time of 1ST Reevaluation: 20:50 Reevaluation 1ST: Unchanged Time of 2ND Reevaluation: 21:59 Reevaluation 2ND: Improved Patient Education/Counseling: Diagnosis, Treatment, Need For Follow Up Family Education/Counseling: Diagnosis, Treatment Departure 1 Departure Time of Disposition: 21:59 Impression: Primary Impression: Closed fracture of metaphysis of distal end of radius Disposition: 01 HOME / SELF CARE / HOMELESS Condition: Stable e-Prescriptions Amoxicillin & Pot Clavulanate (AUGMENTIN TABLET) 875 Mg Tb 875 MG PO BID for 7 Days, #14 TAB Prov: RASHMI VICENTE 03/18/25 Discharged With: Spouse Critical Care Note Critical Care Time?: No Stability Stability form required: No RASHMI VICENTE Mar 18, 2025 21:20
--- NOTE | 2025-03-18 21:28 | DVH ---
EXAM: XY L WRIST 3+ VIEW XRAYINDICATION:: 84 years old, Male; Post fall injuring left forearm wrist surgical site. TECHNIQUE:: 3 views of the left wrist COMPARISON:: XR WRIST LEFT 3-4 VIEW on DOS: 12/13/24 FINDINGS/IMPRESSION: Distal radial transversely oriented metaphyseal fracture without visualized osseous bridging likely representing acute fracture component. Significant volar distal forearm to wrist soft tissue swelling. Severe degenerative change of the 1st carpometacarpal joint. Posttraumatic positive ulnar variance.
--- NOTE | 2025-03-18 21:30 | DVH ---
EXAM: XY L FOREARM XRAY INDICATION:: 84 years old, Male; Post fall injuring left forearm wrist surgical site. TECHNIQUE:: 2 views of the left forearm COMPARISON:: None available at the time of dictation. FINDINGS/IMPRESSION: Distal radial metaphyseal suspected acute fracture status post prior buttress plate placement. Fracture of the metaphysis. Suspected artifact projecting over the proximal radius.
[2025-03-18] MEDS: HYDROcodone-ACET 5/325MG TAB PO ONE (21:51)
[2025-03-18] MEDS ORDERED: AUG875T PO (22:09)
== END 2025-03-18 22:16 | disposition home or self-care (01) ==
LOC: ER 19:52
DX: S52.592A Other fractures of lower end of left radius, initial encounter for closed fracture (principal); E78.5 Hyperlipidemia, unspecified; I10 Essential (primary) hypertension; F03.90 Unspecified dementia, unspecified severity, without behavioral disturbance, psychotic disturbance, mood disturbance, and anxiety; I25.10 Atherosclerotic heart disease of native coronary artery without angina pectoris; M19.032 Primary osteoarthritis, left wrist; F10.90 Alcohol use, unspecified, uncomplicated; Z79.899 Other long term (current) drug therapy; Z90.89 Acquired absence of other organs; Z98.890 Other specified postprocedural states; Z95.1 Presence of aortocoronary bypass graft; Z87.442 Personal history of urinary calculi; Z79.02 Long term (current) use of antithrombotics/antiplatelets; Z86.73 Personal history of transient ischemic attack (TIA), and cerebral infarction without residual deficits; Z79.82 Long term (current) use of aspirin; X58.XXXA Exposure to other specified factors, initial encounter; Y93.89 Activity, other specified; Y92.89 Other specified places as the place of occurrence of the external cause; Y99.8 Other external cause status
CPT/HCPCS: 12001; 73090; 73110; 99284; A4649; 29125